=== PATIENT | male | born 1945 | race Caucasian/White ===

== ENCOUNTER 2019-11-05 12:47 | Outpatient (CLI) | payer MEDICARE, BC, SELFPAY ==
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
== END 2019-11-05 12:48 | disposition home or self-care (01) ==
LOC: ONCMED 12:55
PROVIDERS: PCP Family Medicine; Visit Provider Internal Medicine Medical Oncology
DX: C34.11 Malignant neoplasm of upper lobe, right bronchus or lung (principal); C77.0 Secondary and unspecified malignant neoplasm of lymph nodes of head, face and neck; C79.31 Secondary malignant neoplasm of brain; I12.9 Hypertensive chronic kidney disease with stage 1 through stage 4 chronic kidney disease, or unspecified chronic kidney disease; N18.9 Chronic kidney disease, unspecified; I25.10 Atherosclerotic heart disease of native coronary artery without angina pectoris; J44.9 Chronic obstructive pulmonary disease, unspecified; Z87.891 Personal history of nicotine dependence
CPT/HCPCS: 99203

== ENCOUNTER 2019-11-18 08:59 | Day surgery (SDC) | payer MEDICARE, BC, SELFPAY ==
[2019-11-15 17:37] VITALS: BMI 4510.9
--- NOTE | 2019-11-18 | SCC_ITS ---
Procedure Done: Right subclavian vein PowerPort placement under fluoroscopic guidance that was done by me through the whole entire procedure 16.8 seconds of fluoroscopic guidance, for a cumulative dose of 2.34 mGy, was provided to Dr. Gardner by the radiology department. C-arm images of the chest were saved for the patient's permanent record. [facility]
--- NOTE | 2019-11-18 08:56 | SC_ITS ---
WS: [id number] INTRAOPERATIVE TECHNIQUE: 2 Spot fluoroscopic images for intraoperative purposes. FLUOROSCOPY TIME: 16.8 seconds CLINICAL INFORMATION: Placement of Port-A-Cath COMPARISON: None. FINDINGS: Right Port-A-Cath with tip in the right atrium. No visualized pneumothorax. SC/C-arm [place] CVA 60204 IMPRESSION: Images obtained for intraoperative purposes.
[2019-11-18 09:11] VITALS: TEMP 36.1
[2019-11-18] MEDS: sodium chloride 0.9% 1,000 ML 30 ML IV (09:26)
--- NOTE | 2019-11-18 09:53 | W.PM.OPSUD ---
Surgery/Procedure H&P Update DATE OF PROCEDURE: November 18, 2019 DATE H&P PERFORMED: 11/16/19 H&P UPDATE INFORMATION: I have reviewed H&P completed within last 30 days, I have examined patient prior to procedure and No changes to prior documentation PREOP DIAGNOSIS: Lung cancer PRIMARY INDICATION FOR PROCEDURE: The same PLANNED PROCEDURE: Operation Date: 11/18/19 10:45 Proposed Procedures p Portacath Placement 66518 C34.90(Not Applicable) - Sunil Gardner MD
--- NOTE | 2019-11-18 10:11 | ANES.PREANE2 ---
Pre-Anesthetic Assessment Pre-Anesthetic Assessment: Height/Weight: Height 15.24 cm Weight 104.78 kg Temp 97 F L 11/18/19 09:11 Preop Diagnosis: Lung cancer Proposed Procedure: Operation Date: 11/18/19 10:45 Proposed Procedures p Portacath Placement 49819 C34.90(Not Applicable) - Sunil Gardner MD Was Beta Edgardo taken within 24 hours: Yes Last intake: Intake Last Liquid Date 11/17/19 Last Liquid Time 21:00 Last Solid Date 11/17/19 Last Solid Time 21:00 Social: Social History: No alcohol and No tobacco Exam: Pre-Anes Outpt Exam: alert, oriented x 3, clear to auscultation bilaterally and regular rate & rhythm Airway: Submandibular: WNL Cervical ROM: WNL MP: 2 Additional comments: WNL History/ROS: No significant history except as noted and No significant complaints Pulmonary: Pulmonary: COPD CV/HEM: CV/HEM: HTN Comments: Dyslipidemia : : None reported Hepatic: Hepatic: None reported GI: GI: GERD Metabolic: Metabolic: Morbid obesity Musc/skel: Musc/skel: None reported Neuropsych: Neuropsych: None reported Anesthetic Plan: ASA status: 3 Anesthesia: MAC Risk of > 500 ml blood loss (7ml/kg in children): No Meds/Allergies Current Medications: Current Medications Generic Name Dose Route Start Last Admin Trade Name Freq PRN Reason Stop Dose Admin Sodium Chloride 1,000 mls @ 30 ml s/hr 11/18/19 09:00 11/18/19 09:26 Sodium Chloride 0.9% IV 11/19/19 08:59 30 mls/hr .Q24H KAL Administration PFSH Anesthesia PFSH: Medical History Hypertension Kidney stone Lung cancer Seasonal allergies Family History Son Diabetes Mother Cancer Social History Smoking and tobacco status: former smoker Alcohol intake: never Household members: spouse Marital status: Current occupational status: retired History of recent travel: No Data Anesthesia Cardiac Studies: No Data to Display
[2019-11-18] MEDS: lidocaine 2% INJ 20 mL INJECTION (10:40)
[2019-11-18] MEDS: heparin, porcine 1,000 unit/mL INJ 10 mL 9000 UNIT IRRIGATION (10:49)
--- NOTE | 2019-11-18 10:59 | P.OP_ITS ---
Operative Report Date of procedure: November 18, 2019 Pre-op Diagnosis: Lung cancer Post-op diagnosis: same Post-op Findings: Normal-looking anatomy Procedure Done: Right subclavian vein PowerPort placement under fluoroscopic guidance that was done by me through the whole entire procedure Surgeon: Sunil Gardner Sharepoint Manager: commercial service technician [place] Circulating nurse Amelia Anesthesia: MAC (Reyes Clifton) Estimated blood loss (mL): 5 Condition: stable Disposition: same day Brief History: This is a pleasant 74 years old gentleman referred to my office with history of lung cancer requiring Port-A-Cath placement. plan of care; After thorough history physical examination and reviewing the chart, I counseled the patient for Port-A-Cath placement, indications, risks including pneumothorax and injury of major vascular structures, benefits,indications and alternatives were all discussed with the patient, patient understands and is interested to proceed. Rationale was carefully and clearly discussed with the patient.Appropriate informed consent have been reviewed and signed. Procedure: Patient was identified in the holding area and taken to the operative room and placed in supine position IV propofol was given by the anesthesia provider ,both arms were tucked,Time-out was done verifying the patient's name/date of /planned procedure and destination after the procedure, all were in agreement. SCDs confirmed to be functioning, preoperative antibiotics administered per protocol, and beta iain protocol was confirmed, appropriate positioning of the patient was done by me. Medications were reviewed to assess for anticoagulant usage. Risks and benefits and prevention of central line associated blood stream infection (CLABSI) were discussed with the patient/CPOA, and a consent was obtained. Monitors were in place and monitored throughout the procedure. All necessary supplies were available prior to start. Hand hygiene was completed prior to starting. Maximum barrier technique was utilized including a sterile gown, sterile gloves with a hat and mask. Site was was prepped with [chlorhexidine] and a full body drape was placed. 5 mL of 2% lidocaine was injected into the skin with a 25 gauge needle. Prep& drape was done under the usual sterile technique, lidocaine 2% was injected at the site of the stick, started by right subclavian stick that retrieved venous blood was obtained from the first stick, a guidewire was then threaded it was held did not go so I had to stop and re-stick again and at that point the guidewire slighted easily and smoothly and under the guidance of fluoroscopy position was confirmed to be in the IVC and my interpretation, there was no PVC changes, at that point the guidewire was secured to the drapes with a hemostat and the needle was taken out, attention was then deviated towards creation of a pocket for the port were lidocaine 2% was injected using an 15 blade knife skin incision was created dissection using the Bovie to create a pocket for the Port-A-Cath to be accommodated, hemostasis was secured, after the port being appropriately flushed it was inserted into the pocket and a tunneler was used to accommodate the catheter of the port cath to be delivered through the incision first created at the site of the stick, at that point under fluoroscopy an estimated length was measured for the catheter and was cut at the designed level, followed by that a dilator with the sheath introduced onto the guidewire the dilator and the wire were retrieved and the catheter of the port was introduced via the sheath where it was peeled off and the catheter maintained to be in the SVC that was confirmed with fluoroscopy, and the fluoroscopy interpretation was done by me throughout the entire procedure. The port was kept in its place,3-0 Vicryl deep subdermal interrupted sutures, skin was then closed by 4-0 Monocryl as subcuticular closure. The stick site was closed by 4-0 Monocryl and Dermabond was used followed by dressing. Patient tolerated the procedure well was taken to the recovery area Count was correct at the end of the procedure I was present for the whole entire procedure Position of the catheter was checked with a postoperative chest x-ray and it was in good position without evidence of pneumothorax.
[2019-11-18 11:08] VITALS: BP 124/61; PULSE 56; RESP 18; TEMP 36.1; O2SAT 95
--- NOTE | 2019-11-18 11:08 | XR_ITS ---
WS: [id number] CHEST XRAY TECHNIQUE: Portable chest. CLINICAL INFORMATION: s/p Right SC vein poer port placement COMPARISON: FINDINGS: Right Port-A-Cath with tip in distal SVC. Heart: Cardiomegaly. Aortic calcification. Lungs: Right midlung mass appears similar to the prior CT October 03, 2019. Small surrounding satellite nodules. No pneumothorax. Right hilar lymphadenopathy Bones: Normal visualized bony structures. XR/XR chest 1V portable [id number] IMPRESSION: 1. Right Port-A-Cath tip in distal SVC 2. Right lung mass similar to the prior CT
--- NOTE | 2019-11-18 11:28 | SUR.PHASEII ---
1125 Oncology clinic notified of patient portacath placement.
[2019-11-18 11:38] VITALS: BP 116/62; PULSE 55; RESP 18; O2SAT 95
== END 2019-11-18 11:44 | disposition home or self-care (01) ==
PROVIDERS: PCP Family Medicine; Visit Provider Surgery
PROC: (CPT 36561; principal; 2019-11-18 10:45)
DX: C34.90 Malignant neoplasm of unspecified part of unspecified bronchus or lung (principal); J44.9 Chronic obstructive pulmonary disease, unspecified; I10 Essential (primary) hypertension; E78.5 Hyperlipidemia, unspecified; K21.9 Gastro-esophageal reflux disease without esophagitis; E66.01 Morbid (severe) obesity due to excess calories; Z68.42 Body mass index [BMI] 45.0-49.9, adult; Z87.891 Personal history of nicotine dependence; Z79.82 Long term (current) use of aspirin
CPT/HCPCS: 36561; 12345; 71045; 76000; 77001; 96365; C1788; J0690; J1644; J2250; J2704; J3010; J7030

== ENCOUNTER 2019-11-25 13:00 | Outpatient (RCR) | payer MEDICARE, BC, SELFPAY ==
[2019-11-11 15:03] LABS: Basophils % 0.2 %; Eosinophils # 0.2 10^3/uL (0.0-0.8); Eosinophils % 5.2 %; Hematocrit 40.5 % (42.0-52.0); Hemoglobin 12.9 g/dL (11.7-16.6); Lymphocytes # 0.8 10^3/uL (0.8-4.8); Mean Corpuscular HGB Conc 31.9 g/dL (30.0-36.0); Mean Corpuscular Hemoglobin 28.9 pg (28.0-34.0); Mean Corpuscular Volume 90.6 fL (80-94); Mean Platelet Volume 11.7 fL (7.4-10.4); Monocytes # 0.7 10^3/uL (0.2-0.9); Monocytes % 15.2 %; Neutrophils # 2.56 10^3/uL (1.8-7.7); Neutrophils % 59.9 %; Nucleated Red Blood Cells % 0 %; Platelet Count 191 10^3/cmm (130-400); Red Blood Count 4.47 10^6/uL (4.1-5.3); Red Cell Distribution Width 13.2 % (12.1-15.1); White Blood Count 4.3 10^3/uL (4.0-10.0)
[2019-11-11 15:10] LABS: Alanine Aminotransferase 18 U/L (0-41); Albumin Level 4.3 g/dL (3.5-5.2); Alkaline Phosphatase 69 IU/L (40-130); Anion Gap 11.7 (5-19); Aspartate Amino Transferase 18 U/L (0-40); Blood Urea Nitrogen 30 mg/dL (8-23); Carbon Dioxide 31 mmol/L (22-29); Chloride 100 mmol/L (98-107); Globulin 3.2 g/dL (1.3-4.6); Glucose 116 mg/dL (65-115); Osmolality Calculated 284 mOsm/kg (285-295); Potassium 4.7 mmol/L (3.5-5.1); Sodium 138 mmol/L (136-145); Total Bilirubin 0.4 mg/dL (0.15-1.2); Total Protein 7.5 g/dL (6.6-8.7)
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
--- NOTE | 2019-11-12 | CT_ITS ---
Radiation Therapy Planning CT images; total exam DLP: 1868.05 mGy-cm MTDD
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
[2019-11-20 09:42] LABS: Basophils % 0.2 %; Hematocrit 40.2 % (42.0-52.0); Hemoglobin 12.8 g/dL (11.7-16.6); Lymphocytes # 0.4 10^3/uL (0.8-4.8); Mean Corpuscular HGB Conc 31.8 g/dL (30.0-36.0); Mean Platelet Volume 10.8 fL (7.4-10.4); Monocytes % 0.7 %; Neutrophils # 3.94 10^3/uL (1.8-7.7); Neutrophils % 89.2 %; Nucleated Red Blood Cells % 0 %; Platelet Count 238 10^3/cmm (130-400); Red Blood Count 4.57 10^6/uL (4.1-5.3); Red Cell Distribution Width 12.9 % (12.1-15.1); White Blood Count 4.4 10^3/uL (4.0-10.0)
[2019-11-20 10:01] LABS: Alanine Aminotransferase 20 U/L (0-41); Albumin Level 4.2 g/dL (3.5-5.2); Alkaline Phosphatase 75 IU/L (40-130); Anion Gap 13.8 (5-19); Aspartate Amino Transferase 21 U/L (0-40); Blood Urea Nitrogen 20 mg/dL (8-23); Carbon Dioxide 27 mmol/L (22-29); Chloride 98 mmol/L (98-107); Glucose 325 mg/dL (65-115); Osmolality Calculated 287 mOsm/kg (285-295); Potassium 4.8 mmol/L (3.5-5.1); Sodium 134 mmol/L (136-145); Total Bilirubin 0.4 mg/dL (0.15-1.2); Total Protein 7.2 g/dL (6.6-8.7)
[2019-11-20] MEDS: sodium chloride 0.9% 250 ML 75 ML IV (10:40)
--- NOTE | 2019-11-25 | MR_ITS ---
WS: [id number] MRI CERVICAL SPINE with and without contrast. HISTORY: LUNG CA COMPARISON: None. MRI cervical spine is performed with and without contrast. Mild increase in cervical lordosis. Mild degenerative disc space narrowing and desiccation at C5-6 an d C6-7. Age-related osteopenia and hypertrophic endplate osteophytes. There is no marrow edema or abn ormal enhancement. No discitis or osteomyelitis or metastatic disease. Signal within the cervical cord is normal. Visualized posterior fossa is unremarkable. Craniocervical junction, C1 and C2 relationship, odontoid process and soft tissues are normal. C2-C3: Central disc protrusion. No stenosis. C3-C4: Shallow central disc protrusion with facet arthritis. Mild LEFT foraminal narrowing. C4-C5: Mild diffuse osteophytic ridging with a central small disc protrusion with effacement of CSF. Mild central stenosis. C5-C6: Diffuse annular disc bulging with facet and ligamentum flavum arthritis. Mild central and RIGH T foraminal stenosis. C6-C7: Mild annular disc bulging and osteophytic ridging. Mild bilateral foraminal stenosis. C7-T1: Central disc protrusion without stenosis. RIGHT supraclavicular lymph node measures 2.1 cm transversely. There is a smaller lymph node lateral to the jugular vein measuring 10 mm. Patient has known metastatic disease. MR/MR cervical spine wo/w [id number] IMPRESSION: 1. No metastatic disease to the cervical spine. 2. Mild central stenosis at C4-5 and C5-6. Mild LEFT foraminal stenosis at C3- 4, RIGHT foraminal stenosis at C5-6 and bilaterally at C6-7. 3. RIGHT supraclavicular lymphadenopathy. The largest lymph node measures 2.1 cm. Previously described on PET/CT from 10/09/2019.
--- NOTE | 2019-11-25 12:41 | MR_ITS ---
WS: [id number] MRI THORACIC SPINE with and without contrast. HISTORY: LUNG CA W/ BRAIN METS COMPARISON: None available. TECHNIQUE: Multiplanar sequences are performed in sagittal and axial planes. Sagittal and axial T1 fa t sat sequences post-ProHance 17 cc IV. Very mild increase in thoracic kyphosis. There are no hypointense T1 lesions throughout the thoracic spine of concern. No areas of abnormal enhancement. There is no marrow edema on the T2 sequences to s uggest metastatic disease. Signal within the cord is normal. No cord compression. No cord compression or disc protrusions. Mild facet joint arthritis throughout the thoracic spine. No focal disc protrusions. On the postcontrast imaging there is no evidence for metastatic disease, discitis or osteomyelitis. Patient has a known RIGHT upper lobe mass which is noted measuring 3.2 x 3.4 cm. MR/MR thoracic spine wo/w [id number] IMPRESSION: 1. No evidence for metastatic disease to the thoracic spine. 2. No cord compression. 3. RIGHT upper lobe mass 3.2 x 3.4 cm has been previous the described.
[2019-11-25 14:35] LABS: Basophils % 0.7 %; Eosinophils # 0.1 10^3/uL (0.0-0.8); Eosinophils % 3.7 %; Hematocrit 38.5 % (42.0-52.0); Hemoglobin 12.4 g/dL (11.7-16.6); Lymphocytes # 0.6 10^3/uL (0.8-4.8); Lymphocytes % 19.3 %; Mean Corpuscular HGB Conc 32.2 g/dL (30.0-36.0); Mean Corpuscular Hemoglobin 28.7 pg (28.0-34.0); Mean Corpuscular Volume 89.1 fL (80-94); Mean Platelet Volume 11.2 fL (7.4-10.4); Monocytes # 0.1 10^3/uL (0.2-0.9); Monocytes % 4.4 %; Neutrophils % 71.2 %; Nucleated Red Blood Cells % 0 %; Platelet Count 239 10^3/cmm (130-400); Red Blood Count 4.32 10^6/uL (4.1-5.3)
[2019-11-25 14:53] LABS: Alanine Aminotransferase 26 U/L (0-41); Albumin Level 4.1 g/dL (3.5-5.2); Alkaline Phosphatase 57 IU/L (40-130); Anion Gap 15.9 (5-19); Aspartate Amino Transferase 16 U/L (0-40); Blood Urea Nitrogen 37 mg/dL (8-23); Calcium 8.4 mg/dL (8.5-10.5); Carbon Dioxide 26 mmol/L (22-29); Chloride 101 mmol/L (98-107); Globulin 2.8 g/dL (1.3-4.6); Glucose 174 mg/dL (65-115); Osmolality Calculated 288 mOsm/kg (285-295); Potassium 4.9 mmol/L (3.5-5.1); Sodium 138 mmol/L (136-145); Total Bilirubin 0.4 mg/dL (0.15-1.2); Total Protein 6.9 g/dL (6.6-8.7)
== END 2019-11-25 23:59 | disposition home or self-care (01) ==
LOC: ONCMED 13:00
PROVIDERS: Internal Medicine Hematology & Oncology; PCP Family Medicine; Visit Provider Radiology Radiation Oncology
DX: Z51.0 Encounter for antineoplastic radiation therapy (principal); Z51.11 Encounter for antineoplastic chemotherapy; C34.11 Malignant neoplasm of upper lobe, right bronchus or lung; C79.31 Secondary malignant neoplasm of brain; J44.9 Chronic obstructive pulmonary disease, unspecified; I12.9 Hypertensive chronic kidney disease with stage 1 through stage 4 chronic kidney disease, or unspecified chronic kidney disease; N18.9 Chronic kidney disease, unspecified; Z79.899 Other long term (current) drug therapy
CPT/HCPCS: 36591; 72156; 72157; 77300; 77301; 77334; 77338; 77386; 77470; 80053; 85025; 96367; 96413; 96417; 99214; 99215; A9579; J1100; J1200; J2250; J2469; J2704; J3010; J3490; J7030; J7050; J9045; J9267

== ENCOUNTER 2019-12-25 05:36 | Outpatient (RCR) | payer MEDICARE, BC, SELFPAY ==
--- NOTE | 2019-11-26 14:52 | ONCRAD TMN_ITS ---
Radiation Oncology Weekly Treatment Management Patient: Shyam Hurt MR#: [id number] : 1945 Age: 74 Sex: Male Dictated by: Dr. 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 Tumor burden involves right upper lobe of lung, mediastinum, right supraclavicular region up to level 4 in the right neck, and a subcentimeter lesion in the wall of the right lateral ventricle (SRS treatment planning scheduled at [place] ~11/22/2019). Radiotherapy to date: Course: Neck R Lung 2019, Treatment Site: RT Lung 60Gy, Ref. ID: [id number], Energy: 6X, Dose/Fx (cGy): 200, #Fx: , Dose Correction (cGy): 0, Total Dose (cGy): 800, Start Date: 11/20/2019, Elapsed Days: 6 Reason for visit: The patient is being seen today as part of their regularly scheduled weekly on treatment visits to assess for acute toxicities from radiotherapy. Interim History: The patient is seen after receiving 4 fractions, and he has no acute side effects from treatment thus far. Reports an occasional cough which is productive for clear sputum. He has persistent shortness of breath due to COPD, and he reports mildly altered taste. Work-up at [facility] in [place] reveals that the concerning intracranial lesion may not be due to metastasis. Therefore, planning for gamma knife radiation has been placed on hold and it was recommended that the patient have surveillance with an MRI in 3 months. [facility] neurosurgery and radiation oncology are managing this. Recent MRI of the cervical spine and thoracic spine reveal no evidence of metastatic disease. Current Medications: Ambien, amLODIPine Besylate, aspirin, cARBOplatin, carvedilol, chlorthalidone, dexamethasone, dexamethasone Sodium Phosphate, diphenhydrAMINE HCl, escitalopram Oxalate, famotidine in NaCl, lisinopril, loratadine, lORazepam, nyQuil HBP Cold & Flu, omeprazole, pACLitaxel, palonosetron HCl, prochlorperazine Maleate, simvastatin, tylenol PM Extra Strength. Allergies: No Known Allergies Current Complaints/Review of Systems: Constitutional - Complains of mild fatigue. Denies lack of appetite, fever and night sweats. ENMT - Complains of altered taste which is slight. Denies dysphagia and stomatitis. Cardiovascular - Denies arrhythmias, chest pain and edema. Respiratory - Complains of cough occasionally and is productive. Color of sputum is clear.. Complains of chronic dyspnea. Complains of wheezing occasionally. Denies hemoptysis. Vital Signs: Performed on 11/26/2019 9:57 AM BMI - 31.031 kg/m2 (high), Height - 72.00 in, Weight - 228.8 lbs, Temperature - 97.6 f, Pulse - 64, Respiration - 20, O2 Sat - 95 % (low), Pain - 0 and BP - 122/ 69 mm(hg). Physical Exam: Appears stable, no skin erythema or desquamation. Performance Status: 0 - Fully active, able to carry on all predisease activities without restrictions. (ECOG) Lab: None pending in Radiation Oncology. Test performed on 11/11/2019 2:36 PM Manual Monocytes - 15.2 % (high), BUN - 30 mg/dl (high), Test performed on 11/20/2019 9:28 AM HCT - 40.2 % (low), MPV - 10.8 fl (high), Lymphocytes - 0.4 10 3/ul (low), Monocytes - 0.0 10 3/ul (low) and Test performed on 11/20/2019 10:34 AM Cr Clearance (Est) - 54.31 ml/min (low). Imaging: Radiation therapy imaging related to accurate target localization (i.e. KV, MV and CBCT) was reviewed. Appropriate changes, if any, were made to ensure treatment accuracy. Plan: The patient is tolerating therapy reasonably well. Radiotherapy will continue as planned. CPT: 06259 Signed by: Dr. Chaitanya Mcdaniel 11/26/2019 2:49:48 PM
[2019-11-28] MEDS: sodium chloride 0.9% 250 ML 75 ML IV (09:30)
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
--- NOTE | 2019-12-03 16:55 | ONCRAD TMN_ITS ---
Radiation Oncology Weekly Treatment Management Patient: Shyam Hurt MR#: [id number] : 1945 Age: 74 Sex: Male Dictated by: Dr. 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 Tumor burden involves right upper lobe of lung, mediastinum, right supraclavicular region up to level 4 in the right neck, and a subcentimeter lesion in the wall of the right lateral ventricle (SRS treatment planning scheduled at [place] ~11/22/2019). Radiotherapy to date: Course: Neck R Lung 2019, Treatment Site: RT Lung 60Gy, Ref. ID: [id number], Energy: 6X, Dose/Fx (cGy): 200, #Fx: , Dose Correction (cGy): 0, Total Dose (cGy): 1,600, Start Date: 11/20/2019, Elapsed Days: 13 Reason for visit: The patient is being seen today as part of their regularly scheduled weekly on treatment visits to assess for acute toxicities from radiotherapy. Interim History: The patient reports fatigue, but no dizziness when standing. He also reports no painful swallowing, and no worsening shortness of breath. He is scheduled to have chemotherapy tomorrow. Current Medications: Ambien, amLODIPine Besylate, aspirin, cARBOplatin, carvedilol, chlorthalidone, dexamethasone, dexamethasone Sodium Phosphate, diphenhydrAMINE HCl, escitalopram Oxalate, famotidine in NaCl, lisinopril, loratadine, lORazepam, nyQuil HBP Cold & Flu, omeprazole, pACLitaxel, palonosetron HCl, prochlorperazine Maleate, simvastatin, tylenol PM Extra Strength. Allergies: No Known Allergies Current Complaints/Review of Systems: Constitutional - Complains of lack of appetite off and on. Complains of mild fatigue. Complains of change in weight in which his weight is down 4.0 lbs. since last OTV. Denies fever. ENMT - Complains of mild altered taste. Denies dysphagia but occasionally has odynophagia. Cardiovascular - Denies chest pain and edema. Respiratory - Complains of dyspnea associated with normal activity. Denies cough, hemoptysis and wheezing. Vital Signs: Performed on 12/03/2019 9:45 AM BMI - 30.57 kg/m2 (high), Height - 72.00 in, Weight - 225.4 lbs, Temperature - 97.0 f, Pulse - 62, Respiration - 20, O2 Sat - 96 %, Pain - 0 and BP - 97/ 63 mm(hg)(/low). Physical Exam: Appears stable, no skin erythema or desquamation. Lungs are clear to auscultation bilaterally. Performance Status: 0 - Fully active, able to carry on all predisease activities without restrictions. (ECOG) Lab: None pending in Radiation Oncology. Test performed on 11/27/2019 8:29 AM WBC - 3.0 10^9/l (low), HGB - 12.4 g/dl (low), BUN - 37 mg/dl (high), Cr Clearance (Est) - 65.17 ml/min (low) and Calcium - 8.4 mg/dl (low). Imaging: Radiation therapy imaging related to accurate target localization (i.e. KV, MV and CBCT) was reviewed. Appropriate changes, if any, were made to ensure treatment accuracy. Plan: The patient is tolerating therapy reasonably well. Radiotherapy will continue as planned. CPT: 12340 Signed by: Dr. Chaitanya Mcdaniel 12/03/2019 4:53:30 PM
[2019-12-04 08:09] LABS: Hematocrit 41.4 % (42.0-52.0); Hemoglobin 13.5 g/dL (11.7-16.6); Lymphocytes # 0.1 10^3/uL (0.8-4.8); Lymphocytes % 9.8 %; Mean Corpuscular HGB Conc 32.6 g/dL (30.0-36.0); Mean Corpuscular Hemoglobin 28.8 pg (28.0-34.0); Mean Corpuscular Volume 88.3 fL (80-94); Mean Platelet Volume 11.2 fL (7.4-10.4); Monocytes % 1.5 %; Neutrophils # 1.14 10^3/uL (1.8-7.7); Neutrophils % 86.4 %; Nucleated Red Blood Cells % 0 %; Platelet Count 171 10^3/cmm (130-400); Red Blood Count 4.69 10^6/uL (4.1-5.3); Red Cell Distribution Width 12.8 % (12.1-15.1); White Blood Count 1.3 10^3/uL (4.0-10.0)
[2019-12-04 08:27] LABS: Alanine Aminotransferase 49 U/L (0-41); Albumin Level 4.5 g/dL (3.5-5.2); Alkaline Phosphatase 59 IU/L (40-130); Anion Gap 13.1 (5-19); Aspartate Amino Transferase 35 U/L (0-40); Blood Urea Nitrogen 31 mg/dL (8-23); Calcium 8.9 mg/dL (8.5-10.5); Carbon Dioxide 28 mmol/L (22-29); Chloride 97 mmol/L (98-107); Globulin 2.8 g/dL (1.3-4.6); Glucose 275 mg/dL (65-115); Osmolality Calculated 283 mOsm/kg (285-295); Potassium 5.1 mmol/L (3.5-5.1); Sodium 133 mmol/L (136-145); Total Bilirubin 0.5 mg/dL (0.15-1.2); Total Protein 7.3 g/dL (6.6-8.7)
[2019-12-06 09:09] LABS: Hematocrit 39.6 % (42.0-52.0); Hemoglobin 12.7 g/dL (11.7-16.6); Mean Corpuscular HGB Conc 32.1 g/dL (30.0-36.0); Mean Corpuscular Hemoglobin 28.9 pg (28.0-34.0); Mean Platelet Volume 11.3 fL (7.4-10.4); Platelet Count 144 10^3/cmm (130-400); Red Cell Distribution Width 13.3 % (12.1-15.1); White Blood Count 6.3 10^3/uL (4.0-10.0)
[2019-12-06 09:19] LABS: Alanine Aminotransferase 37 U/L (0-41); Albumin Level 4.3 g/dL (3.5-5.2); Alkaline Phosphatase 57 IU/L (40-130); Anion Gap 12.3 (5-19); Aspartate Amino Transferase 14 U/L (0-40); Blood Urea Nitrogen 37 mg/dL (8-23); Calcium 8.7 mg/dL (8.5-10.5); Carbon Dioxide 31 mmol/L (22-29); Chloride 98 mmol/L (98-107); Globulin 2.6 g/dL (1.3-4.6); Glucose 158 mg/dL (65-115); Osmolality Calculated 285 mOsm/kg (285-295); Potassium 4.3 mmol/L (3.5-5.1); Sodium 137 mmol/L (136-145); Total Bilirubin 0.6 mg/dL (0.15-1.2); Total Protein 6.9 g/dL (6.6-8.7)
[2019-12-06 10:10] LABS: Slide Review Slide Review Perform
[2019-12-06 10:15] LABS: Band Neutrophils Absolute 1.1 10^3/cmm (0.0-1.2); Lymphocytes 9 %; Lymphocytes Absolute 0.6 10^3/cmm (1.2-3.4); Monocytes Absolute 0.3 10^3/cmm (0.1-0.6); Segmented Neutrophils 64 %; Total Cells Counted 100 (0-100)
[2019-12-06 10:16] LABS: Absolute Neutrophil 5.1 10^3/cmm (1.4-6.5); Platelet Estimate Normal (Normal); Smudge Cells 1+
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
[2019-12-09] MEDS: sodium chloride 0.9% 250 ML 75 ML IV (09:50)
[2019-12-09 10:11] LABS: Hematocrit 40.5 % (42.0-52.0); Hemoglobin 12.9 g/dL (11.7-16.6); Lymphocytes # 0.3 10^3/uL (0.8-4.8); Mean Corpuscular HGB Conc 31.9 g/dL (30.0-36.0); Mean Corpuscular Hemoglobin 28.2 pg (28.0-34.0); Mean Corpuscular Volume 88.4 fL (80-94); Mean Platelet Volume 11.4 fL (7.4-10.4); Monocytes # 0.6 10^3/uL (0.2-0.9); Monocytes % 10.3 %; Neutrophils # 3.56 10^3/uL (1.8-7.7); Nucleated Red Blood Cells % 0.4 %; Platelet Count 130 10^3/cmm (130-400); Red Blood Count 4.58 10^6/uL (4.1-5.3); Red Cell Distribution Width 13.5 % (12.1-15.1); White Blood Count 5.6 10^3/uL (4.0-10.0)
[2019-12-09 10:30] LABS: Alanine Aminotransferase 34 U/L (0-41); Albumin Level 4.1 g/dL (3.5-5.2); Alkaline Phosphatase 66 IU/L (40-130); Anion Gap 16.6 (5-19); Aspartate Amino Transferase 20 U/L (0-40); Blood Urea Nitrogen 32 mg/dL (8-23); Calcium 8.6 mg/dL (8.5-10.5); Carbon Dioxide 26 mmol/L (22-29); Chloride 94 mmol/L (98-107); Globulin 2.8 g/dL (1.3-4.6); Glucose 243 mg/dL (65-115); Osmolality Calculated 279 mOsm/kg (285-295); Potassium 4.6 mmol/L (3.5-5.1); Sodium 132 mmol/L (136-145); Total Bilirubin 0.3 mg/dL (0.15-1.2); Total Protein 6.9 g/dL (6.6-8.7)
[2019-12-09 11:08] LABS: Neutrophils % 84.7 %; Slide Review Slide Review Perform
--- NOTE | 2019-12-11 16:00 | ONCRAD TMN_ITS ---
Radiation Oncology Weekly Treatment Management Patient: Shyam Hurt MR#: [id number] : 1945 Age: 74 Sex: Male Dictated by: Dr. Chaitanya Mcdaniel Date of Service: 12/10/2019 Referring Physician(s) : Diagnosis: C34.11 - Malignant neoplasm of upper lobe, right bronchus or lung, Diagnosed 11/05/2019 (Active) Diagnosis: [id number] adenocarcinoma of the right upper lobe of lung, PDL-1 negative. Tumor burden involves right upper lobe of lung, mediastinum, right supraclavicular region up to level 4 in the right neck, and a ???possible??? subcentimeter lesion in the wall of the right lateral ventricle. SRS for this lesion was considered at [place], yet they elected careful observation rather than proceeding with SRS treatment. Radiotherapy to date: Course: Neck R Lung 2019, Treatment Site: RT Lung 60Gy, Ref. ID: [id number], Energy: 6X, Dose/Fx (cGy): 200, #Fx: , Dose Correction (cGy): 0, Total Dose (cGy): 2,600, Start Date: 11/20/2019, Elapsed Days: 20 Reason for visit: The patient is being seen today as part of their regularly scheduled weekly on treatment visits to assess for acute toxicities from radiotherapy. Interim History: The patient reports odynophagia which is responsive to miracle mouthwash. He continues to have a cough productive for clear sputum. Current Medications: Ambien, amLODIPine Besylate, aspirin, cARBOplatin, carvedilol, chlorthalidone, dexamethasone, dexamethasone Sodium Phosphate, diphenhydrAMINE HCl, escitalopram Oxalate, famotidine in NaCl, lisinopril, loratadine, lORazepam, nyQuil HBP Cold & Flu, omeprazole, pACLitaxel, palonosetron HCl, prochlorperazine Maleate, simvastatin, tylenol PM Extra Strength. Allergies: No Known Allergies Current Complaints/Review of Systems: Constitutional - Complains of mild fatigue. Denies lack of appetite, fever, night sweats and change in weight. ENMT - Has esophageal pain with swallowing . Cardiovascular - Denies chest pain. Respiratory - Complains of a mild cough which is productive and the sputum is clear in color. Complains of dyspnea associated with normal activity. Complains of mild wheezing. Denies hemoptysis. Vital Signs: Performed on 12/10/2019 9:36 AM BMI - 30.678 kg/m2 (high), Height - 72.00 in, Weight - 226.2 lbs, Temperature - 98.0 f, Pulse - 66, Respiration - 20, O2 Sat - 98 %, Pain - 0 and BP - 141/ 72 mm(hg)(high/). Physical Exam: Appears stable, no skin erythema or desquamation. Performance Status: 1 - No physically strenuous activity, but ambulatory and able to carry out light or sedentary work (e.g. office work, light house work). (ECOG) Lab: None pending in Radiation Oncology. Test performed on 11/27/2019 8:29 AM BUN - 37 mg/dl (high), Calcium - 8.4 mg/dl (low), Test performed on 12/04/2019 7:35 AM WBC - 1.3 10 3/ul (low), HCT - 41.4 % (low), MPV - 11.2 fl (high), Neutrophils - 1.14 10 3/ul (low), Lymphocytes - 0.1 10 3/ul (low), Monocytes - 0.0 10 3/ul (low), Test performed on 12/06/2019 8:52 AM Creatinine - 1.5 mg/dl (high) and Cr Clearance (Est) - 65.17 ml/min (low). Imaging: Radiation therapy imaging related to accurate target localization (i.e. KV, MV and CBCT) was reviewed. Appropriate changes, if any, were made to ensure treatment accuracy. Plan: The patient is tolerating therapy reasonably well. Radiotherapy will continue as planned. CPT: 05796 Signed by: Dr. Chaitanya Mcdaniel 12/11/2019 3:59:01 PM
[2019-12-13 08:59] LABS: Basophils % 0.9 %; Eosinophils % 0.9 %; Hematocrit 43.1 % (42.0-52.0); Hemoglobin 13.5 g/dL (11.7-16.6); Lymphocytes # 0.2 10^3/uL (0.8-4.8); Lymphocytes % 10.9 %; Mean Corpuscular HGB Conc 31.3 g/dL (30.0-36.0); Mean Corpuscular Hemoglobin 28.1 pg (28.0-34.0); Mean Corpuscular Volume 89.8 fL (80-94); Mean Platelet Volume 11.9 fL (7.4-10.4); Monocytes # 0.1 10^3/uL (0.2-0.9); Monocytes % 4.1 %; Neutrophils # 1.79 10^3/uL (1.8-7.7); Neutrophils % 81.4 %; Nucleated Red Blood Cells % 0 %; Platelet Count 100 10^3/cmm (130-400); Red Cell Distribution Width 13.5 % (12.1-15.1); White Blood Count 2.2 10^3/uL (4.0-10.0)
[2019-12-13 09:18] LABS: Alanine Aminotransferase 31 U/L (0-41); Alkaline Phosphatase 66 IU/L (40-130); Anion Gap 13.7 (5-19); Aspartate Amino Transferase 13 U/L (0-40); Blood Urea Nitrogen 25 mg/dL (8-23); Calcium 9.1 mg/dL (8.5-10.5); Carbon Dioxide 30 mmol/L (22-29); Chloride 99 mmol/L (98-107); Globulin 2.7 g/dL (1.3-4.6); Glucose 186 mg/dL (65-115); Osmolality Calculated 295 mOsm/kg (285-295); Potassium 4.7 mmol/L (3.5-5.1); Sodium 138 mmol/L (136-145); Total Bilirubin 0.5 mg/dL (0.15-1.2); Total Protein 6.7 g/dL (6.6-8.7)
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
[2019-12-16 08:54] LABS: Eosinophils % 0.5 %; Hematocrit 40.4 % (42.0-52.0); Hemoglobin 12.9 g/dL (11.7-16.6); Lymphocytes # 0.1 10^3/uL (0.8-4.8); Lymphocytes % 3.3 %; Mean Corpuscular HGB Conc 31.9 g/dL (30.0-36.0); Mean Corpuscular Hemoglobin 28.2 pg (28.0-34.0); Mean Corpuscular Volume 88.4 fL (80-94); Mean Platelet Volume 10.8 fL (7.4-10.4); Monocytes % 0.9 %; Neutrophils # 2.01 10^3/uL (1.8-7.7); Neutrophils % 94.4 %; Nucleated Red Blood Cells % 0 %; Platelet Count 122 10^3/cmm (130-400); Red Blood Count 4.57 10^6/uL (4.1-5.3); Red Cell Distribution Width 12.9 % (12.1-15.1); White Blood Count 2.1 10^3/uL (4.0-10.0)
[2019-12-16] MEDS: sodium chloride 0.9% 250 ML 75 ML IV (09:45)
--- NOTE | 2019-12-18 16:30 | ONCRAD TMN_ITS ---
Radiation Oncology Weekly Treatment Management Patient: Shyam Hurt MR#: [id number] : 1945 Age: 74 Sex: Male Dictated by: Dr. Chaitanya Mcdaniel Date of Service: 12/17/2019 Referring Physician(s) : Diagnosis: C34.11 - Malignant neoplasm of upper lobe, right bronchus or lung, Diagnosed 11/05/2019 (Active) C77.0 - Secondary and unspecified malignant neoplasm of lymph nodes of head, face and neck, Diagnosed 11/05/2019 (Active) C79.31 - Secondary malignant neoplasm of brain, Diagnosed 11/05/2019 (Active) Diagnosis: [id number] adenocarcinoma of the right upper lobe of lung, PDL-1 negative. Tumor burden involves right upper lobe of lung, mediastinum, right supraclavicular region up to level 4 in the right neck, and a ???possible??? subcentimeter lesion in the wall of the right lateral ventricle. SRS for this lesion was considered at [facility], yet they elected careful observation rather than proceeding with SRS treatment. Radiotherapy to date: Course: Neck R Lung 2019, Treatment Site: RT Lung 60Gy, Ref. ID: [id number], Energy: 6X, Dose/Fx (cGy): 200, #Fx: 18 / 30, Dose Correction (cGy): 0, Total Dose (cGy): 3,600, Start Date: 11/20/2019, Elapsed Days: 27 Reason for visit: The patient is being seen today as part of their regularly scheduled weekly on treatment visits to assess for acute toxicities from radiotherapy. Interim History: The patient reports odynophagia which is managed with miracle mouthwash. The patient is maintaining his weight. Current Medications: Ambien, amLODIPine Besylate, aspirin, cARBOplatin, carvedilol, chlorthalidone, dexamethasone, dexamethasone Sodium Phosphate, diphenhydrAMINE HCl, escitalopram Oxalate, famotidine in NaCl, lisinopril, loratadine, lORazepam, neupogen, nyQuil HBP Cold & Flu, omeprazole, pACLitaxel, palonosetron HCl, prochlorperazine Maleate, simvastatin, tylenol PM Extra Strength. Allergies: No Known Allergies Current Complaints/Review of Systems: Constitutional - Complains of moderate fatigue. Denies lack of appetite, fever, night sweats and change in weight. ENMT - Complains of altered taste. Denies dysphagia but has odynophagia with swallowing. Cardiovascular - Denies chest pain and edema. Respiratory - Complains of a mild cough which is non-productive occasionally. Complains of dyspnea associated with normal activity. Complains of hiccoughs. Denies hemoptysis and wheezing. Vital Signs: Performed on 12/17/2019 9:40 AM BMI - 30.489 kg/m2 (high), Height - 72.00 in, Weight - 224.8 lbs, Temperature - 98.2 f, Pulse - 74, Respiration - 20, O2 Sat - 97 %, Pain - 0 and BP - 126/ 69 mm(hg). Physical Exam: Appears stable, no skin erythema or desquamation. Lungs are clear to auscultation bilaterally. Performance Status: 1 - No physically strenuous activity, but ambulatory and able to carry out light or sedentary work (e.g. office work, light house work). (ECOG) Lab: None pending in Radiation Oncology. Test performed on 12/09/2019 9:30 AM Osmolality - Calculated - 279 mosm/kg (low), Test performed on 12/13/2019 10:37 AM WBC - 2.2 10^9/l (low), MCHC - 31.3 g/dl (low), Platelet Count - 100 10^9/l (low), Neutrophils (Gran) - 1.79 10^9/l (low), Lymphocytes - 0.2 10^9/l (low) and Test performed on 12/16/2019 7:45 AM Cr Clearance (Est) - 57.50 ml/min (low). Imaging: Radiation therapy imaging related to accurate target localization (i.e. KV, MV and CBCT) was reviewed. Appropriate changes, if any, were made to ensure treatment accuracy. Plan: The patient is tolerating therapy reasonably well. Radiotherapy will continue as planned. CPT: 58078 Signed by: Dr. Chaitanya Mcdaniel 12/18/2019 4:28:43 PM
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
[2019-12-20 10:15] LABS: Hematocrit 36.9 % (42.0-52.0); Hemoglobin 11.7 g/dL (11.7-16.6); Mean Corpuscular HGB Conc 31.7 g/dL (30.0-36.0); Mean Corpuscular Hemoglobin 28.5 pg (28.0-34.0); Mean Corpuscular Volume 89.8 fL (80-94); Mean Platelet Volume 10.9 fL (7.4-10.4); Platelet Count 102 10^3/cmm (130-400); Red Blood Count 4.11 10^6/uL (4.1-5.3); Red Cell Distribution Width 13.2 % (12.1-15.1)
[2019-12-20 10:40] LABS: Alanine Aminotransferase 31 U/L (0-41); Alkaline Phosphatase 58 IU/L (40-130); Anion Gap 11.2 (5-19); Aspartate Amino Transferase 11 U/L (0-40); Blood Urea Nitrogen 38 mg/dL (8-23); Calcium 9.1 mg/dL (8.5-10.5); Carbon Dioxide 33 mmol/L (22-29); Chloride 97 mmol/L (98-107); Globulin 2.6 g/dL (1.3-4.6); Glucose 126 mg/dL (65-115); Osmolality Calculated 295 mOsm/kg (285-295); Potassium 4.2 mmol/L (3.5-5.1); Sodium 137 mmol/L (136-145); Total Bilirubin 0.6 mg/dL (0.15-1.2); Total Protein 6.6 g/dL (6.6-8.7)
[2019-12-20 10:51] LABS: Slide Review Slide Review Perform
[2019-12-20 11:03] LABS: Absolute Segmented Neutrophil 1.5 10/cmm (1.6-7.1); Band Neutrophils Absolute 0.1 10^3/cmm (0.0-1.2); Eosinophils 4 %; Lymphocytes 11 %; Lymphocytes Absolute 0.2 10^3/cmm (1.2-3.4); Monocytes Absolute 0.1 10^3/cmm (0.1-0.6); Segmented Neutrophils 73 %; Total Cells Counted 100 (0-100)
[2019-12-20 11:04] LABS: Absolute Neutrophil 1.5 10^3/cmm (1.4-6.5); Platelet Estimate Decreased (Normal)
[2019-12-23 10:13] LABS: Basophils % 0.4 %; Hematocrit 37.3 % (42.0-52.0); Hemoglobin 12.1 g/dL (11.7-16.6); Lymphocytes # 0.1 10^3/uL (0.8-4.8); Lymphocytes % 4.4 %; Mean Corpuscular HGB Conc 32.4 g/dL (30.0-36.0); Mean Corpuscular Hemoglobin 28.7 pg (28.0-34.0); Mean Corpuscular Volume 88.4 fL (80-94); Mean Platelet Volume 10.4 fL (7.4-10.4); Monocytes # 0.1 10^3/uL (0.2-0.9); Monocytes % 4.4 %; Neutrophils # 2.19 10^3/uL (1.8-7.7); Neutrophils % 80.8 %; Nucleated Red Blood Cells % 0 %; Platelet Count 121 10^3/cmm (130-400); Red Blood Count 4.22 10^6/uL (4.1-5.3); Red Cell Distribution Width 13.2 % (12.1-15.1); White Blood Count 2.7 10^3/uL (4.0-10.0)
[2019-12-23] MEDS: sodium chloride 0.9% 250 ML 75 ML IV (11:10)
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
--- NOTE | 2019-12-26 09:07 | ONCRAD TMN_ITS ---
Radiation Oncology Weekly Treatment Management Patient: Shyam Hurt MR#: [id number] : 1945 Age: 74 Sex: Male Dictated by: Dr. 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 Tumor burden involves right upper lobe of lung, mediastinum, right supraclavicular region up to level 4 in the right neck, and a ???possible??? subcentimeter lesion in the wall of the right lateral ventricle. SRS for this lesion was considered at [facility], yet they elected careful observation rather than proceeding with SRS treatment. Planned treatment: Concurrent chemoradiation therapy to an aggregate dose of 60 Gy/30 fractions concurrent with weekly carbotaxol. Radiotherapy to date: Course: Neck R Lung 2019, Treatment Site: RT Lung 60Gy, Ref. ID: [id number], Energy: 6X, Dose/Fx (cGy): 200, #Fx: / 30, Dose Correction (cGy): 0, Total Dose (cGy): 4,600, Start Date: 11/20/2019, Elapsed Days: 34 Reason for visit: The patient is being seen today as part of their regularly scheduled weekly on treatment visits to assess for acute toxicities from radiotherapy. Interim History: The patient reports significant odynophagia, and pain medication was requested. Current Medications: Ambien, amLODIPine Besylate, aspirin, cARBOplatin, carvedilol, chlorthalidone, dexamethasone, dexamethasone Sodium Phosphate, diphenhydrAMINE HCl, escitalopram Oxalate, famotidine in NaCl, lisinopril, loratadine, mouthwash Compounding Base, neupogen, nyQuil HBP Cold & Flu, omeprazole, pACLitaxel, palonosetron HCl, prochlorperazine Maleate, simvastatin, tylenol PM Extra Strength. Allergies: No Known Allergies Vital Signs: Performed on 12/24/2019 2:27 PM BMI - 30.434 kg/m2 (high), Height - 72.00 in, Weight - 224.4 lbs, Temperature - 97.2 f, Pulse - 71, Respiration - 18, O2 Sat - 97 %, Pain - 0 and BP - 127/ 69 mm(hg). Physical Exam: Lungs are clear to auscultation bilaterally Performance Status: 1 - No physically strenuous activity, but ambulatory and able to carry out light or sedentary work (e.g. office work, light house work). (ECOG) Lab: None pending in Radiation Oncology. Imaging: Radiation therapy imaging related to accurate target localization (i.e. KV, MV and CBCT) was reviewed. Appropriate changes, if any, were made to ensure treatment accuracy. Plan: The patient is tolerating therapy reasonably well. Radiotherapy will continue as planned. Extended release morphine, 15 mg twice daily was prescribed along with instructions to coadministered with MiraLAX. CPT: 20672 Signed by: Dr. Chaitanya Mcdaniel 12/26/2019 9:06:54 AM
== END 2019-12-25 23:59 | disposition home or self-care (01) ==
LOC: ONCMED 05:36
PROVIDERS: Nurse Practitioner; Absent Provider Radiology Radiation Oncology; PCP Family Medicine; Visit Provider Internal Medicine Hematology & Oncology
DX: Z51.0 Encounter for antineoplastic radiation therapy (principal); Z51.11 Encounter for antineoplastic chemotherapy; C34.11 Malignant neoplasm of upper lobe, right bronchus or lung; C77.0 Secondary and unspecified malignant neoplasm of lymph nodes of head, face and neck; C79.31 Secondary malignant neoplasm of brain; J44.9 Chronic obstructive pulmonary disease, unspecified; I10 Essential (primary) hypertension; N18.9 Chronic kidney disease, unspecified
CPT/HCPCS: 36415; 77336; 77386; 80053; 85007; 85025; 96367; 96372; 96413; 96417; 99214; J1100; J1200; J1442; J2469; J3490; J7030; J7050; J9045; J9267

== ENCOUNTER 2020-01-20 05:32 | Outpatient (RCR) | payer MEDICARE, BC, SELFPAY ==
[2019-12-30 09:39] LABS: Hematocrit 36.3 % (42.0-52.0); Hemoglobin 11.5 g/dL (11.7-16.6); Mean Corpuscular HGB Conc 31.7 g/dL (30.0-36.0); Mean Corpuscular Volume 91.7 fL (80-94); Mean Platelet Volume 11.1 fL (7.4-10.4); Platelet Count 160 10^3/cmm (130-400); Red Blood Count 3.96 10^6/uL (4.1-5.3); Red Cell Distribution Width 13.9 % (12.1-15.1); White Blood Count 3.7 10^3/uL (4.0-10.0)
[2019-12-30 10:02] LABS: Alanine Aminotransferase 19 U/L (0-41); Alkaline Phosphatase 73 IU/L (40-130); Anion Gap 13.3 (5-19); Aspartate Amino Transferase 12 U/L (0-40); Blood Urea Nitrogen 27 mg/dL (8-23); Calcium 8.9 mg/dL (8.5-10.5); Carbon Dioxide 29 mmol/L (22-29); Chloride 99 mmol/L (98-107); Globulin 2.3 g/dL (1.3-4.6); Glucose 186 mg/dL (65-115); Osmolality Calculated 294 mOsm/kg (285-295); Potassium 4.3 mmol/L (3.5-5.1); Sodium 137 mmol/L (136-145); Total Bilirubin 0.3 mg/dL (0.15-1.2); Total Protein 6.3 g/dL (6.6-8.7)
[2019-12-30 10:15] LABS: Slide Review Slide Review Perform
[2019-12-30 10:21] LABS: Absolute Neutrophil 2.1 10^3/cmm (1.4-6.5); Absolute Segmented Neutrophil 1.4 10/cmm (1.6-7.1); Band Neutrophils Absolute 0.7 10^3/cmm (0.0-1.2); Corrected White Blood Count 3.5 10^3/cmm (4.8-10.8); Eosinophils 1 %; Lymphocytes 8 %; Lymphocytes Absolute 0.3 10^3/cmm (1.2-3.4); Monocytes Absolute 0.4 10^3/cmm (0.1-0.6); Platelet Estimate Normal (Normal); Segmented Neutrophils 39 %; Total Cells Counted 100 (0-100)
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
[2019-12-31] MEDS: sodium chloride 0.9% 250 ML 75 ML IV (11:40)
--- NOTE | 2020-01-02 07:46 | ONCRAD TMN_ITS ---
Radiation Oncology Weekly Treatment Management Patient: Blu Howe MR#: [id number] : 1945 Age: 74 Sex: Male Dictated by: Dr. 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 Tumor burden involves right upper lobe of lung, mediastinum, right supraclavicular region up to level 4 in the right neck, and a ???possible??? subcentimeter lesion in the wall of the right lateral ventricle. SRS for this lesion was considered at [place], yet they elected careful observation rather than proceeding with SRS treatment. Planned treatment: Concurrent chemoradiation therapy to an aggregate dose of 60 Gy/30 fractions concurrent with weekly carbotaxol. Radiotherapy to date: Course: Neck R Lung 2019, Treatment Site: RT Lung 60Gy, Ref. ID: [id number], Energy: 6X, Dose/Fx (cGy): 200, #Fx: 28 / 30, Dose Correction (cGy): 0, Total Dose (cGy): 5,600, Start Date: 11/20/2019, Elapsed Days: 41 Reason for visit: The patient is being seen today as part of their regularly scheduled weekly on treatment visits to assess for acute toxicities from radiotherapy. Interim History: The patient reports skin irritation in his right anterior chest wall. Instructions to begin [place] soaks therapy were given. Current Medications: Ambien, amLODIPine Besylate, aspirin, cARBOplatin, carvedilol, chlorthalidone, dexamethasone, dexamethasone Sodium Phosphate, diphenhydrAMINE HCl, escitalopram Oxalate, famotidine in NaCl, lisinopril, loratadine, morphine Sulfate ER, mouthwash Compounding Base, nyQuil HBP Cold & Flu, omeprazole, pACLitaxel, palonosetron HCl, prochlorperazine Maleate, simvastatin, tylenol PM Extra Strength. Allergies: No Known Allergies Current Complaints/Review of Systems: Constitutional - Complains of moderate fatigue. Denies lack of appetite, fever and night sweats. ENMT - Complains of dysphagia. Integumentary - Has desquamtion to the upper right chest wall. Cardiovascular - Denies chest pain. Respiratory - Complains of a mild cough which is non-productive. Complains of dyspnea associated with normal activity. Complains of mild wheezing occasionally. Vital Signs: Performed on 12/31/2019 9:46 AM BMI - 30.163 kg/m2 (high), Height - 72.00 in, Weight - 222.4 lbs, Temperature - 97.4 f, Pulse - 76, Respiration - 20, O2 Sat - 97 %, Pain - 0 and BP - 116/ 71 mm(hg). Physical Exam: Dry desquamation is present within the treatment field. Lungs are clear to auscultation. Performance Status: 1 - No physically strenuous activity, but ambulatory and able to carry out light or sedentary work (e.g. office work, light house work). (ECOG) Lab: None pending in Radiation Oncology. Test performed on 12/09/2019 9:30 AM Osmolality - Calculated - 279 mosm/kg (low), Test performed on 12/13/2019 10:37 AM WBC - 2.2 10^9/l (low), MCHC - 31.3 g/dl (low), Platelet Count - 100 10^9/l (low), Neutrophils (Gran) - 1.79 10^9/l (low), Lymphocytes - 0.2 10^9/l (low) and Test performed on 12/31/2019 8:31 AM Cr Clearance (Est) - 48.88 ml/min (low). Imaging: Radiation therapy imaging related to accurate target localization (i.e. KV, MV and CBCT) was reviewed. Appropriate changes, if any, were made to ensure treatment accuracy. Plan: The patient is tolerating therapy reasonably well. Radiotherapy will continue as planned. CPT: 06116 Signed by: Dr. Chaitanya Mcdaniel 01/02/2020 7:44:46 AM
[2020-01-16 09:29] LABS: Basophils # 0.1 10^3/uL (0.0-0.1); Basophils % 1.1 %; Eosinophils # 0.1 10^3/uL (0.0-0.8); Eosinophils % 2.5 %; Hematocrit 32.5 % (42.0-52.0); Hemoglobin 10.3 g/dL (11.7-16.6); Lymphocytes # 0.3 10^3/uL (0.8-4.8); Lymphocytes % 5.1 %; Mean Corpuscular HGB Conc 31.7 g/dL (30.0-36.0); Mean Corpuscular Hemoglobin 29.2 pg (28.0-34.0); Mean Corpuscular Volume 92.1 fL (80-94); Mean Platelet Volume 9.9 fL (7.4-10.4); Monocytes # 0.8 10^3/uL (0.2-0.9); Monocytes % 14.4 %; Neutrophils # 4.02 10^3/uL (1.8-7.7); Nucleated Red Blood Cells % 0 %; Platelet Count 185 10^3/cmm (130-400); Red Blood Count 3.53 10^6/uL (4.1-5.3); Red Cell Distribution Width 16.3 % (12.1-15.1); White Blood Count 5.3 10^3/uL (4.0-10.0)
[2020-01-16 09:50] LABS: Alanine Aminotransferase 17 U/L (0-41); Albumin Level 3.8 g/dL (3.5-5.2); Alkaline Phosphatase 74 IU/L (40-130); Anion Gap 17.2 (5-19); Aspartate Amino Transferase 13 U/L (0-40); Blood Urea Nitrogen 25 mg/dL (8-23); Calcium 9.7 mg/dL (8.5-10.5); Carbon Dioxide 28 mmol/L (22-29); Chloride 96 mmol/L (98-107); Globulin 2.9 g/dL (1.3-4.6); Glucose 169 mg/dL (65-115); Osmolality Calculated 292 mOsm/kg (285-295); Potassium 4.2 mmol/L (3.5-5.1); Sodium 137 mmol/L (136-145); Total Bilirubin 0.5 mg/dL (0.15-1.2); Total Protein 6.7 g/dL (6.6-8.7)
[2020-01-20] MEDS: sodium chloride 0.9% 500 ML IV (13:45)
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
== END 2020-01-25 23:59 | disposition home or self-care (01) ==
LOC: ONCMED 05:32
PROVIDERS: Absent Provider Radiology Radiation Oncology; PCP Family Medicine; Visit Provider Internal Medicine Hematology & Oncology
DX: Z51.0 Encounter for antineoplastic radiation therapy (principal); Z51.11 Encounter for antineoplastic chemotherapy; C34.11 Malignant neoplasm of upper lobe, right bronchus or lung; C79.31 Secondary malignant neoplasm of brain; C77.0 Secondary and unspecified malignant neoplasm of lymph nodes of head, face and neck; D70.1 Agranulocytosis secondary to cancer chemotherapy; T45.1X5A Adverse effect of antineoplastic and immunosuppressive drugs, initial encounter; G89.29 Other chronic pain; M54.5 Low back pain; I10 Essential (primary) hypertension; I73.9 Peripheral vascular disease, unspecified; J44.9 Chronic obstructive pulmonary disease, unspecified; I25.10 Atherosclerotic heart disease of native coronary artery without angina pectoris; N18.9 Chronic kidney disease, unspecified; I12.9 Hypertensive chronic kidney disease with stage 1 through stage 4 chronic kidney disease, or unspecified chronic kidney disease; Z79.82 Long term (current) use of aspirin
CPT/HCPCS: 36415; 36591; 77336; 77386; 80053; 85007; 85025; 96360; 96367; 96372; 96413; 96417; 99214; J1100; J1200; J1442; J2469; J3490; J7030; J7040; J7050; J9045; J9267

== ENCOUNTER 2020-02-06 08:07 | Outpatient (CLI) | payer MEDICARE, BC, SELFPAY ==
--- NOTE | 2020-02-06 08:31 | CT_ITS ---
WS: [id number] CT scan of the chest with IV contrast, additional two-dimensional coronal and sagittal reconstruction was performed. 02/06/2020 Clinical Data: LUNG CANCER Comparison: CT chest, 10/03/2019. DLP: 970.[address] scans at [facility] use at least one of these dose optimization techniques: automat ed exposure control; mA and/or kV adjustment per patient size (includes targeted exams where dose is matched to clinical indication); or iterative reconstruction. Findings: There is a peripheral right upper lobe spiculated mass in the posterior lateral aspect measuring 1.77 x 1.82 cm. There is pleural thickening adjacent to this mass. This mass is much smaller when compare d to the prior scan and probably represents a residual scar following treatment. No nodules or effusions are seen. No pneumonia or pneumothorax is present. The heart size is normal w ith a small pericardial effusion. The pulmonary arterial system and thoracic aorta demonstrate no dil atation. There is minimal calcification in the wall of the thoracic aorta. There is no axillary or si gnificant mediastinal adenopathy. There are calcified subcarinal lymph nodes. There is a small hiatal hernia. 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 The upper abdomen demonstrates no abnormalities. CT/CT chest w con* [id number] Impression: 1. Spiculated mass in the posterior-lateral aspect of right upper lobe which pr obably represents a residual scar from treatment of the patient's lung cancer. 2. Small pericardial effusion.
[2020-02-06 09:06] LABS: Blood Urea Nitrogen 12 mg/dL (8-23)
[2020-02-06] MEDS: iohexol 300 mg/mL 100 mL Btl IV (09:15)
== END 2020-02-06 08:08 | disposition home or self-care (01) ==
LOC: RADWPI 08:12
PROVIDERS: PCP Family Medicine; Visit Provider Radiology Radiation Oncology
DX: C34.11 Malignant neoplasm of upper lobe, right bronchus or lung (principal); I31.3 Pericardial effusion (noninflammatory)
CPT/HCPCS: 71260; 82565; 84520; Q9967

== ENCOUNTER 2020-02-19 05:47 | Outpatient (RCR) | payer MEDICARE, BC, SELFPAY ==
--- NOTE | 2020-02-07 11:41 | ONCRAD EPV_ITS ---
Radiation Oncology Established Patient Note Patient: Blu Howe MR#: [id number] : 1945> Attending Physician: Dr. Fredis Wheeler Date of Service: 02/07/2020 Blu Howe returned to my office this morning for a routinely scheduled follow-up appointment. He completed thoracic radiotherapy in December for the management of his non-small cell lung cancer. Daily radiotherapy was administered between the dates of November 20, 2019 through January 02, 2020. ???A prescribed dose of 60 Gy was delivered in 30 fractions encompassing 4 elapsed days. On review of systems, the patient denied any constitutional complaints including unintentional weight loss or fevers of unknown origin. He did not report any pulmonary complaints except for an intermittent cough. He disavowed any neurological symptoms. On physical examination, the patient weighed 218 pounds. The temperature is 98.7 ???F. The blood pressure was 114/70 mmHg. The pulse was 89 bpm and respiratory rate was 16 breaths per minute. Oxygen saturation was 96% on room air. Skin of the anterior chest wall demonstrated mild erythema with hyperpigmentation present. Auscultation of the posterior lung singer revealed bronchial breath sounds. In summary, the patient returned for a routine post radiotherapy follow-up. He will continue follow-up with Dr. Luis M Davies. Signed by: Dr. Fredis Wheeler 02/07/2020 11:40:05 AM
[2020-02-11 08:57] LABS: Basophils % 0.9 %; Eosinophils # 0.2 10^3/uL (0.0-0.8); Eosinophils % 8.5 %; Hematocrit 34.6 % (42.0-52.0); Hemoglobin 10.8 g/dL (11.7-16.6); Lymphocytes # 0.4 10^3/uL (0.8-4.8); Lymphocytes % 14.9 %; Mean Corpuscular HGB Conc 31.2 g/dL (30.0-36.0); Mean Corpuscular Hemoglobin 30.2 pg (28.0-34.0); Mean Corpuscular Volume 96.6 fL (80-94); Mean Platelet Volume 9.9 fL (7.4-10.4); Monocytes # 0.3 10^3/uL (0.2-0.9); Monocytes % 14.5 %; Neutrophils # 1.43 10^3/uL (1.8-7.7); Neutrophils % 60.8 %; Nucleated Red Blood Cells % 0 %; Platelet Count 142 10^3/cmm (130-400); Red Blood Count 3.58 10^6/uL (4.1-5.3); White Blood Count 2.4 10^3/uL (4.0-10.0)
[2020-02-11 09:18] LABS: Alanine Aminotransferase 23 U/L (0-41); Albumin Level 3.8 g/dL (3.5-5.2); Alkaline Phosphatase 80 IU/L (40-130); Anion Gap 14.7 (5-19); Aspartate Amino Transferase 15 U/L (0-40); Blood Urea Nitrogen 13 mg/dL (8-23); Carbon Dioxide 30 mmol/L (22-29); Chloride 101 mmol/L (98-107); Globulin 2.4 g/dL (1.3-4.6); Glucose 155 mg/dL (65-115); Osmolality Calculated 295 mOsm/kg (285-295); Potassium 4.7 mmol/L (3.5-5.1); Sodium 141 mmol/L (136-145); Total Bilirubin 0.3 mg/dL (0.15-1.2); Total Protein 6.2 g/dL (6.6-8.7)
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
[2020-02-19] MEDS: sodium chloride 0.9% 250 ML 75 ML IV (14:44)
== END 2020-02-24 23:59 | disposition home or self-care (01) ==
LOC: ONCMED 05:47
PROVIDERS: Internal Medicine Hematology & Oncology; Absent Provider Radiology Radiation Oncology; PCP Family Medicine; Visit Provider Internal Medicine Medical Oncology
DX: Z51.12 Encounter for antineoplastic immunotherapy (principal); C34.11 Malignant neoplasm of upper lobe, right bronchus or lung; C77.0 Secondary and unspecified malignant neoplasm of lymph nodes of head, face and neck; C79.31 Secondary malignant neoplasm of brain; J44.9 Chronic obstructive pulmonary disease, unspecified; I10 Essential (primary) hypertension; N18.9 Chronic kidney disease, unspecified; Z79.899 Other long term (current) drug therapy; Z92.21 Personal history of antineoplastic chemotherapy; Z92.3 Personal history of irradiation
CPT/HCPCS: 36415; 80053; 85025; 96413; 99214; J7050; J9173

== ENCOUNTER 2020-03-03 15:42 | Outpatient (CLI) | payer MEDICARE, BC, SELFPAY ==
--- NOTE | 2020-03-03 15:45 | USCV_ITS ---
Blu Howe Age: 74 Gender: M : 1945 Exam Date: 03/03/2020 16:13 Ordering Phys: Luis M Mcallister MD Technologist: WELLINGTON NYE Exam Location: [facility] [place] Indication: LUNG CA BP: / HR: 69 Rhythm: Sinus Technical Quality: Technically difficult study MEASUREMENTS (Male / Female) Normal Values 2D ECHO LV Diastolic Diameter PLAX 5.1 cm 4.2 - 5.9 / 3.9 - 5.3 cm LV Systolic Diameter PLAX 3.3 cm IVS Diastolic Thickness 0.9 cm 0.6 - 1.0 / 0.6 - 0.9 cm IVS Systolic Thickness 2.0 cm LVPW Diastolic Thickness 0.9 cm 0.6 - 1.0 / 0.6 - 0.9 cm LVPW Systolic Thickness 1.7 cm LVOT Diameter 2.0 cm LV Ejection Fraction 2D Teich 65.4 % LV Ejection Fraction MOD 2C 79.5 % LV Ejection Fraction 2C AL 82.0 % LA Diameter 3.4 cm LA Width 2.8 cm LA Height 4.8 cm RA Width 3.3 cm RA Height 4.6 cm M-MODE LV Diastolic Diameter MM 6.7 cm 4.2 - 5.9 / 3.9 - 5.3 cm LV Systolic Diameter MM 5.6 cm LV Ejection Fraction MM Teich 34.8 % IVS Diastolic Thickness MM 0.8 cm 0.6 - 1.0 / 0.6 - 0.9 cm IVS Systolic Thickness MM 0.5 cm LVPW Diastolic Thickness MM 1.1 cm 0.6 - 1.0 / 0.6 - 0.9 cm LVPW Systolic Thickness MM 2.2 cm Aortic Annulus Diameter 3.3 cm LA Ao Ratio MM 1.0 DOPPLER AV Peak Velocity 140.0 cm/s LVOT Peak Velocity 104.0 cm/s AV Area Cont Eq vti 2.6 cm squared AV Area Cont Eq pk 2.4 cm squared MV Peak Velocity 93.0 cm/s MV Area PHT 2.8 cm squared Mitral E to A Ratio 0.9 MV E' Velocity 40.0 cm/s Mitral E to MV E' Ratio 7.5 Mitral E to LV E' Lateral Ratio 7.0 Mitral E to LV E' Septal Ratio 8.1 TR Peak Velocity 86.8 cm/s TR Peak Gradient 3.0 mmHg Right Atrial Pressure 3.0 mmHg Pulmonary Artery Systolic Pressu 6.0 mmHg FINDINGS Left Ventricle Normal left ventricular size and systolic function, EF 74 %. No regional wall motion abnormalities. Grade I/IV diastolic dysfunction (abnormal relaxation filling pattern), normal to mildly elevated filling pressures. Right Ventricle The right ventricle is normal in size and function. Right Atrium The right atrium is normal in size. Left Atrium The left atrium is normal in size. Mitral Valve No gross abnormality noted Aortic Valve Thickened aortic valve. Tricuspid Valve No gross abnormalities noted Pulmonic Valve No gross abnormalities noted Pericardium Normal pericardium without effusion. Aorta Normal aortic annulus size. CONCLUSIONS Normal left ventricular size and systolic function, EF 74 %. No regional wall motion abnormalities. Grade I/IV diastolic dysfunction (abnormal relaxation filling pattern), normal to mildly elevated filling pressures. Thickened aortic valve. No significant stenotic or regurgitant lesions There is no pericardial effusion. There are no intracardiac masses. No previous study is available for comparison. Dr Uriel López MD FAC (Electronically Signed) Final Date: 03 March 2020 21:15 S
== END 2020-03-03 15:43 | disposition home or self-care (01) ==
LOC: RAD 15:56
PROVIDERS: PCP Family Medicine; Visit Provider Internal Medicine Hematology & Oncology
DX: C34.11 Malignant neoplasm of upper lobe, right bronchus or lung (principal); I35.8 Other nonrheumatic aortic valve disorders
CPT/HCPCS: 93306

== ENCOUNTER 2020-03-23 05:18 | Outpatient (RCR) | payer MEDICARE, BC, SELFPAY ==
[2020-02-27 12:48] LABS: Basophils % 0.7 %; Eosinophils # 0.1 10^3/uL (0.0-0.8); Eosinophils % 2.8 %; Hematocrit 36.8 % (42.0-52.0); Hemoglobin 11.6 g/dL (11.7-16.6); Lymphocytes # 0.4 10^3/uL (0.8-4.8); Lymphocytes % 14.1 %; Mean Corpuscular HGB Conc 31.5 g/dL (30.0-36.0); Mean Corpuscular Volume 95.1 fL (80-94); Mean Platelet Volume 10.4 fL (7.4-10.4); Monocytes # 0.6 10^3/uL (0.2-0.9); Monocytes % 21.2 %; Neutrophils # 1.69 10^3/uL (1.8-7.7); Neutrophils % 59.8 %; Nucleated Red Blood Cells % 0 %; Platelet Count 217 10^3/cmm (130-400); Red Blood Count 3.87 10^6/uL (4.1-5.3); Red Cell Distribution Width 16.6 % (12.1-15.1); White Blood Count 2.8 10^3/uL (4.0-10.0)
[2020-02-27 12:55] LABS: Alanine Aminotransferase 18 U/L (0-41); Albumin Level 4.1 g/dL (3.5-5.2); Alkaline Phosphatase 82 IU/L (40-130); Anion Gap 11.9 (5-19); Aspartate Amino Transferase 17 U/L (0-40); Blood Urea Nitrogen 15 mg/dL (8-23); Calcium 9.4 mg/dL (8.5-10.5); Carbon Dioxide 31 mmol/L (22-29); Chloride 101 mmol/L (98-107); Globulin 2.6 g/dL (1.3-4.6); Glucose 105 mg/dL (65-115); Osmolality Calculated 289 mOsm/kg (285-295); Potassium 4.9 mmol/L (3.5-5.1); Sodium 139 mmol/L (136-145); Total Bilirubin 0.5 mg/dL (0.15-1.2); Total Protein 6.7 g/dL (6.6-8.7)
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
[2020-03-03 15:58] LABS: Basophils % 0.6 %; Eosinophils # 0.1 10^3/uL (0.0-0.8); Eosinophils % 1.6 %; Lymphocytes # 0.4 10^3/uL (0.8-4.8); Lymphocytes % 12.1 %; Mean Corpuscular HGB Conc 31.6 g/dL (30.0-36.0); Mean Corpuscular Hemoglobin 29.8 pg (28.0-34.0); Mean Corpuscular Volume 94.3 fL (80-94); Mean Platelet Volume 10.1 fL (7.4-10.4); Monocytes # 0.7 10^3/uL (0.2-0.9); Neutrophils # 1.99 10^3/uL (1.8-7.7); Neutrophils % 61.8 %; Nucleated Red Blood Cells % 0 %; Platelet Count 172 10^3/cmm (130-400); Red Blood Count 4.03 10^6/uL (4.1-5.3); Red Cell Distribution Width 15.9 % (12.1-15.1); White Blood Count 3.2 10^3/uL (4.0-10.0)
[2020-03-03 16:20] LABS: Alanine Aminotransferase 17 U/L (0-41); Albumin Level 4.2 g/dL (3.5-5.2); Alkaline Phosphatase 76 IU/L (40-130); Anion Gap 13.5 (5-19); Aspartate Amino Transferase 19 U/L (0-40); Blood Urea Nitrogen 17 mg/dL (8-23); Calcium 9.5 mg/dL (8.5-10.5); Carbon Dioxide 32 mmol/L (22-29); Chloride 100 mmol/L (98-107); Globulin 2.8 g/dL (1.3-4.6); Glucose 102 mg/dL (65-115); Osmolality Calculated 294 mOsm/kg (285-295); Potassium 4.5 mmol/L (3.5-5.1); Sodium 141 mmol/L (136-145); Total Bilirubin 0.5 mg/dL (0.15-1.2)
[2020-03-04 16:09] LABS: Thyroid Stimulating Hormone 3.18 uIU/mL (0.27-4.20)
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
[2020-03-17 15:17] LABS: Eosinophils # 0.1 10^3/uL (0.0-0.8); Eosinophils % 3.1 %; Hematocrit 39.7 % (42.0-52.0); Hemoglobin 12.4 g/dL (11.7-16.6); Lymphocytes # 0.7 10^3/uL (0.8-4.8); Lymphocytes % 15.6 %; Mean Corpuscular HGB Conc 31.2 g/dL (30.0-36.0); Mean Corpuscular Hemoglobin 30.2 pg (28.0-34.0); Mean Corpuscular Volume 96.6 fL (80-94); Mean Platelet Volume 10.2 fL (7.4-10.4); Monocytes # 0.7 10^3/uL (0.2-0.9); Monocytes % 16.1 %; Neutrophils # 2.66 10^3/uL (1.8-7.7); Neutrophils % 63.7 %; Nucleated Red Blood Cells % 0 %; Platelet Count 212 10^3/cmm (130-400); Red Blood Count 4.11 10^6/uL (4.1-5.3); Red Cell Distribution Width 14.7 % (12.1-15.1); White Blood Count 4.2 10^3/uL (4.0-10.0)
[2020-03-17 15:57] LABS: Alanine Aminotransferase 54 U/L (0-41); Albumin Level 4.3 g/dL (3.5-5.2); Alkaline Phosphatase 85 IU/L (40-130); Anion Gap 13.3 (5-19); Aspartate Amino Transferase 47 U/L (0-40); Blood Urea Nitrogen 13 mg/dL (8-23); Calcium 9.5 mg/dL (8.5-10.5); Carbon Dioxide 30 mmol/L (22-29); Chloride 98 mmol/L (98-107); Globulin 2.6 g/dL (1.3-4.6); Glucose 94 mg/dL (65-115); Osmolality Calculated 284 mOsm/kg (285-295); Potassium 4.3 mmol/L (3.5-5.1); Sodium 137 mmol/L (136-145); Thyroid Stimulating Hormone 2.75 uIU/mL (0.27-4.20); Total Bilirubin 0.8 mg/dL (0.15-1.2); Total Protein 6.9 g/dL (6.6-8.7)
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
[2020-03-23 09:08] LABS: Basophils % 0.4 %; Eosinophils # 0.1 10^3/uL (0.0-0.8); Eosinophils % 1.2 %; Hematocrit 40.5 % (42.0-52.0); Hemoglobin 12.6 g/dL (11.7-16.6); Lymphocytes # 0.6 10^3/uL (0.8-4.8); Lymphocytes % 11.4 %; Mean Corpuscular HGB Conc 31.1 g/dL (30.0-36.0); Mean Corpuscular Hemoglobin 29.9 pg (28.0-34.0); Monocytes # 0.8 10^3/uL (0.2-0.9); Monocytes % 17.1 %; Neutrophils # 3.37 10^3/uL (1.8-7.7); Neutrophils % 68.9 %; Nucleated Red Blood Cells % 0 %; Platelet Count 252 10^3/cmm (130-400); Red Blood Count 4.22 10^6/uL (4.1-5.3); White Blood Count 4.9 10^3/uL (4.0-10.0)
[2020-03-23 09:43] LABS: Alanine Aminotransferase 39 U/L (0-41); Albumin Level 4.2 g/dL (3.5-5.2); Alkaline Phosphatase 73 IU/L (40-130); Anion Gap 14.2 (5-19); Aspartate Amino Transferase 20 U/L (0-40); Blood Urea Nitrogen 24 mg/dL (8-23); Carbon Dioxide 31 mmol/L (22-29); Chloride 100 mmol/L (98-107); Globulin 2.4 g/dL (1.3-4.6); Glucose 160 mg/dL (65-115); Osmolality Calculated 299 mOsm/kg (285-295); Potassium 4.2 mmol/L (3.5-5.1); Sodium 141 mmol/L (136-145); Total Bilirubin 0.3 mg/dL (0.15-1.2); Total Protein 6.6 g/dL (6.6-8.7)
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
== END 2020-03-26 23:59 | disposition home or self-care (01) ==
LOC: ONCMED 05:18
PROVIDERS: Nurse Practitioner; Absent Provider Radiology Radiation Oncology; PCP Family Medicine; Visit Provider Internal Medicine Hematology & Oncology
DX: Z51.12 Encounter for antineoplastic immunotherapy (principal); C34.11 Malignant neoplasm of upper lobe, right bronchus or lung; C79.31 Secondary malignant neoplasm of brain; J90 Pleural effusion, not elsewhere classified; D70.1 Agranulocytosis secondary to cancer chemotherapy; D64.81 Anemia due to antineoplastic chemotherapy; T45.1X5A Adverse effect of antineoplastic and immunosuppressive drugs, initial encounter; J44.9 Chronic obstructive pulmonary disease, unspecified; I10 Essential (primary) hypertension; I12.9 Hypertensive chronic kidney disease with stage 1 through stage 4 chronic kidney disease, or unspecified chronic kidney disease; N18.9 Chronic kidney disease, unspecified; Z79.52 Long term (current) use of systemic steroids; Z79.899 Other long term (current) drug therapy; Z87.891 Personal history of nicotine dependence; I35.8 Other nonrheumatic aortic valve disorders
CPT/HCPCS: 36415; 36591; 80053; 84443; 85025; 93306; 96413; 99214; J7050; J9173

== ENCOUNTER 2020-04-06 08:56 | Outpatient (RCR) | payer MEDICARE, BC, SELFPAY ==
[2020-04-06 09:19] LABS: Basophils % 0.5 %; Eosinophils # 0.2 10^3/uL (0.0-0.8); Eosinophils % 4.8 %; Hematocrit 41.1 % (42.0-52.0); Lymphocytes # 0.6 10^3/uL (0.8-4.8); Lymphocytes % 12.5 %; Mean Corpuscular HGB Conc 31.6 g/dL (30.0-36.0); Mean Corpuscular Hemoglobin 29.1 pg (28.0-34.0); Mean Corpuscular Volume 91.9 fL (80-94); Mean Platelet Volume 9.9 fL (7.4-10.4); Monocytes # 0.7 10^3/uL (0.2-0.9); Monocytes % 15.5 %; Neutrophils # 2.92 10^3/uL (1.8-7.7); Neutrophils % 66.2 %; Nucleated Red Blood Cells % 0 %; Platelet Count 200 10^3/cmm (130-400); Red Blood Count 4.47 10^6/uL (4.1-5.3); Red Cell Distribution Width 12.9 % (12.1-15.1); White Blood Count 4.4 10^3/uL (4.0-10.0)
[2020-04-06 09:53] LABS: Alanine Aminotransferase 17 U/L (0-41); Albumin Level 3.9 g/dL (3.5-5.2); Alkaline Phosphatase 90 IU/L (40-130); Anion Gap 14.2 (5-19); Aspartate Amino Transferase 17 U/L (0-40); Blood Urea Nitrogen 11 mg/dL (8-23); Carbon Dioxide 30 mmol/L (22-29); Chloride 98 mmol/L (98-107); Globulin 2.6 g/dL (1.3-4.6); Glucose 128 mg/dL (65-115); Osmolality Calculated 287 mOsm/kg (285-295); Potassium 4.2 mmol/L (3.5-5.1); Sodium 138 mmol/L (136-145); Thyroid Stimulating Hormone 4.09 uIU/mL (0.27-4.20); Total Bilirubin 0.3 mg/dL (0.15-1.2); Total Protein 6.5 g/dL (6.6-8.7)
[2020-04-06 14:02] LABS: Testosterone Total 399.5 ng/dL (193-740)
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
== END 2020-04-07 13:00 | disposition home or self-care (01) ==
LOC: ONCMED 08:56
PROVIDERS: Nurse Practitioner; Absent Provider Radiology Radiation Oncology; PCP Family Medicine; Visit Provider Internal Medicine Hematology & Oncology
DX: Z51.12 Encounter for antineoplastic immunotherapy (principal); C34.11 Malignant neoplasm of upper lobe, right bronchus or lung; C77.0 Secondary and unspecified malignant neoplasm of lymph nodes of head, face and neck; C79.31 Secondary malignant neoplasm of brain; E03.9 Hypothyroidism, unspecified; J44.9 Chronic obstructive pulmonary disease, unspecified; I12.9 Hypertensive chronic kidney disease with stage 1 through stage 4 chronic kidney disease, or unspecified chronic kidney disease; N18.9 Chronic kidney disease, unspecified; Z79.899 Other long term (current) drug therapy
CPT/HCPCS: 80053; 84403; 84443; 85025; 96413; 99205; J7050; J9173

== ENCOUNTER 2020-04-07 13:41 | Outpatient (CLI) | payer OTHER, SELFPAY ==
[2020-04-07 13:22] LABS: SARS Covid-2 Antigen Negative (Negative)
--- NOTE | 2020-04-07 14:44 | XRR_ITS ---
PROCEDURE INFORMATION: Exam: XR Chest, 2 Views Exam date and time: 04/07/2020 2:49 PM Age: 74 years old Clinical indication: Shortness of breath; Chest pain; Type not specified TECHNIQUE: Imaging protocol: XR of the chest Views: 2 views. COMPARISON: CT chest w con* [id number] 02/06/2020 9:09 AM FINDINGS: Tubes, catheters and devices: Right central venous catheter tip in the superior vena cava. Lungs: Right mid and lower lung opacity. Pleural space: No pleural effusion. Heart/Mediastinum: Unremarkable. No cardiomegaly. Diaphragm: Minimal the elevation of the right hemidiaphragm. Bones/joints: No acute findings. XR/XR chest 2V* [id number] IMPRESSION: Right lung atelectasis versus pneumonia.
--- NOTE | 2020-04-07 14:51 | PFTS_ITS ---
Date of Study:04/07/20 Date of Dictation: MECHANICS: Forced vital capacity (FVC) is reduced. Forced expiratory volume in one second (FEV1) is reduced. FEV1/FVC is reduced. FLOW VOLUME LOOP: Reduced flow at all lung volumes with significant scooping. LUNG VOLUMES: Not measured DIFFUSING CAPACITY FOR CARBON MONOXIDE: Not measured. INTERPRETATION: The postbronchodilator spirometry is consistent with severe airflow obstruction. A component of restrictive lung disease cannot be ruled out in the absence of lung volume measurement. MTDD
== END 2020-04-07 13:42 | disposition home or self-care (01) ==
PROVIDERS: PCP Family Medicine; Visit Provider Orthopaedic Surgery
DX: R06.02 Shortness of breath (principal)
CPT/HCPCS: 71046; 87426; 94060; J7611

== ENCOUNTER 2020-04-07 14:33 | Outpatient (CLI) | payer MEDICARE, BC, SELFPAY ==
--- NOTE | 2020-04-07 16:00 | CT_ITS ---
WS: [id number] CT CHEST TECHNIQUE: Noncontrast CT of the chest with coronal and sagittal reformatted images. CLINICAL INFORMATION: lung mass COMPARISON: CT 02/06/2020 and 10/03/2019 DLP: 944.[address] scans at [facility] use at least one of these dose optimization techniques: automat ed exposure control; mA and/or kV adjustment per patient size (includes targeted exams where dose is matched to clinical indication); or iterative reconstruction. FINDINGS: Moderate right pleural effusion has increased from February 06, 2020. Spiculated nodule in the right upper lobe appears slightly more prominent today compared to previous. Today this measures 2.1 x 2.1 x 1.7 cm. Previously this measured 1.8 x 1.8 x 1.7 cm. Interstitial thickening in the right upper lob e is new from the previous examination and likely due to radiation pneumonitis. Lymphangitic metastas is is an additional less likely consideration Pleural thickening along the adjacent fissure. Left lung is well aerated. Calcified granuloma left lower lobe. Small pericardial effusion. Aortic ca lcification. Coronary calcification. Normal thyroid gland. No mediastinal or hilar lymphadenopathy. Adrenal glands are normal. CT/CT chest wo con [id number] IMPRESSION: 1. Spiculated nodule right upper lobe along the fissure has progressed slightl y since the prior examination today measuring 2.1 x 2.1 x 1.7 cm. Findings susp icious for interval progression of disease.. Recommend short interval follow-up or further evaluation with PET/CT. 2. Moderate right pleural effusion is new from February 06, 2020. 3. Interstitial infiltrates within the right upper lobe and right lower lobe l ikely due to radiation pneumonitis. Lymphangitic metastasis is an additional bu t less likely consideration. 4. Small pericardial effusion. 5. No mediastinal or hilar lymphadenopathy. 6. No other significant changes from previous.
== END 2020-04-07 14:34 | disposition home or self-care (01) ==
LOC: RAD 14:35
PROVIDERS: PCP Family Medicine; Visit Provider Internal Medicine Pulmonary Disease
DX: R91.8 Other nonspecific abnormal finding of lung field (principal); I31.3 Pericardial effusion (noninflammatory); J90 Pleural effusion, not elsewhere classified
CPT/HCPCS: 71250

== ENCOUNTER 2020-04-14 05:50 | Day surgery (SDC) | payer MEDICARE, BC, SELFPAY ==
[2020-04-13 15:22] VITALS: BMI 4393.8
[2020-04-14] VITALS (11 sets, daily range): BP systolic 99–145; BP diastolic 36–76; PULSE 70–79; RESP 16–18; TEMP 36.2–36.5; O2SAT 84–98
[2020-04-14] MEDS: sodium chloride 0.9% 1,000 ML 30 ML IV (06:25)
--- NOTE | 2020-04-14 06:31 | SC_ITS ---
WS: [id number] C-ARM RADIOGRAPHS CHEST; 12 IMAGES HISTORY: surgery COMPARISON: None available. Intraoperative imaging during bronchoscopy. SC/C-arm FL for Bronchoscopy IMPRESSION: Intraoperative image guidance for bronchoscopy.
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
[2020-04-14] MEDS: EPINEPHrine 1 mg/mL INJ XX (08:15)
--- NOTE | 2020-04-14 08:33 | SUR.OPER ---
0807 see OM for lab orders done in OR
--- NOTE | 2020-04-14 08:52 | XR_ITS ---
WS: [id number] PORTABLE CHEST HISTORY: POST thoracentesis AND TRANSBRONCHIAL BIOPSY ON RIGHT LUNG COMPARISON: 04/07/2020 Small bore chest tube at the RIGHT lung base. There may be a very small pneumothorax in the subpulmon ic location on the RIGHT. Since the transbronchial biopsy there is been increase in the amount of interstitial thickening and o pacification in the central RIGHT lung. Probably due to some hemorrhage and post biopsy changes. No l obar collapse. Cardiac size: Normal. Mediastinum/Aorta: Mild atherosclerosis aorta. No osseous abnormality seen. Port-A-Cath present with tip in the distal SVC. XR/XR chest 1V portable [id number] IMPRESSION: 1. Small bore chest tube at the RIGHT lower thorax and suspicious for small molina bpulmonic pneumothorax. Discussed with Dr. Bettencourt. 2. Increasing opacification and interstitial thickening in the central RIGHT yuly ng is likely post biopsy changes of bleeding and some edema. No lobar collapse.
--- NOTE | 2020-04-14 08:54 | PM.OP ---
Operative Report Date of procedure: April 14, 2020 Procedure: BRONCHOSCOPY with BAL and transbronchial biopsy Pre-Operative Diagnosis: Metastatic lung cancer with possible malignant pleural effusion; suspected lymphangitic spread versus immunotherapy related interstitial lung disease Post-Operative Diagnosis: Same Indication: CT chest showing increasing size of previous right lung mass and new interstitial changes Anesthesia: Managed by anesthesia; please refer to anesthesia note Pre-procedure Evaluation: Patient was evaluated clinically and ancillary testing reviewed. The risk of having active MTB infection is very low in my clinical judgement. ASA: 3 Malampati score: Class I Consent: Consents were obtained from patient/MPOA and placed in the chart. Procedure Details: Time out was performed by the procedure team and nursing staff. Vent support maintained on Fio2 100. The bronchoscope was introduced through the LMA. A bronchoscopic airway exam was performed to evaluate the visible tracheobronchial tree to the segmental level. Summary of Significant Findings: -Bronchoscope passed through LMA. The scope was passed further to visualize distal trachea which was noted to be normal. Main sonal visualized which was sharp and normal. Then the scope was left bronchial tree was assessed to include the left mainstem bronchus, LILLIAN, Lingula, and LLL bronchi to the segmental and subsegmental level. No active bleeding noted. Mucosa appeared normal. Noted clear secretions which were suctioned right away. Then the scope was passed through the right bronchial tree was assessed to include the right mainstem bronchus, RBI, and RUL/RML/RLL bronchi to the segmental and subsegmental levels. Opening of superior segment of right lower lobe appeared edematous and openings were narrow and collapsible with suctioning. No active bleeding noted. Mucosa appeared normal. Clear secretions noted which were suctioned right away. BAL taken from right middle lobe and right lower lobe Transbronchial biopsies were taken from anterior segment of right upper lobe, right middle lobe and superior segment of right lower lobe. Cold saline and a diluted epinephrine with saline were injected into the subsegments to prevent active bleeding. After making sure no active bleeding the bronchoscope was then removed and the procedure terminated. Estimated Blood Loss: None Specimens: Bronchoalveolar lavage was taken from right middle lobe and sent for microbiology cultures, fungal cultures and PCP. Transbronchial biopsies from anterior segment of right upper lobe, right middle lobe and superior segment of right lower lobe were sent to pathology. Complications:None; patient tolerated the procedure well. Postprocedure chest x-ray pending Disposition: Patient is sent to postop and once awake and starts to swallow then will discharge home Patient tolerated the procedure well. Constantine Bettencourt MD Pulmonary critical Care Medicine [facility] Pre-op Diagnosis: Lung cancer Associated Problem List Diagnoses (1) Interstitial pneumonitis: (2) Pleural effusion, right: (3) Immunotherapy: (4) Dyspnea on exertion: (5) Lung cancer: Qualifiers: Laterality: right Lung location: upper lobe of lung Qualified Code(s): C34.11 - Malignant neoplasm of upper lobe, right bronchus or lung
[2020-04-14] MEDS: ipratropium-albuterol 3 mL Neb INHALATION (08:55)
--- NOTE | 2020-04-14 09:06 | P.PCN_ITS ---
Procedure Note: Date of procedure: 04/14/20 Pre-procedure diagnosis: Right pleural effusion-malignancy Post-procedure diagnosis: same Procedure: Pulmonary & Critical Care Medicine Procedure - Thoracentesis Procedure: Thoracentesis Indication: Right pleural effusion Siding Stapler(s): Constantine Del Castillor Consent: Signed and placed in chart Anesthesia: 10 cc 1% lidocaine without epinephrine Description: Patient was sedated and the LMA was placed for bronchoscopy and transbronchial biopsy. After placing the patient in appropriate position, pleural effusion was localized using ultrasound guidance and the site was marked accordingly. After chlorhexidine skin prep, area was draped in a sterile manner. 1% lidocaine was used for local anesthesia. Thoracentesis catheter was then inserted into the pleural space with aspiration of 800 cc of pleural fluid. Appearance was straw-colored. Catheter was left in place until bronchoscopy with transbronchial biopsies was performed. Postprocedure x-ray showed suspicious for small subpulmonic pneumothorax likely secondary to trapped lung.Catheter removed while patient was in postop recovery area and patient was discharged saturating 95% on room air. Ultrasound guidance used: Yes. Image saved to ultrasound machine yes EBL: 5 cc Complications: None CXR: Small bore chest tube at the RIGHT lower thorax and suspicious for small subpulmonic pneumothorax likely due to trapped lung. Op report anesthesia: General Condition: stable Disposition: PACU Coding Level of Care Code Established Pt Acute Director Of Solutions Architecture for Chg Fwd Patient Type Established History Comprehensive Exam Comprehensive Medical Decision Making Moderate Complexity Time Spent (min) 30
[2020-04-14] MEDS: lidocaine 2% INJ 20 mL INJECTION (09:38)
--- NOTE | 2020-04-14 09:46 | SUR.PHASEII ---
0930: Dataanalilia in room to pull patients thoracentesis catheter. Patient on 4L O2, awake and alert. Catheter pulled, xeroform and 4x4 gauze placed over wound, tegaderm applied. patient tolerated well.
[2020-04-14 09:51] LABS: Mononuclear %, Pleural Fluid 98 %; Polynuclear Cells, Pleural % 2 %
[2020-04-14 11:02] LABS: Albumin Body Fluid 2.8 g/dL; Amylase Body Fluid 27 U/L; Appearance, Pleural Fluid CLEAR (CLEAR); Cholesterol Body Fluid 51 mg/dL (0-200); Color, Pleural Fluid Pale Yellow (Pale Yellow); Fluid Alkaline Phos. 29 IU/L; LDH Body Fluid 116 U/L; PATH Referal YES; Total Protein Pleural Fluid 3.8 g/dL; Triglycerides Body Fluid 21 mg/dL (0-150); Uric Acid Body Fluid 8 mg/dL
[2020-04-19 16:33] LABS: Pneumocystis Jirovecii DNA PCR NO DNA DETECTED copies/mL; Pneumocystis Jirovecii Source BAL
== END 2020-04-14 11:10 | disposition home or self-care (01) ==
PROVIDERS: PCP Family Medicine; Visit Provider Internal Medicine Pulmonary Disease
PROC: 0BJ08ZZ Inspection of Tracheobronchial Tree, Via Natural or Artificial Opening Endoscopic (ICD-10-PCS; CPT 31622; principal; 2020-04-14 07:00)
PROC: (CPT 32554; 2020-04-14 07:00)
DX: C34.11 Malignant neoplasm of upper lobe, right bronchus or lung (principal); J90 Pleural effusion, not elsewhere classified; Z29.8 Encounter for other specified prophylactic measures; J84.89 Other specified interstitial pulmonary diseases; R06.00 Dyspnea, unspecified; J44.9 Chronic obstructive pulmonary disease, unspecified; I10 Essential (primary) hypertension; Z87.891 Personal history of nicotine dependence
CPT/HCPCS: 32554; 12345; 71045; 76000; 80500; 82042; 82150; 82465; 82945; 83615; 83986; 84075; 84157; 84315; 84478; 84560; 87070; 87075; 87102; 87205; 87206; 87799; 88305; 89050; J0171; J1100; J2250; J2405; J2704; J3010; J7030

== ENCOUNTER 2020-04-20 06:05 | Outpatient (RCR) | payer MEDICARE, BC, SELFPAY ==
[2020-04-20 09:39] LABS: Basophils % 0.2 %; Eosinophils # 0.2 10^3/uL (0.0-0.8); Eosinophils % 2.3 %; Hematocrit 44.4 % (42.0-52.0); Hemoglobin 13.8 g/dL (11.7-16.6); Lymphocytes # 0.7 10^3/uL (0.8-4.8); Lymphocytes % 8.2 %; Mean Corpuscular HGB Conc 31.1 g/dL (30.0-36.0); Mean Corpuscular Volume 90.2 fL (80-94); Mean Platelet Volume 9.9 fL (7.4-10.4); Monocytes # 1.2 10^3/uL (0.2-0.9); Monocytes % 14.1 %; Neutrophils # 6.33 10^3/uL (1.8-7.7); Neutrophils % 73.1 %; Nucleated Red Blood Cells % 0 %; Platelet Count 282 10^3/cmm (130-400); Red Blood Count 4.92 10^6/uL (4.1-5.3); Red Cell Distribution Width 12.7 % (12.1-15.1); White Blood Count 8.7 10^3/uL (4.0-10.0)
[2020-04-20 10:12] LABS: Alanine Aminotransferase 25 U/L (0-41); Albumin Level 3.8 g/dL (3.5-5.2); Alkaline Phosphatase 85 IU/L (40-130); Anion Gap 12.4 (5-19); Aspartate Amino Transferase 14 U/L (0-40); Blood Urea Nitrogen 21 mg/dL (8-23); Calcium 8.8 mg/dL (8.5-10.5); Carbon Dioxide 32 mmol/L (22-29); Chloride 100 mmol/L (98-107); Glucose 94 mg/dL (65-115); Osmolality Calculated 293 mOsm/kg (285-295); Potassium 4.4 mmol/L (3.5-5.1); Sodium 140 mmol/L (136-145); Thyroid Stimulating Hormone 2.11 uIU/mL (0.27-4.20); Total Bilirubin 0.2 mg/dL (0.15-1.2)
[2020-04-20 12:54] LABS: Testosterone Total 344.3 ng/dL (193-740)
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
[2020-04-20 14:31] LABS: Globulin 2.4 g/dL (1.3-4.6); Total Protein 6.2 g/dL (6.6-8.7)
== END 2020-04-26 23:59 | disposition home or self-care (01) ==
LOC: ONCMED 06:05
PROVIDERS: Absent Provider Radiology Radiation Oncology; PCP Family Medicine; Visit Provider Nurse Practitioner
DX: C34.11 Malignant neoplasm of upper lobe, right bronchus or lung (principal); C77.0 Secondary and unspecified malignant neoplasm of lymph nodes of head, face and neck; C79.31 Secondary malignant neoplasm of brain; J90 Pleural effusion, not elsewhere classified; J70.0 Acute pulmonary manifestations due to radiation; J44.9 Chronic obstructive pulmonary disease, unspecified; I12.9 Hypertensive chronic kidney disease with stage 1 through stage 4 chronic kidney disease, or unspecified chronic kidney disease; N18.9 Chronic kidney disease, unspecified; Z79.899 Other long term (current) drug therapy
CPT/HCPCS: 36591; 80053; 84403; 84443; 85025; 99215

== ENCOUNTER 2020-04-20 12:01 | Outpatient (CLI) | payer MEDICARE, BC, SELFPAY ==
--- NOTE | 2020-04-20 12:10 | XR_ITS ---
WS: [id number] Exam: XR chest 2V* [id number] Date/Time of Exam: 04/20/2020 12:19 PM Reason For Exam: COUGH/SHORTNESS OF BREATH/PLEURITIC CHEST PAIN/LUNG CA Comparison 04/14/2020. There is a 90% pneumothorax of the right lung. The left lung is fully expanded and hyperinflated. Car diomediastinal structures remain midline. No sign of tension pneumothorax. A right subclavian port en ds at the cavoatrial junction in good position. There is right basal pleural effusion. Regional bony elements are intact. XR/XR chest 2V* [id number] IMPRESSION: 1. 90% pneumothorax of the right lung but no sign of tension. 2. Probable pulmonary emphysema. 3. Right basal pleural effusion noted. These results were discussed by phone with Jo Villeda nurse practitioner, th e attending caregiver at 12:34 PM
== END 2020-04-20 12:02 | disposition home or self-care (01) ==
LOC: RAD 12:08
PROVIDERS: PCP Family Medicine; Visit Provider Internal Medicine Hematology & Oncology
DX: R05 Cough (principal); R06.02 Shortness of breath; C34.11 Malignant neoplasm of upper lobe, right bronchus or lung; R07.89 Other chest pain; J90 Pleural effusion, not elsewhere classified
CPT/HCPCS: 71046

== ENCOUNTER 2020-04-20 15:22 | Emergency (ER) | payer MEDICARE, BC, SELFPAY ==
[2020-04-20] VITALS (7 sets, daily range): BP systolic 147–165; BP diastolic 85–95; PULSE 85–90; RESP 16–27; TEMP 36.4; O2SAT 90–94; BMI 30.5
[2020-04-20] MEDS: lidocaine 1% INJ 20 mL SUBCUT (18:37)
--- NOTE | 2020-04-20 18:38 | PC.NURSE ---
Fariha Rios and Rut placed Thoracic Vent at bedside, placed to wall suction continuously at 30mmHg. Pt tolerating well. See physician procedure notes.
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
--- NOTE | 2020-04-20 18:58 | XR_ITS ---
WS: [id number] Exam: XR chest 1V portable [id number] Date/Time of Exam: 04/20/2020 7:00 PM Reason For Exam: pneumothorax, s/p thoravent placement Comparison 04/20/2020. A small right thoracostomy tube is been placed in the upper lateral right pleural cavity. The right l cecille is almost completely expanded. A very tiny right apical pneumothorax is seen. A right subclavian port is noted ending at the cavoatrial junction. There is residual atelectasis and possibly some infi ltrate in the mid right lung. Mild subcutaneous emphysema along the right rib cage. Left lung remains clear. Cardiomediastinal structures are unremarkable. XR/XR chest 1V portable [id number] IMPRESSION: 1. The right lung is almost completely expanded with a very tiny right apical p neumothorax noted. 2. Small right thoracostomy tube in place in the upper lateral right pleural ca vity. Minimal subcutaneous emphysema along the right rib cage. 3. Residual atelectasis and infiltrate in the mid right lung.
--- NOTE | 2020-04-20 19:01 | PC.NURSE ---
report received from JOVAN HARDEN and care transferred to JOVAN MONTERO
--- NOTE | 2020-04-20 19:24 | ED_ITS ---
HPI - SOB/Dyspnea General: Chief Complaint: Shortness of Breath/Dyspnea Stated Complaint: phy ref/collapsed lung Time Seen by Provider: 04/20/20 15:30 Source: patient Mode of arrival: ambulatory Limitations: no limitations History of Present Illness: HPI Narrative: This is a pleasant 74-year-old male with a history of lung cancer who is a patient of Dr. Mcallister. The patient has had chemotherapy and radiation with a good outcome. He has been having increased shortness of breath so he had a CT scan done 13 days ago which showed right pleural effusion. He was then referred to the human resources office manager who drained deep like pleural effusion 6 days ago at the same time he also did a bronchoscopy and biopsy. The procedure was unremarkable. However after the procedure he had a very small pneumothorax which was not concerning to the human resources office manager. The patient returns to the oncologist today and said he had not sustained any improvement in his respiratory status after the drainage of the pleural effusion. On examination the oncologist did not hear any breath sounds on the right so he ordered a chest x-ray which showed 90% pneumothorax with lung collapse. The patient was therefore sent to the emergency department and the human resources office manager will also come and see him here. The patient endorses shortness of breath but he states it is only on exertion and when he is at rest he has no significant shortness of breath. He denies any fever, oxygen saturation has been fine. MD elicited complaint: shortness of breath Associated symptoms: Deny abdominal pain, fever(s), nausea, palpitations, polydipsia, polyuria or vomiting Review of Systems General: Reports: 10 or more systems reviewed and unremarkable except in HPI and below Const: Denies: fever(s), chills or body aches Eyes: Denies: change in vision or blurry vision ENMT: Denies: throat pain, enlarged tonsils, odynophagia, hoarseness, mouth pain or swelling of lips/tongue Card: Denies: palpitations, irregular heart rhythm, edema or swelling of feet/ankles Resp: Reports: dyspnea; Denies: productive cough or non-productive cough GI: Denies: abdominal pain, nausea or vomiting : Denies: flank pain, dysuria, urinary frequency, urinary urgency or urinary hesitancy Musc: Denies: neck pain, back pain or extremity swelling Skin/Breast: Denies: rash, pruritus or erythema Neuro: Denies: headache(s), numbness in extremities or weakness in extremities Endo: Denies: polyuria, polydipsia or tired all the time PFSH ED PFSH: Medical History Hypertension Kidney stone Lung cancer Seasonal allergies Family History Son Diabetes Mother Cancer Social History Smoking and tobacco status: former smoker Quit status (tobacco): has quit using tobacco Year quit tobacco: 2007 [id number] Second hand smoke exposure: Yes Smoking risk assessment/counseling performed?: Yes Alcohol intake: never Lives independently: Yes Household members: spouse Housing: House Marital status: service: Yes Current occupational status: retired History of recent travel: No Current gender identity: Male Physical Exam Const: COMMON NORMALS: no acute distress, average body habitus, patient oriented x3, no limitations, healthy appearing, alert and well nourished Neck/C-Spine: COMMON NORMALS: no meningeal signs and no JVD Chest: COMMONS NORMALS: normal palpation of entire chest wall OTHER: Port noted on the right side of his chest. Resp: COMMON NORMALS: normal respiratory effort, No retractions, No use of accessory muscles and percussion normal AUSCULTATION: breath sounds absent on the right PERCUSSION: percussion normal Cardio: COMMON NORMALS: no JVD, regular rate, regular rhythm, S1 normal heart sound present, S2 normal heart sound present, No gallops present (Cardio), No clicks present (Cardio), No murmurs present (Cardio), No rub (Cardio) and Peripheral pulses 2+ throughout RATE: regular rate RHYTHM: regular rhythm HEART SOUNDS: S1 normal heart sound present and S2 normal heart sound present PERIPHERAL PULSES: Peripheral pulses 2+ throughout GI: COMMON NORMALS: Normal to inspection, nondistended, normoactive bowel s ounds present, Soft to palpation, non-tender, No hepatosplenomegaly present, no masses and no bruits PALPATION: Yes Soft to palpation and Yes No hepatosplenomegaly present Extremity: COMMON NORMALS: normal to inspection, full ROM, capillary refill normal, no calf tenderness and no pedal edema Neuro: COMMON NORMALS: patient oriented x3 SENSORIUM/ORIENTATION: Yes alert MENINGEAL SIGNS: Yes no meningeal signs Skin: COMMON NORMALS: no rashes or lesions noted, no wounds, turgor normal, no jaundice, no petechiae and no mottling GENERAL SKIN EXAM: no rashes or lesions noted and turgor normal Course Reevaluation(s): Reevaluation #1: Looked at his repeat chest x-ray and he has good lung expansion. A Thora vent is disconnected from suction by me and instructed on how to close it when the human resources office manager calls out and instructed to close it. We will discharge him home, human resources office manager will call him tomorrow for further i nstructions. They already know this. He voiced understanding and are in agreement with the plan. Time: 19:24 Consultations: Consultation #1: Dr. Bettencourt and Gabriel, pulmonologists and they inserted the Thoravent and gave the patient and his instructions for care of the thoravent. Vital Signs: Vital signs: Vital Signs Temperature 97.5 F L 04/20/20 15:28 Pulse Rate 89 04/20/20 19:42 Respiratory Rate 16 04/20/20 19:42 Blood Pressure 159/86 04/20/20 19:42 Pulse Oximetry 93 04/20/20 19:42 MDM - SOB/Dyspnea MDM Narrative: Medical decision making narrative: 74-year-old patient with lung cancer who developed pleural effusion and had the pleural effusion drained. He also underwent a bronchoscopy and developed subsequently over 6 days a large pneumothorax. The patient was short of breath but was not in distress. Oxygen saturation was normal on room air. In the emergency department the human resources office manager inserted a Thora vent with good effect. On x-ray after an hour of suction on the vent he had good expansion of his lungs. The human resources office manager give the patient and his care instructions. He is discharged home with no new orders. The patient tolerated the procedure well and was in no distress on discharge. Imaging Data^: CXR: Attestation: I personally reviewed and interpreted this imaging study as follows: My impression: Reexpansion of the lung noted. The right vent catheter in situ. Right-sided Port-A-Cath in situ Discharge Plan Discharge Patient Disposition: Home Clinical Impression: Pneumothorax after biopsy Condition: Stable Prescriptions: Continued zolpidem 5 mg tablet 5 mg PO BEDTIME@ RF: 0 simvastatin 10 mg tablet 10 mg PO DAILY@ RF: 0 carvedilol 12.5 mg tablet 12.5 mg PO BID@ RF: 0 amlodipine 10 mg tablet 10 mg PO DAILY@ RF: 0 omeprazole 20 mg capsule,delayed release(DR/EC) 20 mg PO DAILY@ RF: 0 escitalopram oxalate 20 mg tablet 20 mg PO DAILY@ RF: 0 aspirin [Adult Aspirin Regimen] 81 mg tablet,delayed release (DR/EC) 81 mg PO DAILY@ RF: 0 Hold Instructions: Resume on 11/22/19. diphenhydramine-acetaminophen [Tylenol PM Extra Strength] 25-500 mg tablet 1 tab PO Q6H PRN (Reason: Sleep) RF: 0 loratadine 10 mg capsule 10 mg PO DAILY@ RF: 0 levothyroxine 25 mcg Tablet 25 mcg PO DAILY@ RF: 0 Spiriva Respimat 2.5 mcg/actuation mist 2 puff inhalation DAILY@ RF: 0 hydrocodone-acetaminophen [[place]] 5-325 mg tablet 1 tab PO Q6H PRN (Reason: pain) Qty: 14 RF: 0 Discharge Orders: Discharge ED (Routine); Ordered 04/20/20 Ordered By: Emily Pal Referrals: Constantine Bettencourt MD [Physician] - 1-3 days Blayne Hooper MD [Primary Care Provider] - 1-3 days Discharge Diet: Usual diet Discharge Activity: Increase activity as tolerated Patient Instructions: Pneumothorax Activity Restrictions/Additional Instructions: Return for any new or worsening symptoms. Follow-up with Dr. Bettencourt as instructed. Continue home medications as prescribed. Continue management as outlined by Dr. Bettencourt. Coding Level of Care Code ED Improvement Nurse for Tila Rubalcava
[2020-04-20] MEDS: HYDROcodone-acetaminophen 7.5-325 mg Tablet 1 TAB PO (19:48)
== END 2020-04-20 19:42 | disposition home or self-care (01) ==
PROVIDERS: Emergency Provider Family Medicine; PCP Family Medicine
DX: J95.811 Postprocedural pneumothorax (principal); Z79.82 Long term (current) use of aspirin; I10 Essential (primary) hypertension; Z85.118 Personal history of other malignant neoplasm of bronchus and lung; Z87.891 Personal history of nicotine dependence
CPT/HCPCS: 12345; 71045; 96374; 99283

== ENCOUNTER 2020-04-23 13:53 | Outpatient (CLI) | payer MEDICARE, BC, SELFPAY ==
--- NOTE | 2020-04-23 14:03 | XR_ITS ---
WS: [id number] Exam: XR chest 2V* [id number] Date/Time of Exam: 04/23/2020 2:04 PM Reason For Exam: J95.811 - Postprocedural pneumothorax Comparison 04/20/2020. There is approximately 40% pneumothorax of the right lung. Left lung remains fully expanded and clear . No tension or midline shift. The heart and mediastinal structures are unremarkable. Right subclavia n port ends near the cavoatrial junction. Atelectatic changes noted in the partially collapsed right lung. Right chest tube in place extending into the upper anterior pleural cavity. Mild subcutaneous e mphysema seen along the anterior right chest wall. XR/XR chest 2V* [id number] IMPRESSION: 1. 40% pneumothorax of the right lung predominantly involving the right upper l obe. 2. Right chest tube in place in the upper anterior right pleural cavity. 3. The left lung is clear and fully expanded. Findings most likely representing COPD.
== END 2020-04-23 13:54 | disposition home or self-care (01) ==
PROVIDERS: PCP Family Medicine; Visit Provider Internal Medicine Pulmonary Disease
DX: J95.811 Postprocedural pneumothorax (principal); Z97.8 Presence of other specified devices
CPT/HCPCS: 71046

== ENCOUNTER 2020-04-27 05:44 | Outpatient (RCR) | payer MEDICARE, BC, SELFPAY ==
[2020-04-27 15:32] LABS: Basophils % 0.2 %; Eosinophils % 0.2 %; Hematocrit 44.2 % (42.0-52.0); Hemoglobin 13.8 g/dL (11.7-16.6); Lymphocytes # 0.4 10^3/uL (0.8-4.8); Lymphocytes % 3.2 %; Mean Corpuscular HGB Conc 31.2 g/dL (30.0-36.0); Mean Corpuscular Hemoglobin 27.6 pg (28.0-34.0); Mean Corpuscular Volume 88.4 fL (80-94); Mean Platelet Volume 10.5 fL (7.4-10.4); Monocytes # 0.4 10^3/uL (0.2-0.9); Monocytes % 2.8 %; Neutrophils # 11.41 10^3/uL (1.8-7.7); Neutrophils % 92.5 %; Nucleated Red Blood Cells % 0 %; Platelet Count 299 10^3/cmm (130-400); Red Cell Distribution Width 12.6 % (12.1-15.1); White Blood Count 12.4 10^3/uL (4.0-10.0)
[2020-04-27 16:01] LABS: Alanine Aminotransferase 37 U/L (0-41); Albumin Level 3.7 g/dL (3.5-5.2); Alkaline Phosphatase 72 IU/L (40-130); Anion Gap 11.5 (5-19); Aspartate Amino Transferase 18 U/L (0-40); Blood Urea Nitrogen 19 mg/dL (8-23); Calcium 9.2 mg/dL (8.5-10.5); Carbon Dioxide 32 mmol/L (22-29); Chloride 99 mmol/L (98-107); Globulin 2.7 g/dL (1.3-4.6); Glucose 132 mg/dL (65-115); Osmolality Calculated 290 mOsm/kg (285-295); Potassium 4.5 mmol/L (3.5-5.1); Sodium 138 mmol/L (136-145); Total Bilirubin 0.2 mg/dL (0.15-1.2); Total Protein 6.4 g/dL (6.6-8.7)
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
== END 2020-05-24 23:59 | disposition home or self-care (01) ==
LOC: ONCMED 05:44
PROVIDERS: Absent Provider Radiology Radiation Oncology; PCP Family Medicine; Visit Provider Internal Medicine Hematology & Oncology
DX: C34.11 Malignant neoplasm of upper lobe, right bronchus or lung (principal); C79.31 Secondary malignant neoplasm of brain; C77.1 Secondary and unspecified malignant neoplasm of intrathoracic lymph nodes; J44.9 Chronic obstructive pulmonary disease, unspecified; I10 Essential (primary) hypertension; N18.9 Chronic kidney disease, unspecified; Z92.21 Personal history of antineoplastic chemotherapy; Z92.3 Personal history of irradiation; Z79.52 Long term (current) use of systemic steroids; Z79.899 Other long term (current) drug therapy
CPT/HCPCS: 36415; 80053; 85025; 99214

== ENCOUNTER 2020-04-27 14:26 | Outpatient (CLI) | payer MEDICARE, BC, SELFPAY ==
--- NOTE | 2020-04-27 14:33 | XRR_ITS ---
PROCEDURE INFORMATION: Exam: XR Chest, 2 Views Exam date and time: 04/27/2020 2:33 PM Age: 74 years old Clinical indication: Condition or disease; Lung condition and disease; Pneumothorax; Additional info: Pnemothorax TECHNIQUE: Imaging protocol: XR of the chest Views: 2 views. COMPARISON: CR XR chest 2V* [id number] 04/23/2020 2:06 PM FINDINGS: Tubes, catheters and devices: A right side central line is in place extending into the right atrium. A chest tube is in place in the right upper lobe stable since prior Lungs: There is a parenchymal densities in the right perihilar region decreased since prior examination. These findings suggest resolving pneumonia . Prior right lung pneumothorax has now re-expanded. Pleural spaces: Unremarkable. No pleural effusion. No pneumothorax. Heart/Mediastinum: Unremarkable. No cardiomegaly. Bones/joints: Unremarkable. XR/XR chest 2V* [id number] IMPRESSION: 1. Parenchymal density right perihilar region suspicious for resolving pneumonia 2. A central line is present on the right side extending into the right atrium 3. A chest tube is in place on the right upper lobe stable since prior. 4. Previously seen right lung pneumothorax has re-expanded arm.
== END 2020-04-27 14:27 | disposition home or self-care (01) ==
LOC: RAD 14:32
PROVIDERS: PCP Family Medicine; Visit Provider Internal Medicine Pulmonary Disease
DX: J93.9 Pneumothorax, unspecified (principal)
CPT/HCPCS: 71046

== ENCOUNTER 2020-05-03 13:39 | Outpatient (CLI) | payer MEDICARE, BC, SELFPAY ==
--- NOTE | 2020-05-03 14:04 | XRR_ITS ---
PROCEDURE INFORMATION: Exam: XR Chest, 2 Views Exam date and time: 05/03/2020 2:04 PM Age: 74 years old Clinical indication: Device placement; Chest tube; Additional info: Resolution of pneumothorax TECHNIQUE: Imaging protocol: XR of the chest Views: 2 views. COMPARISON: CR XR chest 2V* [id number] 04/27/2020 2:42 PM FINDINGS: Tubes, catheters and devices: A right central line is in place extending into the right atrium. A chest tube is present in the right upper lobe stable since prior Lungs: Parenchymal consolidations are seen in the right perihilar region stable since prior. These findings likely represent pneumonia Pleural spaces: Unremarkable. No pleural effusion. No pneumothorax. Heart/Mediastinum: Unremarkable. No cardiomegaly. Bones/joints: Unremarkable. XR/XR chest 2V* [id number] IMPRESSION: 1. Stable right perihilar parenchymal densities likely representing pneumonia. 2. A right side PICC line extends into the right atrium. 3. A chest tube is in place in the right upper chest lung stable since prior
== END 2020-05-03 13:40 | disposition home or self-care (01) ==
LOC: RAD 13:43
PROVIDERS: PCP Family Medicine; Visit Provider Internal Medicine Pulmonary Disease
DX: J93.9 Pneumothorax, unspecified (principal); Z97.8 Presence of other specified devices
CPT/HCPCS: 71046

== ENCOUNTER 2020-05-04 10:27 | Outpatient (CLI) | payer MEDICARE, BC, SELFPAY ==
--- NOTE | 2020-05-04 10:39 | XRR_ITS ---
PROCEDURE INFORMATION: Exam: XR Chest, 2 Views Exam date and time: 05/04/2020 10:41 AM Age: 74 years old Clinical indication: Condition or disease; Lung condition and disease; Other: Pneumothorax after clamping vent yester; Prior surgery; Surgery type: Chest tube; Additional info: To see recurrence of pneumothorax after clamping vent yester TECHNIQUE: Imaging protocol: XR of the chest Views: Frontal and lateral upright views. COMPARISON: CR (CHEST, ) 05/03/2020 2:06 PM FINDINGS: Tubes, catheters and devices: The right subclavian venous portacatheter tip is in the cavoatrial junction. Lungs: The pulmonary vasculature is normal. Posterior right lower lobe partial atelectasis, stable. Pleural spaces: No pneumothorax. No pleural effusion. Heart/Mediastinum: The heart is normal in size and contour. Vasculature: Moderate aortic arch atherosclerotic calcification without ectasia. Bones/joints: Stable position right thoracic vent. No destructive bony process identified. Other findings: Right parahilar mass, stable. Prominent right epiphrenic adipose. XR/XR chest 2V* [id number] IMPRESSION: 1. No pneumothorax. 2. Right parahilar mass, stable. 3. Posterior right lower lobe partial atelectasis, stable.
== END 2020-05-04 10:28 | disposition home or self-care (01) ==
PROVIDERS: PCP Family Medicine; Visit Provider Internal Medicine Pulmonary Disease
DX: J93.9 Pneumothorax, unspecified (principal); J98.11 Atelectasis
CPT/HCPCS: 71046

== ENCOUNTER 2020-05-26 05:46 | Outpatient (RCR) | payer MEDICARE, BC, SELFPAY ==
[2020-05-26 10:08] LABS: Alanine Aminotransferase 13 U/L (0-41); Albumin Level 3.9 g/dL (3.5-5.2); Alkaline Phosphatase 70 IU/L (40-130); Anion Gap 12.6 (5-19); Aspartate Amino Transferase 12 U/L (0-40); Blood Urea Nitrogen 13 mg/dL (8-23); Calcium 8.9 mg/dL (8.5-10.5); Carbon Dioxide 30 mmol/L (22-29); Chloride 100 mmol/L (98-107); Globulin 2.7 g/dL (1.3-4.6); Glucose 101 mg/dL (65-115); Osmolality Calculated 286 mOsm/kg (285-295); Potassium 4.6 mmol/L (3.5-5.1); Sodium 138 mmol/L (136-145); Total Bilirubin 0.4 mg/dL (0.15-1.2); Total Protein 6.6 g/dL (6.6-8.7)
[2020-05-26 10:51] LABS: Basophils % 0.3 %; Eosinophils # 0.1 10^3/uL (0.0-0.8); Eosinophils % 3.1 %; Hematocrit 40.8 % (42.0-52.0); Hemoglobin 12.6 g/dL (11.7-16.6); Lymphocytes # 0.4 10^3/uL (0.8-4.8); Mean Corpuscular HGB Conc 30.9 g/dL (30.0-36.0); Mean Corpuscular Hemoglobin 27.5 pg (28.0-34.0); Mean Corpuscular Volume 89.1 fL (80-94); Mean Platelet Volume 10.1 fL (7.4-10.4); Monocytes # 0.7 10^3/uL (0.2-0.9); Monocytes % 21.7 %; Neutrophils # 1.94 10^3/uL (1.8-7.7); Neutrophils % 60.3 %; Nucleated Red Blood Cells % 0 %; Platelet Count 207 10^3/cmm (130-400); Red Blood Count 4.58 10^6/uL (4.1-5.3); Red Cell Distribution Width 14.4 % (12.1-15.1); White Blood Count 3.2 10^3/uL (4.0-10.0)
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
== END 2020-06-05 06:00 | disposition home or self-care (01) ==
LOC: ONCMED 05:46
PROVIDERS: Nurse Practitioner; PCP Family Medicine; Visit Provider Internal Medicine Hematology & Oncology
DX: C34.11 Malignant neoplasm of upper lobe, right bronchus or lung (principal); C79.31 Secondary malignant neoplasm of brain; C77.0 Secondary and unspecified malignant neoplasm of lymph nodes of head, face and neck; J18.9 Pneumonia, unspecified organism; J01.90 Acute sinusitis, unspecified; J44.9 Chronic obstructive pulmonary disease, unspecified; I12.9 Hypertensive chronic kidney disease with stage 1 through stage 4 chronic kidney disease, or unspecified chronic kidney disease; N18.9 Chronic kidney disease, unspecified; Z87.891 Personal history of nicotine dependence; Z97.8 Presence of other specified devices; Z79.899 Other long term (current) drug therapy; Z79.52 Long term (current) use of systemic steroids
CPT/HCPCS: 36591; 80053; 85025; 99215

== ENCOUNTER 2020-06-05 13:17 | Outpatient (CLI) | payer MEDICARE, BC, SELFPAY ==
--- NOTE | 2020-06-05 14:00 | CT_ITS ---
WS: [id number] CT CHEST high-resolution CT. HISTORY: resolution of pneumonitis TECHNIQUE: High-resolution imaging performed. Coronal and sagittal reformats are submitted. All CT s cans at [facility] use at least one of these dose optimization techniques: automated expos ure control; mA and/or kV adjustment per patient size (includes targeted exams where dose is matched to clinical indication); or iterative reconstruction. CONTRAST: None DLP: 1943.3 mGycm COMPARISON: 04/07/2020 Moderate size layering RIGHT pleural effusion with minimal increase since the prior study. Progressiv e increase in thickened reticular nodular opacifications beginning at the hilum extending greatest in to the RIGHT upper lobe. There is marked increase in soft tissue thickening at the hilum extending in to the bronchopulmonary structures centrally. Previously described RIGHT upper lobe nodule adjacent t o the fissure is being obscured by progression of airspace disease and adjacent fluid and reticulatio ns. LEFT lung is clear. Benign granuloma at the LEFT base. With supine and prone positioning and inspiration and expiration there has been no significant change in the dense airspace disease in the RIGHT upper lobe with adjacent bronchial wall thickening. The p leural fluid is mobile and doesn't change location and become dependent on prone positioning. RIGHT subclavian Mediport with tip in the distal SVC. Calcified subcarinal and hilar lymph nodes. Small anterior pericardial effusion. The heart is not enlarged. Upper abdomen: No adrenal mass. Visualized liver is negative. Osseous structures: No destructive process. CT/CT chest wo con [id number] IMPRESSION: 1. Mobile RIGHT pleural effusion changes position from supine to prone imaging . 2. Significant progression of airspace disease and bronchial wall thickening a nd soft tissue consolidation involving the RIGHT hilum and extending into the R IGHT upper lobe. As there is a history of lung cancer progression of neoplastic process and lymphangitic spread of tumor should be considered. Some of these c hanges may be postradiation treatment if that is within the history. The previo usly described nodule in the RIGHT upper lobe is being obscured by increasing a irspace disease and fluid.
== END 2020-06-05 13:18 | disposition home or self-care (01) ==
LOC: RADWPI 13:21
PROVIDERS: PCP Family Medicine; Visit Provider Internal Medicine Pulmonary Disease
DX: J18.9 Pneumonia, unspecified organism (principal); J90 Pleural effusion, not elsewhere classified; Z85.118 Personal history of other malignant neoplasm of bronchus and lung
CPT/HCPCS: 71250

== ENCOUNTER 2020-06-09 05:33 | Outpatient (RCR) | payer MEDICARE, BC, SELFPAY ==
[2020-06-09 09:13] LABS: Basophils % 0.2 %; Hematocrit 40.4 % (42.0-52.0); Hemoglobin 12.7 g/dL (11.7-16.6); Lymphocytes # 0.3 10^3/uL (0.8-4.8); Lymphocytes % 5.5 %; Mean Corpuscular HGB Conc 31.4 g/dL (30.0-36.0); Mean Corpuscular Hemoglobin 27.3 pg (28.0-34.0); Mean Corpuscular Volume 86.9 fL (80-94); Mean Platelet Volume 9.7 fL (7.4-10.4); Monocytes # 0.5 10^3/uL (0.2-0.9); Monocytes % 8.6 %; Neutrophils # 4.47 10^3/uL (1.8-7.7); Neutrophils % 85.3 %; Nucleated Red Blood Cells % 0 %; Platelet Count 284 10^3/cmm (130-400); Red Blood Count 4.65 10^6/uL (4.1-5.3); Red Cell Distribution Width 14.9 % (12.1-15.1); White Blood Count 5.2 10^3/uL (4.0-10.0)
[2020-06-09 09:33] LABS: Alanine Aminotransferase 9 U/L (0-41); Albumin Level 3.9 g/dL (3.5-5.2); Alkaline Phosphatase 77 IU/L (40-130); Anion Gap 15.7 (5-19); Aspartate Amino Transferase 11 U/L (0-40); Blood Urea Nitrogen 18 mg/dL (8-23); Calcium 9.1 mg/dL (8.5-10.5); Carbon Dioxide 26 mmol/L (22-29); Chloride 98 mmol/L (98-107); Globulin 2.8 g/dL (1.3-4.6); Glucose 138 mg/dL (65-115); Osmolality Calculated 284 mOsm/kg (285-295); Potassium 4.7 mmol/L (3.5-5.1); Sodium 135 mmol/L (136-145); Total Bilirubin 0.5 mg/dL (0.15-1.2); Total Protein 6.7 g/dL (6.6-8.7)
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
== END 2020-06-19 06:00 | disposition home or self-care (01) ==
LOC: ONCMED 05:33
PROVIDERS: PCP Family Medicine; Visit Provider Internal Medicine Hematology & Oncology
DX: C34.11 Malignant neoplasm of upper lobe, right bronchus or lung (principal); C77.0 Secondary and unspecified malignant neoplasm of lymph nodes of head, face and neck; C79.31 Secondary malignant neoplasm of brain; J44.9 Chronic obstructive pulmonary disease, unspecified; I10 Essential (primary) hypertension; N17.9 Acute kidney failure, unspecified; J90 Pleural effusion, not elsewhere classified; Z92.21 Personal history of antineoplastic chemotherapy; Z92.3 Personal history of irradiation; Z79.899 Other long term (current) drug therapy
CPT/HCPCS: 36591; 80053; 85025; 87635; 99215

== ENCOUNTER → 2020-06-19 10:36 | Day surgery (SDC) | payer MEDICARE, BC, SELFPAY ==
[2020-06-19 11:13] VITALS: BMI 31.1
[2020-06-19 12:37] LABS: INR 0.94 (0.8-1.2)
--- NOTE | 2020-06-19 13:14 | PM.PROC ---
Procedure Note: Date of procedure: 06/19/20 Pre-procedure diagnosis: Right pleural effusion Post-procedure diagnosis: same Procedure: Ultrasound-guided right side thoracentesis: Bedside ultrasound examination Showed resolving right pleural effusion compared to ultrasound examination on 06/11/2020. Aborted procedure and recommended patient to continue steroids for radiation pneumonitis. Op report anesthesia: None Pathology: none sent Condition: stable Disposition: same day Coding Level of Care Code Acute Electrical Instrumentation Technician for Tila Rubalcava
--- NOTE | 2020-06-19 14:07 | PC.NURSE ---
No fluid noted on ultrasound by Dr Bettencourt. No thoracentesis needed at this time. Discussed results with patient and patient was dismissed with all personal belongings. Denies needs at this time.
== END ==
PROVIDERS: PCP Family Medicine; Visit Provider Internal Medicine Pulmonary Disease
DX: J90 Pleural effusion, not elsewhere classified (principal)
CPT/HCPCS: 32555; 36415; 85610

== ENCOUNTER 2020-07-20 09:57 | Outpatient (CLI) | payer MEDICARE, BC, SELFPAY ==
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
== END 2020-07-20 09:58 | disposition home or self-care (01) ==
LOC: ONCMED 09:58
PROVIDERS: PCP Family Medicine; Visit Provider Internal Medicine Hematology & Oncology
DX: C34.11 Malignant neoplasm of upper lobe, right bronchus or lung (principal); C77.0 Secondary and unspecified malignant neoplasm of lymph nodes of head, face and neck; C79.31 Secondary malignant neoplasm of brain; J44.9 Chronic obstructive pulmonary disease, unspecified; I10 Essential (primary) hypertension; N18.9 Chronic kidney disease, unspecified; D70.1 Agranulocytosis secondary to cancer chemotherapy; T45.1X5A Adverse effect of antineoplastic and immunosuppressive drugs, initial encounter; Z79.899 Other long term (current) drug therapy
CPT/HCPCS: 99214

== ENCOUNTER 2020-08-05 10:49 | Outpatient (CLI) | payer MEDICARE, BC, SELFPAY ==
--- NOTE | 2020-08-05 11:00 | CT_ITS ---
WS: [id number] CT CHEST TECHNIQUE: Noncontrast CT of the chest with coronal and sagittal reformatted images. CLINICAL INFORMATION: rule on pneumonitis COMPARISON: CT chest June 05, 2020 DLP: [id number] scans at [facility] use at least one of these dose optimization techniques: automat ed exposure control; mA and/or kV adjustment per patient size (includes targeted exams where dose is matched to clinical indication); or iterative reconstruction. FINDINGS: Moderate chronic emphysematous changes. Small right pleural effusion has improved compared to previou s. Small pericardial effusion. Aortic calcification. Coronary calcification. Calcified mediastinal an d subcarinal lymph nodes. Again seen are interstitial and airspace infiltrates within the right upper lobe and right lower lobe slightly improved since the prior examination. Increased soft tissue in the right hilum measuring 2. 6 x 2.1 CM. This is new compared to the prior studies and is nonspecific. This may be infectious or i nflammatory but recurrent/progressed disease is an additional consideration. This can be further eval uated PET/CT and/or short interval follow-up. Associated pleural thickening along the right fissures. Previously described ovoid nodular opacity right upper lobe along the fissure stable since the recent examinations and partially obscured by airspace infiltrates measuring 2.1 x 1.3 CM. Left lung is well aerated. Calcified granuloma left lower lobe. Adrenal glands are normal. Normal GE junction. CT/CT chest wo con [id number] IMPRESSION: 1. Small right pleural effusion with pleural thickening has improved compared to previous. 2. Small pericardial effusion. 3. Interstitial and airspace infiltrates within the right upper lobe and right lower lobe have improved compared to previous likely due to radiation pneumoni tis. Lymphangitic metastasis is not entirely excluded but less likely. 4. Previously described ovoid nodular opacity right upper lobe along the fissu re stable since the recent examinations and partially obscured by airspace infi ltrates measuring 2.1 x 1.3 CM. 5. Increasing soft tissue opacity along the right hilum and infrahilum measuri ng 2.6 x 2.1 cm may be infectious or inflammatory but new or progressed neoplas m is an additional consideration. This can be further evaluated PET/CT and/or s hort interval follow-up. 6. Left lung is well aerated. 7. No mediastinal lymphadenopathy.
== END 2020-08-05 10:50 | disposition home or self-care (01) ==
LOC: RADWPI 10:52
PROVIDERS: PCP Family Medicine; Visit Provider Internal Medicine Pulmonary Disease
DX: J70.0 Acute pulmonary manifestations due to radiation (principal); J90 Pleural effusion, not elsewhere classified; I31.3 Pericardial effusion (noninflammatory); R91.8 Other nonspecific abnormal finding of lung field
CPT/HCPCS: 71250

== ENCOUNTER 2020-08-17 14:52 | Outpatient (CLI) | payer MEDICARE, BC, SELFPAY ==
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
== END 2020-08-17 14:53 | disposition home or self-care (01) ==
PROVIDERS: PCP Family Medicine; Visit Provider Internal Medicine Hematology & Oncology
DX: C80.1 Malignant (primary) neoplasm, unspecified (principal); C77.8 Secondary and unspecified malignant neoplasm of lymph nodes of multiple regions; C79.31 Secondary malignant neoplasm of brain; C79.51 Secondary malignant neoplasm of bone; J44.9 Chronic obstructive pulmonary disease, unspecified; I10 Essential (primary) hypertension; N18.9 Chronic kidney disease, unspecified; J90 Pleural effusion, not elsewhere classified; Z79.899 Other long term (current) drug therapy; Z92.3 Personal history of irradiation; Z92.21 Personal history of antineoplastic chemotherapy
CPT/HCPCS: 99214

== ENCOUNTER 2020-10-26 13:10 | Outpatient (CLI) | payer MEDICARE, BC, SELFPAY ==
--- NOTE | 2020-10-26 13:30 | CT_ITS ---
WS: [id number] CT scan of the chest without IV contrast, additional two-dimensional coronal and sagittal reconstruct ion was performed. 10/26/2020 Clinical Data: J98.4 - Other disorders of lung Comparison: CT chest, 08/05/2020. DLP: 820.[address] scans at [facility] use at least one of these dose optimization techniques: automat ed exposure control; mA and/or kV adjustment per patient size (includes targeted exams where dose is matched to clinical indication); or iterative reconstruction. Findings: The small right pleural effusion remains the same. There are chronic fibrotic changes in the right up per lobe. The right hilar density has not changed and probably represents inflammatory or fibrotic ch lizabeth rather than recurrent tumor. The heart size is normal with a small pericardial effusion. The lef t lung shows no abnormalities. The pulmonary arterial system and thoracic aorta demonstrate no abnorm alities or dilatations. There is no axillary adenopathy. There are calcifications in the lymph nodes in the hilar and subcarinal regions. The trachea bifurcates into the bronchi. There is a small Port-A -Cath in the right chest with the tube ending in the superior vena cava. The upper abdomen shows no c hange from before. CT/CT chest wo con [id number] Impression: 1. Right pleural effusion and right pleural thickening unchanged. 2. Right hilar density unchanged. 3. No change in the chronic fibrosis in the right upper lobe. 4. Small pericardial effusion.
== END 2020-10-26 13:11 | disposition home or self-care (01) ==
PROVIDERS: PCP Family Medicine; Visit Provider Internal Medicine Pulmonary Disease
DX: J98.4 Other disorders of lung (principal); J90 Pleural effusion, not elsewhere classified; I31.3 Pericardial effusion (noninflammatory)
CPT/HCPCS: 71250

== ENCOUNTER 2020-11-18 13:27 | Outpatient (CLI) | payer MEDICARE, BC, SELFPAY ==
[2020-11-18 13:55] LABS: Basophils % 0.2 %; Eosinophils % 0.7 %; Hematocrit 42.5 % (42.0-52.0); Hemoglobin 13.2 g/dL (11.7-16.6); Lymphocytes # 0.4 10^3/uL (0.8-4.8); Lymphocytes % 6.8 %; Mean Corpuscular HGB Conc 31.1 g/dL (30.0-36.0); Mean Corpuscular Hemoglobin 29.5 pg (28.0-34.0); Mean Corpuscular Volume 95.1 fl (80-94); Mean Platelet Volume 10.5 fL (7.4-10.4); Monocytes # 0.5 10^3/uL (0.2-0.9); Monocytes % 7.3 %; Neutrophils # 5.18 10^3/uL (1.8-7.7); Neutrophils % 84.3 %; Nucleated Red Blood Cells % 0 %; Platelet Count 207 10^3/cmm (130-400); Red Blood Count 4.47 10^6/uL (4.1-5.3); Red Cell Distribution Width 12.6 % (12.1-15.1); White Blood Count 6.1 10^3/uL (4.0-10.0)
[2020-11-18 14:24] LABS: Alanine Aminotransferase 13 U/L (0-41); Albumin Level 4.2 g/dL (3.5-5.2); Alkaline Phosphatase 60 IU/L (40-130); Anion Gap 14.6 (5-19); Aspartate Amino Transferase 14 U/L (0-40); Blood Urea Nitrogen 14 mg/dL (8-23); Calcium 9.1 mg/dL (8.5-10.5); Carbon Dioxide 30 mmol/L (22-29); Chloride 98 mmol/L (98-107); Globulin 2.4 g/dL (1.3-4.6); Glucose 142 mg/dL (65-115); Osmolality Calculated 289 mOsm/kg (285-295); Potassium 4.6 mmol/L (3.5-5.1); Sodium 138 mmol/L (136-145); Total Bilirubin 0.4 mg/dL (0.15-1.2); Total Protein 6.6 g/dL (6.6-8.7)
[2020-11-18 14:48] LABS: Thyroid Stimulating Hormone 1.97 uIU/mL (0.27-4.20)
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
== END 2020-11-18 13:28 | disposition home or self-care (01) ==
LOC: ONCMED 13:30
PROVIDERS: PCP Family Medicine; Visit Provider Internal Medicine Hematology & Oncology
DX: C34.11 Malignant neoplasm of upper lobe, right bronchus or lung (principal); C79.31 Secondary malignant neoplasm of brain; Z92.3 Personal history of irradiation; Z79.899 Other long term (current) drug therapy
CPT/HCPCS: 36591; 80053; 84443; 85025; 99214

== ENCOUNTER 2020-12-22 14:16 | Outpatient (CLI) | payer MEDICARE, BC, SELFPAY | END 2020-12-22 14:17 | disposition home or self-care (01) | LOC: ONCMED 14:21 | PROVIDERS: PCP Family Medicine; Visit Provider Internal Medicine Hematology & Oncology | DX: Z45.2 Encounter for adjustment and management of vascular access device (principal) | CPT/HCPCS: 96523 ==

== ENCOUNTER 2021-01-19 11:50 | Outpatient (CLI) | payer MEDICARE, BC, SELFPAY | END 2021-01-19 11:51 | disposition home or self-care (01) | PROVIDERS: PCP Family Medicine; Visit Provider Internal Medicine Hematology & Oncology | DX: Z45.2 Encounter for adjustment and management of vascular access device (principal) | CPT/HCPCS: 96523 ==

== ENCOUNTER 2021-02-08 15:44 | Outpatient (CLI) | payer MEDICARE, BC, SELFPAY ==
--- NOTE | 2021-02-08 16:15 | CT_ITS ---
WS: [id number] CT CHEST WITHOUT INTRAVENOUS CONTRAST HISTORY: pleural effusion TECHNIQUE: Contiguous 5 mm axial imaging performed on the thorax. Coronal and sagittal reformats are submitted. All CT scans at [facility] [place] use at least one of these dose optimization techniques: automated exposure control; mA and/or kV adjustment per patient size (includes targeted exams where dose is matched to clinical indication); or iterative reconstruction. CONTRAST: None DLP: 1041.72 mGycm COMPARISON: 10/26/2020, 08/05/2020 Lungs and central airway: Continued bronchial wall thickening in the RIGHT upper lobe and centrally i nto the RIGHT lower lobe and bronchus intermedius. Circumferential bronchial thickening with addition al scattered opacifications extending into the lung parenchyma. Very similar to the prior examination from 08/05/2020 without improvement. Again noted is the increased soft tissue at the hilum extending along the superior fissure. Visually the soft tissue has increased since 10/26/2020. Seen best on the s agittal reformats is increased soft tissue extending along the major fissure. This is only a very sli ght increase. The additional nodules in the RIGHT upper lobe are stable. Pleura: RIGHT pleural effusion although small has increased in size since the prior study. Heart and pericardium: Normal size heart. Mild thickening around the pericardium versus a small amoun t of fluid which is unchanged. Mediastinum and nawaf: No enlarging or new lymph nodes identified. Vessels: Mild atherosclerosis aorta. Normal size pulmonary artery. Chest wall and lower neck: RIGHT subclavian Mediport is present. Upper abdomen: No adrenal mass. Osseous structures: Mild increase in thoracic kyphosis. CT/CT chest wo con [id number] IMPRESSION: 1. Mild increase in size of the RIGHT pleural effusion since 10/26/2020. 2. Although subtle there does appear to be a very slight increase in the soft tissue opacification at the RIGHT hilum extending along the superior fissure. C annot exclude early neoplastic recurrence. Some of these changes are post radia tion induced lung disease with areas of atelectasis. 3. No new or increasing lymph nodes. 4. Close chest CT and/or PET CT follow-up recommended.
== END 2021-02-08 15:45 | disposition home or self-care (01) ==
PROVIDERS: PCP Family Medicine; Visit Provider Internal Medicine Pulmonary Disease
DX: J98.4 Other disorders of lung (principal); J90 Pleural effusion, not elsewhere classified
CPT/HCPCS: 71250

== ENCOUNTER → 2021-03-05 14:58 | Day surgery (SDC) | payer MEDICARE, BC, SELFPAY ==
[2021-03-05 15:14] VITALS: BP 176/91; PULSE 72; RESP 18; TEMP 36.6; O2SAT 96; BMI 33.9
[2021-03-05 15:17] VITALS: BP 176/91; PULSE 72; RESP 18; TEMP 36.6; O2SAT 96; BMI 34.8
--- NOTE | 2021-03-05 15:37 | PC.NURSE ---
David not performed, pocket of fluid not located in a safe place to insert the needle per Dr. Bettencourt.
--- NOTE | 2021-03-05 18:04 | PM.MISC ---
Miscellaneous Note Purpose of Documentation: Right thoracentesis Cancellation note: - Today bedside ultrasound showed Free-flowing moderate right pleural effusion but no good pocket when patient takes a deep breath. Will defer thoracentesis today.I think this is inflammatory fluid and patient also does not have any signs and symptoms of sepsis. PET/CT did not show any activity in pleural cavity. I will check with ultrasound during next visit and meanwhile recommended patient to continue prednisone 5 mg daily and Lasix 20 mg daily.
== END ==
PROVIDERS: PCP Family Medicine; Visit Provider Internal Medicine Pulmonary Disease
DX: J90 Pleural effusion, not elsewhere classified (principal); Z53.8 Procedure and treatment not carried out for other reasons

== ENCOUNTER 2021-03-17 09:54 | Outpatient (CLI) | payer MEDICARE, BC, SELFPAY ==
--- NOTE | 2021-03-17 13:37 | PFTS_ITS ---
Date of Study:03/17/21 Date of Dictation: MECHANICS: Forced vital capacity (FVC) is reduced. Forced expiratory volume in one second (FEV1) is reduced. FEV1/FVC is reduced. FLOW VOLUME LOOP: Reduced flow at all lung volumes with significant scooping. Visible hesitation natacha during forced expiratory flow. LUNG VOLUMES: Total lung capacity (TLC) is normal. Residual volume (RV) is increased. DIFFUSING CAPACITY FOR CARBON MONOXIDE: Moderately reduced. INTERPRETATION: The prebronchodilator spirometry is consistent with severe airflow obstruction. No postbronchodilator spirometry was performed. Lung volumes are consistent with air trapping. Gas exchange (DLCO) is moderately reduced. MTDD
== END 2021-03-17 09:55 | disposition home or self-care (01) ==
LOC: RT 09:55
PROVIDERS: PCP Family Medicine; Visit Provider Internal Medicine Pulmonary Disease
DX: J44.9 Chronic obstructive pulmonary disease, unspecified (principal); R06.00 Dyspnea, unspecified
CPT/HCPCS: 87635; 94010; 94618; 94726; 94729

== ENCOUNTER 2021-03-22 13:45 | Outpatient (CLI) | payer MEDICARE, BC, SELFPAY ==
--- NOTE | 2021-03-22 14:15 | USCV_ITS ---
Blu Howe Age: 75 Gender: M : 1945 Exam Date: 03/22/2021 14:08 Ordering Phys: Constantine Bettencourt MD Technologist: REGGIE Exam Location: [facility] [place] Indication: hx RIGHT lung CA dx 2019; s/p resection of CA, chemo, rad therapy. c/o SOB since dx with lung CA. Patient is a [place] and never had any murmur or heart problem. No hx cardiac intervention per patient. BP: / HR: 57 Rhythm: Sinus Technical Quality: Adequate MEASUREMENTS (Male / Female) Normal Values 2D ECHO LVOT Diameter 2.0 cm LV Ejection Fraction MOD 2C 66.9 % LV Ejection Fraction 2C AL 69.2 % LA Diameter 4.5 cm LA Width 4.3 cm LA Height 5.4 cm RA Width 3.8 cm RA Height 4.0 cm Aorta at Sinotubular Diameter 3.0 cm M-MODE Aortic Annulus Diameter 3.4 cm LA Ao Ratio MM 1.4 MV E Point Septal Separation 0.5 cm DOPPLER AV Peak Velocity 147.0 cm/s LVOT Peak Velocity 104.0 cm/s AV Area Cont Eq vti 2.3 cm squared AV Area Cont Eq pk 2.2 cm squared MV Area PHT 3.1 cm squared Mitral E to A Ratio 1.0 MV E' Velocity 46.0 cm/s Mitral E to MV E' Ratio 11.7 Mitral E to LV E' Lateral Ratio 9.8 Mitral E to LV E' Septal Ratio 14.8 TR Peak Velocity 249.0 cm/s TR Peak Gradient 24.8 mmHg TV Peak E Velocity 39.0 cm/s Right Atrial Pressure 5.0 mmHg Pulmonary Artery Systolic Pressu 29.8 mmHg PV Peak Velocity 97.0 cm/s RV Acceleration Time 0.1 s RV Ejection Time 0.4 s RV AcT/ET 0.2 FINDINGS Left Ventricle Normal left ventricular size and systolic function, EF 62 %. No regional wall motion abnormalities. Right Ventricle The right ventricle is normal in size and function. Right Atrium The right atrium is normal in size. Left Atrium The left atrium is normal in size. Mitral Valve Mild mitral valve regurgitation. Aortic Valve Thickened aortic valve. Tricuspid Valve Trace tricuspid valve regurgitation. Pulmonic Valve Pulmonic valve not well visualized. Pericardium Small echo-free space anteriorly and posteriorly Aorta Normal ascending aorta dimension. CONCLUSIONS Normal left ventricular size and systolic function, EF 62 %. No regional wall motion abnormalities. Mild mitral and trace of tricuspid regurgitation Thickened aortic valve. Trivial pericardial effusion. There are no intracardiac masses. Compared to the study from 03/03/2020, there may not be a significant change Dr Uriel López MD FACC (Electronically Signed) Final Date: 23 March 2021 23:16 S
== END 2021-03-22 13:46 | disposition home or self-care (01) ==
LOC: RAD 13:46
PROVIDERS: PCP Family Medicine; Visit Provider Internal Medicine Pulmonary Disease
DX: R06.02 Shortness of breath (principal); I08.3 Combined rheumatic disorders of mitral, aortic and tricuspid valves
CPT/HCPCS: 93306

== ENCOUNTER 2021-03-23 13:16 | Outpatient (CLI) | payer MEDICARE, BC, SELFPAY ==
[2021-03-23 13:44] LABS: Basophils % 0.4 %; Eosinophils # 0.1 10^3/uL (0.0-0.8); Eosinophils % 2.2 %; Hematocrit 42.9 % (42.0-52.0); Hemoglobin 13.4 g/dL (11.7-16.6); Lymphocytes # 0.4 10^3/uL (0.8-4.8); Mean Corpuscular HGB Conc 31.2 g/dL (30.0-36.0); Mean Corpuscular Hemoglobin 28.1 pg (28.0-34.0); Mean Corpuscular Volume 89.9 fl (80-94); Monocytes # 0.6 10^3/uL (0.2-0.9); Monocytes % 11.7 %; Neutrophils # 4.23 10^3/uL (1.8-7.7); Neutrophils % 77.2 %; Nucleated Red Blood Cells % 0 %; Platelet Count 207 10^3/cmm (130-400); Red Blood Count 4.77 10^6/uL (4.1-5.3); Red Cell Distribution Width 13.4 % (12.1-15.1); White Blood Count 5.5 10^3/uL (4.0-10.0)
[2021-03-23 14:02] LABS: Alanine Aminotransferase 11 U/L (0-41); Albumin Level 4.4 g/dL (3.5-5.2); Alkaline Phosphatase 70 IU/L (40-130); Anion Gap 15.8 (5-19); Aspartate Amino Transferase 12 U/L (0-40); Blood Urea Nitrogen 18 mg/dL (8-23); Calcium 8.7 mg/dL (8.5-10.5); Carbon Dioxide 31 mmol/L (22-29); Chloride 99 mmol/L (98-107); Globulin 2.6 g/dL (1.3-4.6); Glucose 106 mg/dL (65-115); Osmolality Calculated 294 mOsm/kg (285-295); Potassium 4.8 mmol/L (3.5-5.1); Sodium 141 mmol/L (136-145); Total Bilirubin 0.5 mg/dL (0.15-1.2)
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
== END 2021-03-23 13:17 | disposition home or self-care (01) ==
LOC: ONCMED 13:21
PROVIDERS: PCP Family Medicine; Visit Provider Internal Medicine Hematology & Oncology
DX: J90 Pleural effusion, not elsewhere classified (principal); R59.0 Localized enlarged lymph nodes; Z79.52 Long term (current) use of systemic steroids; R06.00 Dyspnea, unspecified
CPT/HCPCS: 80053; 85025; 96523; 99214

== ENCOUNTER 2021-04-23 11:01 | Outpatient (CLI) | payer MEDICARE, BC, SELFPAY | END 2021-04-23 11:02 | disposition home or self-care (01) | LOC: ONCMED 11:06 | PROVIDERS: PCP Family Medicine; Visit Provider Internal Medicine Hematology & Oncology | DX: Z45.2 Encounter for adjustment and management of vascular access device (principal) | CPT/HCPCS: 96523 ==

== ENCOUNTER 2021-05-24 | Outpatient (CLI) | payer MEDICARE, BC, SELFPAY | END 2021-05-24 23:59 | disposition home or self-care (01) | LOC: ONCMED 10-25 11:45 | PROVIDERS: PCP Family Medicine; Visit Provider Internal Medicine Hematology & Oncology | DX: Z45.2 Encounter for adjustment and management of vascular access device (principal) | CPT/HCPCS: 96523 ==

== ENCOUNTER 2021-06-10 09:11 | Outpatient (CLI) | payer MEDICARE, BC, SELFPAY ==
--- NOTE | 2021-06-10 09:24 | XRR_ITS ---
PROCEDURE INFORMATION: Exam: XR Chest Exam date and time: 06/10/2021 9:24 AM Age: 75 years old Clinical indication: Condition or disease; Lung condition and disease; Pleural effusion; Other: Not specified; Patient HX: HX right lung cancer; Additional info: F/u pleural effusion TECHNIQUE: Imaging protocol: XR of the chest. Views: 2 views. COMPARISON: CT chest con [id number] 02/08/2021 4:31 PM FINDINGS: Tubes, catheters and devices: The [id number] is stable since the CT scan. Lungs: The left lung remains clear. Extensive density appears similar to the previous examinations CT scan within the right upper lobe. Pleural spaces: There is blunting of the right costophrenic angle in the previously was a pleural effusion. Heart/Mediastinum: Unremarkable. No cardiomegaly. Bones/joints: Unremarkable. XR/XR chest 2V* [id number] IMPRESSION: Persistent right pleural effusion however, is not entirely possible to compare CT scan which is done in the supine position versus an upright chest x-ray.
== END 2021-06-10 09:12 | disposition home or self-care (01) ==
LOC: RAD 09:15
PROVIDERS: PCP Family Medicine; Visit Provider Internal Medicine Pulmonary Disease
DX: J90 Pleural effusion, not elsewhere classified (principal); J44.9 Chronic obstructive pulmonary disease, unspecified; J70.0 Acute pulmonary manifestations due to radiation; Z29.8 Encounter for other specified prophylactic measures; J84.89 Other specified interstitial pulmonary diseases; C34.11 Malignant neoplasm of upper lobe, right bronchus or lung; Z87.891 Personal history of nicotine dependence; R06.00 Dyspnea, unspecified; I10 Essential (primary) hypertension
CPT/HCPCS: 71046; 99214

== ENCOUNTER 2021-06-21 13:44 | Outpatient (CLI) | payer MEDICARE, BC, SELFPAY ==
[2021-06-21 14:10] LABS: Basophils % 0.5 %; Eosinophils # 0.1 10^3/uL (0.0-0.8); Eosinophils % 2.1 %; Hematocrit 43.3 % (42.0-52.0); Hemoglobin 13.4 g/dL (11.7-16.6); Lymphocytes # 0.6 10^3/uL (0.8-4.8); Lymphocytes % 15.8 %; Mean Corpuscular HGB Conc 30.9 g/dL (30.0-36.0); Mean Corpuscular Hemoglobin 27.8 pg (28.0-34.0); Mean Corpuscular Volume 89.8 fl (80-94); Mean Platelet Volume 10.7 fL (7.4-10.4); Monocytes # 0.7 10^3/uL (0.2-0.9); Monocytes % 17.9 %; Neutrophils # 2.36 10^3/uL (1.8-7.7); Neutrophils % 63.2 %; Nucleated Red Blood Cells % 0 %; Platelet Count 256 10^3/cmm (130-400); Red Blood Count 4.82 10^6/uL (4.1-5.3); Red Cell Distribution Width 13.5 % (12.1-15.1); White Blood Count 3.7 10^3/uL (4.0-10.0)
[2021-06-21 14:31] LABS: Alanine Aminotransferase 8 U/L (0-41); Albumin Level 4.5 g/dL (3.5-5.2); Alkaline Phosphatase 86 IU/L (40-130); Anion Gap 14.7 (5-19); Aspartate Amino Transferase 13 U/L (0-40); Blood Urea Nitrogen 13 mg/dL (8-23); Calcium 9.4 mg/dL (8.5-10.5); Carbon Dioxide 29 mmol/L (22-29); Chloride 99 mmol/L (98-107); Globulin 2.2 g/dL (1.3-4.6); Glucose 106 mg/dL (65-115); Osmolality Calculated 287 mOsm/kg (285-295); Potassium 4.7 mmol/L (3.5-5.1); Sodium 138 mmol/L (136-145); Total Bilirubin 0.4 mg/dL (0.15-1.2); Total Protein 6.7 g/dL (6.6-8.7)
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
== END 2021-06-21 13:45 | disposition home or self-care (01) ==
LOC: ONCMED 13:48
PROVIDERS: PCP Family Medicine; Visit Provider Internal Medicine Hematology & Oncology
DX: C34.11 Malignant neoplasm of upper lobe, right bronchus or lung (principal); C79.31 Secondary malignant neoplasm of brain; I10 Essential (primary) hypertension; I73.9 Peripheral vascular disease, unspecified; J44.9 Chronic obstructive pulmonary disease, unspecified; N18.9 Chronic kidney disease, unspecified; J90 Pleural effusion, not elsewhere classified; Z79.899 Other long term (current) drug therapy
CPT/HCPCS: 36591; 71046; 80053; 85025; 99214

== ENCOUNTER 2021-06-21 14:08 | Outpatient (CLI) | payer MEDICARE, BC, SELFPAY ==
--- NOTE | 2021-06-21 14:20 | XR_ITS ---
WS: [id number] Exam: XR chest 2V* [id number] Date/Time of Exam: 06/21/2021 2:25 PM Reason For Exam: f/u pleural effusion Comparison 06/10/2021. The lungs are fully inflated. Heart size is top limits normal. The mediastinum is not widened. Right subclavian central line ends at the cavoatrial junction. Chronic changes of atelectasis seen in the r ight upper lobe. Blunted right costophrenic angle unchanged that may represent pleural thickening or small effusion. Right lower lobe atelectasis unchanged. Left lung is generally clear. Bony structures are intact. XR/XR chest 2V* [id number] IMPRESSION: 1. Chest radiograph showing no significant change since the prior study.
== END 2021-06-21 14:09 | disposition home or self-care (01) ==
LOC: RAD 14:10
PROVIDERS: PCP Family Medicine; Visit Provider Internal Medicine Pulmonary Disease
DX: J90 Pleural effusion, not elsewhere classified (principal)
CPT/HCPCS: 71046

== ENCOUNTER 2021-08-05 06:00 | Outpatient (CLI) | payer MEDICARE, BC, SELFPAY | END 2021-08-05 06:01 | disposition home or self-care (01) | LOC: RAD 08-10 08:17 | PROVIDERS: PCP Family Medicine; Visit Provider Internal Medicine Pulmonary Disease | DX: J90 Pleural effusion, not elsewhere classified (principal) | CPT/HCPCS: 99214 ==

== ENCOUNTER → 2021-08-05 09:03 | Outpatient (BNVA) | payer MEDICARE, BC, SELFPAY | PROVIDERS: PCP Family Medicine; Visit Provider Internal Medicine Pulmonary Disease | DX: J44.9 Chronic obstructive pulmonary disease, unspecified (principal); C34.11 Malignant neoplasm of upper lobe, right bronchus or lung; J70.0 Acute pulmonary manifestations due to radiation; J84.89 Other specified interstitial pulmonary diseases; R06.02 Shortness of breath; Z29.8 Encounter for other specified prophylactic measures; R06.00 Dyspnea, unspecified; J90 Pleural effusion, not elsewhere classified; Z87.891 Personal history of nicotine dependence; I10 Essential (primary) hypertension | CPT/HCPCS: 71046 ==

== ENCOUNTER 2021-08-10 05:56 | Day surgery (SDC) | payer MEDICARE, BC, SELFPAY ==
[2021-08-09 08:14] VITALS: BMI 4686.6
[2021-08-10 06:21] VITALS: BP 135/69; PULSE 59; RESP 18; TEMP 36.2; O2SAT 96
--- NOTE | 2021-08-10 08:03 | XR_ITS ---
WS: [id number] PORTABLE CHEST HISTORY: Postthoracentesis. COMPARISON: 08/05/2021 No pneumothorax. Volume loss and posttreatment changes are stable throughout the RIGHT lung. No pleural effusion. RIGH T subclavian Mediport with tip in distal SVC is unchanged. Cardiac size: Normal. Mediastinum/Aorta: Mild atherosclerosis aorta. No osseous abnormality seen. XR/XR chest 1V portable [id number] IMPRESSION: 1. No pneumothorax status post thoracentesis. 2. Volume loss and post treatment changes of fibrosis in the RIGHT thorax. 3. No pleural effusion.
[2021-08-10 08:25] VITALS: BP 133/67; PULSE 58; RESP 18; O2SAT 93
[2021-08-10 09:18] LABS: Body Fluid Polynuclear #Cells 0.012; Body Fluid WBC 761 /uL; Monocytes # Body Fluid 0.749
[2021-08-10 09:30] LABS: Albumin Body Fluid 3.2 g/dL; Apprearance, Body Fluid CLEAR; Color, Body Fluid YELLOW; Creatinine Body Fluid 1.24 (0.7-1.2); LDH Pleural Fluid 105 U/L; Total Protein Pleural Fluid 3.9 g/dL; Triglycerides, Pleural Fluid 18 mg/dL
--- NOTE | 2021-08-10 17:18 | PM.OUTPTPROC ---
Office Procedure Procedure performed by: AURORA LECHUGA MD Comments/Details: Pulmonary & Critical Care Medicine Procedure - Ultrasound guided Thoracentesis Procedure: Ultrasound guided Thoracentesis Indication: Right pleural effusion [employer] Grader(s): Aurora Lechuga MD Consent: Signed and placed in chart Anesthesia: 10 cc 1% lidocaine without epinephrine Description: Right chest X ray reviewed and Pleural effusion was localized using ultrasound guidance and the appropriate site was marked accordingly. A time out was performed. My hands were washed immediately prior to the procedure. I wore a surgical cap, mask with protective eyewear, sterile gown and sterile gloves throughout the procedure. The patient was placed in appropriate position, area of interest was sterilized with chlorhexidine skin prep and draped in a sterile manner. 1% lidocaine was used to anesthesize the skin, subcutaneous tissue, superior aspect of the rib periosteum and parietal pleura. A finder needle was then introduced over the superior aspect of the rib to locate the pleural fluid; 5 CC straw colored fluid was aspirated. A 10-blade scalpel was used to alice the skin at the insertion site. The [id number] needle was then introduced through the skin incision into the pleural space using negative aspiration pressure and the red colormetric indicator to confirm appropriate positioning of the needle. The thoracentesis catheter was then threaded without difficulty. 1200 CC straw colored fluid was removed without difficulty. The catheter was then removed. No immediate complications were noted during the procedure. The fluid will be sent for studies. Estimated blood loss is 5 - 10 CC. Ultrasound guidance used: Yes. Image saved to ultrasound machine if. EBL: 5-10 cc Complications: No PCXR: A post-procedure chest x-ray did not show pneumothorax.
== END 2021-08-10 08:48 | disposition home or self-care (01) ==
LOC: GILAB 05:59
PROVIDERS: PCP Family Medicine; Visit Provider Internal Medicine Pulmonary Disease
PROC: (CPT 32554; principal; 2021-08-10 07:00)
DX: J90 Pleural effusion, not elsewhere classified (principal)
CPT/HCPCS: 32554; 71045; 80503; 82042; 82150; 82570; 82945; 83615; 83986; 84157; 84478; 87070; 87075; 87205; 88108; 88305; 89050

== ENCOUNTER 2021-08-12 11:52 | Outpatient (CLI) | payer MEDICARE, BC, SELFPAY ==
--- NOTE | 2021-08-12 12:05 | XR_ITS ---
WS: [id number] Chest 2 views, 08/12/2021 Clinical Data: chest soreness post thoracentesis 2 days ago Comparison: Portable chest, 08/10/2021. Findings: No nodules or masses are seen. There is a small right effusion. The scarring throughout the right lung remains the same. The right Port-A-Cath remains in the same position. The interstitial sc arring throughout the left lung is the same. The heart is not enlarged. The aortic arch and descendin g thoracic aorta show calcification and mild tortuosity. The heart is normal. The pulmonary vasculari ty is not increased. No pneumonia or pneumothorax is seen. XR/XR chest 2V* [id number] Impression: 1. Development of small right pleural effusion. 2. No change in bilateral lung scarring.
== END 2021-08-12 11:53 | disposition home or self-care (01) ==
LOC: RAD 11:56
PROVIDERS: PCP Family Medicine; Visit Provider Internal Medicine Pulmonary Disease
DX: J90 Pleural effusion, not elsewhere classified (principal)
CPT/HCPCS: 71046

== ENCOUNTER 2021-09-01 15:01 | Oncology outpatient (recurring) (ONCR) | payer MEDICARE, BC, SELFPAY ==
[2021-09-01 15:07] VITALS: BP 163/76; PULSE 61; RESP 16; TEMP 36.1; O2SAT 95
== END 2021-09-23 23:59 | disposition home or self-care (01) ==
LOC: ONCMED 15:01
PROVIDERS: PCP Family Medicine; Referring Provider Thoracic Surgery (Cardiothoracic Vascular Surgery); Visit Provider Internal Medicine Hematology & Oncology
DX: Z45.2 Encounter for adjustment and management of vascular access device (principal)
CPT/HCPCS: 96523

== ENCOUNTER 2021-09-24 08:04 | Outpatient (RCR) | payer MEDICARE, BC, SELFPAY | END 2021-10-24 23:59 | disposition home or self-care (01) | LOC: PULRHB 08:04 | PROVIDERS: PCP Family Medicine; Visit Provider Internal Medicine Pulmonary Disease | DX: J44.9 Chronic obstructive pulmonary disease, unspecified (principal) | CPT/HCPCS: 94626 ==

== ENCOUNTER 2021-10-14 09:22 | Oncology outpatient (recurring) (ONCR) | payer MEDICARE, BC, SELFPAY ==
[2021-10-14 10:05] LABS: Basophils % 0.3 %; Eosinophils # 0.1 10^3/uL (0.0-0.8); Eosinophils % 1.7 %; Hematocrit 39.1 % (42.0-52.0); Hemoglobin 12.1 g/dL (11.7-16.6); Lymphocytes # 0.4 10^3/uL (0.8-4.8); Lymphocytes % 12.5 %; Mean Corpuscular HGB Conc 30.9 g/dL (30.0-36.0); Mean Corpuscular Hemoglobin 26.5 pg (28.0-34.0); Mean Corpuscular Volume 85.6 fl (80-94); Mean Platelet Volume 10.9 fL (7.4-10.4); Monocytes # 0.6 10^3/uL (0.2-0.9); Monocytes % 17.6 %; Neutrophils # 2.39 10^3/uL (1.8-7.7); Neutrophils % 67.6 %; Nucleated Red Blood Cells % 0 %; Platelet Count 178 10^3/cmm (130-400); Red Blood Count 4.57 10^6/uL (4.1-5.3); Red Cell Distribution Width 14.5 % (12.1-15.1); White Blood Count 3.5 10^3/uL (4.0-10.0)
[2021-10-14 10:27] LABS: Alanine Aminotransferase 11 U/L (0-41); Alkaline Phosphatase 83 IU/L (40-130); Anion Gap 13.2 (5-19); Aspartate Amino Transferase 15 U/L (0-40); Blood Urea Nitrogen 17 mg/dL (8-23); Calcium 8.7 mg/dL (8.5-10.5); Carbon Dioxide 28 mmol/L (22-29); Chloride 99 mmol/L (98-107); Globulin 2.3 g/dL (1.3-4.6); Glucose 102 mg/dL (65-115); Osmolality Calculated 284 mOsm/kg (285-295); Potassium 4.2 mmol/L (3.5-5.1); Sodium 136 mmol/L (136-145); Total Bilirubin 0.4 mg/dL (0.15-1.2); Total Protein 6.3 g/dL (6.6-8.7)
== END 2021-10-24 23:59 | disposition home or self-care (01) ==
PROVIDERS: Nurse Practitioner Family; PCP Family Medicine; Referring Provider Thoracic Surgery (Cardiothoracic Vascular Surgery); Visit Provider Internal Medicine Hematology & Oncology
DX: Z45.2 Encounter for adjustment and management of vascular access device (principal); C34.11 Malignant neoplasm of upper lobe, right bronchus or lung; Z92.21 Personal history of antineoplastic chemotherapy; Z92.3 Personal history of irradiation; Z87.891 Personal history of nicotine dependence; J44.9 Chronic obstructive pulmonary disease, unspecified; N18.9 Chronic kidney disease, unspecified; I12.9 Hypertensive chronic kidney disease with stage 1 through stage 4 chronic kidney disease, or unspecified chronic kidney disease
CPT/HCPCS: 36591; 80053; 85025; 99214

== ENCOUNTER 2021-10-25 06:00 | Outpatient (RCR) | payer MEDICARE, BC, SELFPAY | END 2021-11-24 23:59 | disposition home or self-care (01) | LOC: PULRHB 06:00 | PROVIDERS: PCP Family Medicine; Visit Provider Internal Medicine Pulmonary Disease | DX: J44.9 Chronic obstructive pulmonary disease, unspecified (principal) | CPT/HCPCS: 94626 ==

== ENCOUNTER 2021-11-25 06:00 | Outpatient (RCR) | payer MEDICARE, BC, SELFPAY | END 2021-12-24 23:59 | disposition home or self-care (01) | LOC: PULRHB 06:00 | PROVIDERS: PCP Family Medicine; Visit Provider Internal Medicine Pulmonary Disease | DX: J44.9 Chronic obstructive pulmonary disease, unspecified (principal) | CPT/HCPCS: 94626 ==

== ENCOUNTER → 2021-12-13 10:10 | Outpatient (BNVA) | payer MEDICARE, BC, SELFPAY | PROVIDERS: PCP Family Medicine; Visit Provider Internal Medicine Pulmonary Disease | DX: R06.00 Dyspnea, unspecified (principal); J44.9 Chronic obstructive pulmonary disease, unspecified; J70.0 Acute pulmonary manifestations due to radiation; J84.89 Other specified interstitial pulmonary diseases; J90 Pleural effusion, not elsewhere classified; Z92.3 Personal history of irradiation; Z92.21 Personal history of antineoplastic chemotherapy; Z85.118 Personal history of other malignant neoplasm of bronchus and lung | CPT/HCPCS: 99214 ==

== ENCOUNTER 2021-12-15 11:57 | Outpatient (CLI) | payer MEDICARE, BC, SELFPAY ==
--- NOTE | 2021-12-15 12:18 | XRR_ITS ---
PROCEDURE INFORMATION: Exam: XR Chest Exam date and time: 12/15/2021 12:35 PM Age: 76 years old Clinical indication: Condition or disease; Lung condition and disease; Pleural effusion; Other: Not specified; Prior surgery; Surgery type: Port; Additional info: Right pleural effusion TECHNIQUE: Imaging protocol: Radiologic exam of the chest. Views: 2 views. COMPARISON: CR XR chest 2V* [id number] 08/12/2021 12:09 PM FINDINGS: Tubes, catheters and devices: A MediPort catheter is present with the tip projecting in the SVC. Lungs: There is volume loss and prominent fibrosis in the right lung which is unchanged. The left lung is grossly clear. Pleural spaces: Unremarkable. No pleural effusion. No pneumothorax. Heart/Mediastinum: Unremarkable. No cardiomegaly. Bones/joints: Unremarkable. XR/XR chest 2V* [id number] IMPRESSION: Stable chest. There is right lung volume loss with prominence fibrosis.
== END 2021-12-15 11:58 | disposition home or self-care (01) ==
LOC: RAD 12:01
PROVIDERS: PCP Family Medicine; Visit Provider Internal Medicine Pulmonary Disease
DX: J90 Pleural effusion, not elsewhere classified (principal)
CPT/HCPCS: 71046

== ENCOUNTER → 2021-12-20 12:48 | Outpatient (BNVA) | payer MEDICARE, BC, SELFPAY | PROVIDERS: PCP Family Medicine; Visit Provider Podiatrist Foot & Ankle Surgery | DX: G62.9 Polyneuropathy, unspecified (principal); B35.1 Tinea unguium; B35.3 Tinea pedis; M79.671 Pain in right foot; M79.672 Pain in left foot | CPT/HCPCS: 11721; 99203 ==

== ENCOUNTER 2021-12-25 06:00 | Outpatient (RCR) | payer MEDICARE, BC, SELFPAY | END 2022-01-24 23:59 | disposition home or self-care (01) | LOC: PULRHB 06:00 | PROVIDERS: PCP Family Medicine; Visit Provider Internal Medicine Pulmonary Disease | DX: J44.9 Chronic obstructive pulmonary disease, unspecified (principal) | CPT/HCPCS: 94626 ==

== ENCOUNTER 2022-01-07 06:36 | Outpatient (CLI) | payer MEDICARE, BC, SELFPAY ==
--- NOTE | 2022-01-07 | CT_ITS ---
WS: [id number] CT CHEST WITH INTRAVENOUS CONTRAST HISTORY: PLEURAL EFFUSION, prior RIGHT upper lobe neoplasm. TECHNIQUE: Contiguous 5 mm axial imaging performed on the thorax. Coronal and sagittal reformats are submitted. All CT scans at [facility] use at least one of these dose optimization techniques: automated exposure control; mA and/or kV adjustment per patient size (includes targeted exams where dose is matched to clinical indication); or iterative reconstruction. CONTRAST: Omnipaque 350; 80 mL IV. DLP: 768.19 mGy.cm COMPARISON: PET CT 02/24/[address] 02/08/2021 Lungs and central airway: Moderate to large RIGHT pleural effusion has increased in size since 021 fluid extends slightly along the fissures. There is compressive atelectasis of the RIGHT lung. No apparent change the soft tissue at the RIGHT hilum. Consistent with compressive atelectasis. Interst itial thickening extending from the RIGHT hilum is similar to the prior study of 02/08/2021. Chronic emphysema. No new pulmonary nodules. Pleura: Moderate to large RIGHT pleural effusion. Heart and pericardium: Heart size is normal. Small pericardial effusion measures up to 10 mm. Effusio n has slightly increased in size the prior study. Mediastinum and nawaf: No new or enlarging mediastinal or hilar lymph nodes. Vessels: Mild atherosclerosis aorta. Normal pulmonary artery. Moderate calcification extends into the LEFT subclavian and carotid arteries. Additional minimal calcification in the RIGHT innominate. Chest wall and lower neck: Right-sided central line. Upper abdomen: No adrenal mass. No liver mass identified. Visualized gallbladder is negative. Osseous structures: No destructive process. CT/CT chest w con* [id number] IMPRESSION: 1. Moderate to large RIGHT pleural effusion. Pleural effusion has increased in size since 02/08/2021. No enhancing pleural nodules are identified. 2. RIGHT hilar soft tissue is stable. No evidence for recurrent neoplasm evide nt by CT. No adenopathy. PET/CT may be helpful to evaluate for recurrent diseas e. 3. Centrilobular emphysema. 4. Small circumferential pericardial effusion. Has increased in size. 5. No adrenal mass. 6. Moderate atherosclerotic changes extend into the LEFT common carotid artery and the LEFT subclavian artery.
[2022-01-07 07:26] LABS: Blood Urea Nitrogen 13 mg/dL (8-23)
[2022-01-07] MEDS: iohexol 350 mg/mL 100 mL Btl IV (07:26)
== END 2022-01-07 06:37 | disposition home or self-care (01) ==
LOC: RAD 06:37
PROVIDERS: PCP Family Medicine; Visit Provider Thoracic Surgery (Cardiothoracic Vascular Surgery)
DX: J90 Pleural effusion, not elsewhere classified (principal); Z85.118 Personal history of other malignant neoplasm of bronchus and lung; J43.2 Centrilobular emphysema
CPT/HCPCS: 71260; 82565; 84520

== ENCOUNTER 2022-01-14 07:52 | Oncology outpatient (recurring) (ONCR) | payer MEDICARE, BC, SELFPAY ==
[2022-01-14 08:12] LABS: Basophils % 0.6 %; Eosinophils # 0.1 10^3/uL (0.0-0.8); Eosinophils % 3.3 %; Hematocrit 41.3 % (42.0-52.0); Hemoglobin 12.7 g/dL (11.7-16.6); Lymphocytes # 0.5 10^3/uL (0.8-4.8); Lymphocytes % 15.6 %; Mean Corpuscular HGB Conc 30.8 g/dL (30.0-36.0); Mean Corpuscular Hemoglobin 27.3 pg (28.0-34.0); Mean Corpuscular Volume 88.6 fl (80-94); Mean Platelet Volume 10.3 fL (7.4-10.4); Monocytes # 0.5 10^3/uL (0.2-0.9); Monocytes % 13.8 %; Neutrophils # 2.22 10^3/uL (1.8-7.7); Neutrophils % 66.4 %; Nucleated Red Blood Cells % 0 %; Platelet Count 214 10^3/cmm (130-400); Red Blood Count 4.66 10^6/uL (4.1-5.3); Red Cell Distribution Width 15.2 % (12.1-15.1); White Blood Count 3.3 10^3/uL (4.0-10.0)
[2022-01-14 08:37] LABS: Alanine Aminotransferase 9 U/L (0-41); Albumin Level 4.2 g/dL (3.5-5.2); Alkaline Phosphatase 99 U/L (40-130); Aspartate Amino Transferase 16 U/L (0-40); Blood Urea Nitrogen 13 mg/dL (8-23); Calcium 9.1 mg/dL (8.5-10.5); Carbon Dioxide 29 mmol/L (22-29); Chloride 101 mmol/L (98-107); Globulin 2.8 g/dL (1.3-4.6); Glucose 202 mg/dL (65-115); Osmolality Calculated 296 mOsm/kg (285-295); Sodium 140 mmol/L (136-145); Total Bilirubin 0.4 mg/dL (0.15-1.2)
[2022-01-14 08:56] LABS: Anion Gap 14.5 (5-19); Potassium 4.5 mmol/L (3.5-5.1)
== END 2022-01-24 23:59 | disposition home or self-care (01) ==
PROVIDERS: Nurse Practitioner Family; PCP Family Medicine; Referring Provider Thoracic Surgery (Cardiothoracic Vascular Surgery); Visit Provider Internal Medicine Hematology & Oncology
DX: Z08 Encounter for follow-up examination after completed treatment for malignant neoplasm; Z92.21 Personal history of antineoplastic chemotherapy; Z92.3 Personal history of irradiation; Z87.891 Personal history of nicotine dependence; J44.9 Chronic obstructive pulmonary disease, unspecified; N18.9 Chronic kidney disease, unspecified; I12.9 Hypertensive chronic kidney disease with stage 1 through stage 4 chronic kidney disease, or unspecified chronic kidney disease; J90 Pleural effusion, not elsewhere classified; Z85.118 Personal history of other malignant neoplasm of bronchus and lung; R06.02 Shortness of breath; J70.0 Acute pulmonary manifestations due to radiation; J84.89 Other specified interstitial pulmonary diseases; Z29.8 Encounter for other specified prophylactic measures; C34.11 Malignant neoplasm of upper lobe, right bronchus or lung
CPT/HCPCS: 36591; 80053; 85025; 99214

== ENCOUNTER 2022-01-19 10:56 | Day surgery (SDC) | payer MEDICARE, BC, SELFPAY ==
[2022-01-18 09:55] VITALS: BMI 32.6
[2022-01-19 11:36] VITALS: BP 153/62; PULSE 54; RESP 18; TEMP 36.2; O2SAT 94
--- NOTE | 2022-01-19 12:32 | XR_ITS ---
WS: [id number] Exam: XR chest 1V portable [id number] Date/Time of Exam: 01/19/2022 12:47 PM Reason For Exam: post thoracentesis Comparison 12/15/2021. Improved right basal pleural effusion since previous study. Extensive chronic fibrosis and scarring i n the right lung. The left lung is clear and fully expanded. Mild cardiac enlargement unchanged. A ri ght subclavian port ends at the cavoatrial junction. Bony structures are intact. XR/XR chest 1V portable [id number] IMPRESSION: 1. Right basal pleural effusion which show significant improvement since prior study. 2. Extensive chronic change in the right lung. No acute cardiopulmonary process noted. 3. Mild cardiac enlargement unchanged. Right subclavian port in satisfactory po sition.
[2022-01-19 14:17] LABS: Body Fluid Polynuclear #Cells 0.005; Body Fluid WBC 995 /uL
[2022-01-19 14:20] LABS: Apprearance, Body Fluid CLEAR; Color, Body Fluid YELLOW
[2022-01-19 14:45] LABS: Cyto Order Verification Order Verified
[2022-01-19 14:50] LABS: Amylase Body Fluid 47 U/L; Cholesterol Body Fluid 47 mg/dL (0-200); Fluid Alkaline Phos. 33 IU/L; LDH Body Fluid 96 U/L; Triglycerides Body Fluid 11 mg/dL (0-150); Uric Acid Body Fluid 7 mg/dL
[2022-01-19 15:10] LABS: Total Protein Pleural Fluid 4.3 g/dL
--- NOTE | 2022-01-20 19:32 | P.PCN_ITS ---
Outpatient Procedures Thoracentesis Consent signed and on chart: Yes Time Out Performed: Yes Procedure: therapeutic thoracentesis Location: Right Local anesthetic used: lidocaine 1% Bedside ultrasound used: yes, pleural effusion confirmed and location marked and yes, real-time guidance Preparation: sterile prep and drape and 10 blade used to make alice in skin Amount of fluid obtained (mL): 1,700 Fluid: other (Straw-colored) and sent to lab for analysis Post Procedure Exam: awake, alert, normal BP, normal HR and normal SpO2 Post-procedure chest x-ray ordered: Yes Estimated blood loss (mL): 5 Patient Tolerated Procedure: well and no complications Procedure Note: Procedure date: 01/19/2022 Pulmonary & Critical Care Medicine Procedure - Ultrasound guided Thoracentesis Procedure: Ultrasound guided right-sided thoracentesis Indication: Right pleural effusion Teacher Cclc(s): Constantine Del Castillor Consent: Signed and placed in chart Anesthesia: 10 cc 1% lidocaine without epinephrine Description: Right pleural effusion was localized using ultrasound guidance and the appropriate site was marked accordingly. A time out was performed. My hands were washed immediately prior to the procedure. I wore a surgical cap, mask with protective eyewear, sterile gown and sterile gloves throughout the procedure. The patient was placed in appropriate position, area of interest was sterilized with chlorhexidine skin prep and draped in a sterile manner. 1% lidocaine was used to anesthesize the skin, subcutaneous tissue, superior aspect of the rib periosteum and parietal pleura. A finder needle was then introduced over the superior aspect of the rib to locate the pleural fluid; 5 cc straw- colored colored fluid was aspirated. A 10-blade scalpel was used to alice the skin at the insertion site. The [id number]-[id number] needle was then introduced through the skin incision into the pleural space using negative aspiration pressure and the red colormetric indicator to confirm appropriate positioning of the needle. The thoracentesis catheter was then threaded without difficulty. 1700 CC straw-colored.colored fluid was removed without difficulty. The catheter was then removed. No immediate complications were noted during the procedure. The fluid will be sent for studies. Estimated blood loss is 5 - 10 CC. Ultrasound guidance used: Yes. EBL: 5 cc Complications: No PCXR: A post-procedure chest x-ray did not show pneumothorax.
== END 2022-01-19 13:06 | disposition home or self-care (01) ==
LOC: GILAB 11:00
PROVIDERS: PCP Family Medicine; Visit Provider Internal Medicine Pulmonary Disease
PROC: (CPT 32554; principal; 2022-01-19 11:45)
DX: J90 Pleural effusion, not elsewhere classified (principal)
CPT/HCPCS: 32554; 71045; 80503; 82042; 82150; 82465; 82945; 83615; 83986; 84075; 84157; 84315; 84478; 84560; 87015; 87070; 87075; 87116; 87205; 87206; 87801; 88108; 88305; 89050

== ENCOUNTER 2022-01-25 06:00 | Outpatient (RCR) | payer MEDICARE, BC, SELFPAY | END 2022-02-23 23:59 | disposition home or self-care (01) | LOC: PULRHB 06:00 | PROVIDERS: PCP Family Medicine; Visit Provider Internal Medicine Pulmonary Disease | DX: J44.9 Chronic obstructive pulmonary disease, unspecified (principal) | CPT/HCPCS: 94626 ==

== ENCOUNTER 2022-03-15 12:11 | Outpatient (CLI) | payer MEDICARE, BC, SELFPAY ==
--- NOTE | 2022-03-15 13:17 | XR_ITS ---
WS: [id number] Exam: XR chest 2V* [id number] Date/Time of Exam: 03/15/2022 1:18 PM Reason For Exam: increased SOB; recurrent pleural effusion Comparison 01/19/2022. Significant increase in right basal pleural effusion noted since previous exam. There is atelectasis of the lower and middle lobes of the right lung. Chronic right perihilar changes are seen. A right molina bclavian port ends in the lower one third of the SVC. The left lung is hyperinflated and clear. Chron ic changes in the middle left lung zone. No pleural effusions on the left. No pneumothorax. Bony stru ctures are intact. The mediastinum is normal in contour. XR/XR chest 2V* [id number] IMPRESSION: 1. Significant increase in the right pleural effusion which now occupies the lo wer third of the right pleural cavity. There is compressive atelectasis of the middle and lower lobes the right lung. There are chronic pulmonary parenchymal changes involving the right perihilar region. 2. Right-sided port in satisfactory position.
== END 2022-03-15 12:12 | disposition home or self-care (01) ==
LOC: RAD 12:13
PROVIDERS: PCP Family Medicine; Visit Provider Internal Medicine Pulmonary Disease
DX: R06.02 Shortness of breath (principal); J90 Pleural effusion, not elsewhere classified
CPT/HCPCS: 71046

== ENCOUNTER 2022-03-17 10:39 | Day surgery (SDC) | payer MEDICARE, BC, SELFPAY ==
[2022-03-15 13:41] VITALS: BMI 31.1
[2022-03-17 10:51] VITALS: BP 159/68; PULSE 59; RESP 18; TEMP 36.3; O2SAT 92
--- NOTE | 2022-03-17 11:43 | XR_ITS ---
WS: [id number] Exam: XR chest 1V portable [id number] Date/Time of Exam: 03/17/2022 11:50 AM Reason For Exam: post thoracentesis-right side Comparison 03/15/2022. There is been significant reduction in right-sided pleural effusion apparently secondary to thoracent esis. No pneumothorax is seen. Again noted are chronic pulmonary parenchymal changes in the mid right lung. The left lung is fully expanded without infiltrate. Mild cardiac enlargement. Right-sided subc lavian port ends in the right atrium. XR/XR chest 1V portable [id number] IMPRESSION: 1. Significant reduction in right-sided pleural effusion apparently secondary t o thoracentesis. No pneumothorax is seen. No other changes since prior exam.
--- NOTE | 2022-03-17 11:48 | P.PCN_ITS ---
Outpatient Procedures Thoracentesis Consent signed and on chart: Yes Time Out Performed: Yes Procedure: therapeutic thoracentesis Location: Right Local anesthetic used: lidocaine 1% Bedside ultrasound used: yes, pleural effusion confirmed and location marked and yes, real-time guidance Preparation: sterile prep and drape and 10 blade used to make alice in skin Amount of fluid obtained (mL): 2,000 Fluid: clear (STRAW COLORED) Size of needle used: 22 Post-procedure chest x-ray ordered: Yes Estimated blood loss (mL): 5 Patient Tolerated Procedure: well and no complications Procedure Note: Pulmonary & Critical Care Medicine Procedure - Ultrasound guided Thoracentesis Procedure: Ultrasound guided Thoracentesis Indication: Pleural effusion Assembler Dielectric Heater(s): Constantine Bettencourt MD Consent: Signed and placed in chart Anesthesia: 10 cc 1% lidocaine without epinephrine Description: Right pleural effusion was localized using ultrasound guidance and the appropriate site was marked accordingly. A time out was performed. My hands were washed? immediately prior to the procedure. I wore a surgical cap, mask with? protective eyewear, sterile gown and sterile gloves throughout the? procedure. The patient was placed in appropriate position, area of interest was sterilized with chlorhexidine skin prep and draped in a sterile manner. 1% lidocaine was used to anesthesize the skin, subcutaneous tissue, superior aspect of the rib periosteum and parietal? pleura. A finder needle was then introduced over the superior aspect of? the rib to locate the pleural fluid; 5 cc straw- colored colored fluid was aspirated. A 10-blade scalpel was used to alice the? skin at the insertion site. The [id number]-v-[id number] needle was then? introduced through the skin incision into the pleural space using? negative aspiration pressure and the red colormetric indicator to confirm? appropriate positioning of the needle. The thoracentesis catheter was? then threaded without difficulty.? 2000 CC straw-colored.colored fluid was removed? without difficulty. The catheter was then removed. No immediate? complications were noted during the procedure. The fluid will be sent for? studies.? Estimated blood loss is 5 - 10 CC. ? Ultrasound guidance used: Yes. EBL: 5 cc Complications: No PCXR: A post-procedure chest? x-ray did not show pneumothorax.
[2022-03-17 11:50] VITALS: BP 177/72; PULSE 61; RESP 17; O2SAT 96
--- NOTE | 2022-03-17 11:51 | CT_ITS ---
WS: [id number] CT CHEST TECHNIQUE: Noncontrast CT of the chest with coronal and sagittal reformatted images. CLINICAL INFORMATION: post thoracentesis-right side COMPARISON: March 17, 2022. Chest CT January 07, [address] August 28, 2021. DLP: 666.[address] scans at [facility] use at least one of these dose optimization techniques: automated e xposure control; mA and/or kV adjustment per patient size (includes targeted exams where dose is matc hed to clinical indication); or iterative reconstruction. FINDINGS: Improved RIGHT pleural effusion compared to previous. Small residual RIGHT pleural effusion. Fluid al jerri the RIGHT major fissure. No pneumothorax. Narrowing of the RIGHT upper and lower lobe bronchi pro gressed compared to prior examination. Bulky RIGHT hilar mass/lymphadenopathy has progressed compared to previous. In particular infrahilar soft tissue has progressed. This can be further evaluated PET/ CT.Interstitial thickening with interstitial infiltrates RIGHT upper lobe may represent lymphangitic spread versus radiation changes slightly progressed compared to previous.. Adrenal glands are normal. Noncontrast liver appears normal. Small esophageal hiatal hernia. Mild fat ty atrophy of the pancreas. Small pericardial effusion. Normal caliber thoracic aorta. Aortic calcification. RIGHT Port-A-Cath. N o axillary lymphadenopathy. Mild thoracic kyphosis with anterior hypertrophic changes thoracic spine. Traction bronchiectasis RIGHT upper lobe. Calcified granuloma LEFT lower lobe. LEFT lung is well aerated. Moderate chronic emphysematous change s. Fibrosis lung apices. CT/CT chest wo con [id number] IMPRESSION: 1. Post RIGHT thoracentesis. No pneumothorax. Improved RIGHT pleural effusion. 2. Fluid along the RIGHT major fissure. 3. Bulky soft tissue thickening involving the RIGHT hilum and infrahilar mass progressed compared to previous suspicious for progressive disease. Narrowing o f the RIGHT upper and lower lobe bronchi. Recommend further evaluation with PET /CT. 4. Interstitial thickening about the RIGHT hilum some of which may be due to l ymphangitic spread versus radiation changes slightly progressed compared to pre vious. 5. LEFT lung is well aerated. 6. No other significant interval changes. 7. Small pericardial effusion.
[2022-03-17 12:09] LABS: Body Fluid Polynuclear #Cells 0.009; Body Fluid WBC 1186 /uL; Monocytes # Body Fluid 1.177
[2022-03-17 12:31] VITALS: BP 165/76; PULSE 61; RESP 17; O2SAT 90
[2022-03-17 12:31] LABS: Apprearance, Body Fluid CLOUDY; Color, Body Fluid YELLOW; Cyto Order Verification Order Verified
[2022-03-17 12:50] LABS: Albumin Body Fluid 3.1 g/dL
[2022-03-17 12:51] LABS: Creatinine Body Fluid 1.18 (0.7-1.2); LDH Pleural Fluid 116 U/L; Total Protein Pleural Fluid 4.4 g/dL; Triglycerides, Pleural Fluid 13 mg/dL
== END 2022-03-17 12:38 | disposition home or self-care (01) ==
LOC: GILAB 10:40
PROVIDERS: PCP Family Medicine; Visit Provider Internal Medicine Pulmonary Disease
PROC: (CPT 32554; principal; 2022-03-17 12:30)
DX: J90 Pleural effusion, not elsewhere classified (principal)
CPT/HCPCS: 32554; 71045; 71250; 82042; 82150; 82570; 82945; 83615; 83986; 84157; 84478; 85014; 87015; 87070; 87075; 87116; 87205; 87206; 87801; 88108; 88305; 89050

== ENCOUNTER 2022-04-02 10:20 | Outpatient (CLI) | payer MEDICARE, BC, SELFPAY ==
--- NOTE | 2022-04-02 10:30 | PETR_ITS ---
PROCEDURE INFORMATION: Exam: PET/CT Skull Base to Mid-thigh Exam date and time: 04/02/2022 10:57 AM Age: 76 years old Clinical indication: Primary cancer: RT lung cancer; Follow-up oncological assessment; Additional info: CT chest on 03/17/22 shows soft tissue thickening in the right lung. LABS AND CLINICAL REPORTS: Glucose: 121 mg/dl Treatment strategy for malignancy (PET staging): Restaging (PS) TECHNIQUE: Imaging protocol: Following at least four-hour fasting and following the injection of F-18-FDG, low dose CT images were obtained. Then, PET images were obtained. Attenuation corrected images were constructed using the CT scan. Fused images of PET and CT were reviewed. The standardized uptake values (SUV) reported below are maximum values within a region of interest, expressed in gm/ml. Exam includes orbital meatal line to mid-thigh. Radiopharmaceutical: 12.4 mCi F-18 FDG (Fluorodeoxyglucose), IV. Time of imaging post radiopharmaceutical administration: 1 hour Injection site: Information not provided COMPARISON: CT chest 03/17/2022 and 01/07/2022, PET -CT 08/28/2021 FINDINGS: Brain: Visualized brain has normal physiologic uptake. Pharynx: No abnormal uptake. Larynx: No abnormal uptake. Lungs, pleura and trachea: No abnormal uptake. Large right pleural effusion has significantly increased since 03/17/2022, currently slightly larger than on the prior PET-CT exam on 08/28/2021. Perihilar consolidation in the right upper lobe on image 61 measures 1.8 SUV and in the right middle lobe on image 69 measures 2.6 SUV suggestive of changes of chronic postradiation pneumonitis/scarring. There are no suspicious nodules or masses in the left lung. There is no left pleural effusion. Heart: Normal physiologic uptake. Mediastinal space: See below in lymph nodes . Liver: No abnormal uptake. Gallbladder and bile ducts: No abnormal uptake. No calcified gallstones. Pancreas: No abnormal uptake. Spleen: No abnormal uptake. The spleen is borderline in size measuring 13.2 cm stable since prior exam. Adrenal glands: No abnormal uptake. No nodules. Kidneys and ureters: Normal physiologic uptake. No hydronephrosis. 2 mm calcification in the upper pole of the right kidney on image 108, possible tiny nonobstructive stone. Stomach and bowel: No abnormal uptake. No abnormal dilatation of the bowel. Extensive diverticulosis of the sigmoid colon. Intraperitoneal and retroperitoneal spaces: No abnormal uptake. No ascites. Bladder: Normal physiologic uptake. Reproductive: No abnormal uptake. The prostate is mildly enlarged. Vasculature: No abnormal uptake. No aortic aneurysm. Lymph nodes: No abnormal uptake. No lymphadenopathy in the head, neck, chest, abdomen, pelvis, and extremities. Stable sequela of exposure to granulomatous disease with calcified granulomas in normal size subcarinal and right hilar lymph nodes. Bones/joints: No abnormal uptake in the visualized axial and appendicular skeleton. Soft tissues: No abnormal uptake in the visualized head, neck, chest, abdomen, pelvis, and extremities. Catheters, tubes and devices: Port catheter placed via the right subclavian vein terminates in the cavoatrial junction. [facility] [id number] IMPRESSION: No abnormal radiotracer uptake to suggest malignancy. Right perihilar soft tissue fullness documented on CT chest on 03/17/2022 appears more prominent in comparison with 01/07/2022 because the exam on 03/17/2022 was obtained after right thoracentesis with much smaller amount of right pleural effusion than before allowing for better visualization of chronic postradiation pneumonitis/scarring in the right lung. The right pleural effusion continues to reaccumulate (from small on 03/17/2022 to large on the current exam) with no abnormal FDG uptake in the pleura.
== END 2022-04-02 10:21 | disposition home or self-care (01) ==
LOC: RAD 04-04 06:00
PROVIDERS: PCP Family Medicine; Visit Provider Internal Medicine Pulmonary Disease
DX: R91.8 Other nonspecific abnormal finding of lung field (principal); C34.11 Malignant neoplasm of upper lobe, right bronchus or lung; J90 Pleural effusion, not elsewhere classified
CPT/HCPCS: 78815; A9552

== ENCOUNTER 2022-04-19 08:37 | Day surgery (SDC) | payer MEDICARE, BC, SELFPAY ==
[2022-04-18 13:29] VITALS: BMI 31.1
[2022-04-19] VITALS (15 sets, daily range): BP systolic 134–178; BP diastolic 65–96; PULSE 51–80; RESP 16–18; TEMP 36.2–36.4; O2SAT 90–100
--- NOTE | 2022-04-19 09:20 | P.ANESASSM_ITS ---
Pre-Anesthetic Assessment Height/Weight: Height 1.83 m Weight 104.326 kg Preop Diagnosis: Lung cancer Operation Date: 04/19/22 10:20 Proposed Procedures p Pleurx Catheter Insertion (Requesting Anesthesia) [id number],J90(Not Applicable) - Constantine Amezquita DatarMD Familial anesthetic complications: NOne Was Beta Edgardo taken within 24 hours: N/A Was Clonidine taken within 24 hours: N/A Last intake: > 8hrs Social No alcohol and No tobacco Exam alert, oriented x 3, clear to auscultation bilaterally and regular rate & rhythm Airway Mallampati: Class III Dentition: full Pulmonary Chronic Obstructive Pulmonary Disease LUng cancer, R effusion CV/HEM Coronary Artery Disease, Hypertension and Peripheral Vascular Disease Chronic Renal Insufficiency Metabolic Hyperlipidemia Anesthetic Plan ASA status: 4 Anesthesia: MAC Risk of > 500 ml blood loss (7ml/kg in children): No Medications/Allergies Home Medications Medication Instructions Recorded Confirmed Last Taken Type amlodipine 10 mg tablet 10 mg PO DAILY@11/14/19 04/18/22 04/18/22 History aspirin 81 mg tablet,delayed 81 mg PO DAILY@ PRN help with 11/14/19 04/18/22 03/01/22 History release (Adult Aspirin Regimen) blood thinning carvedilol 12.5 mg tablet 12.5 mg PO BID@11/14/19 04/18/22 04/18/22 History escitalopram oxalate 20 mg tablet 20 mg PO DAILY@11/14/19 04/18/22 04/18/22 History loratadine 10 mg capsule 10 mg PO DAILY@11/14/19 04/18/22 04/18/22 History omeprazole 20 mg capsule,delayed 20 mg PO DAILY@11/14/19 04/18/22 04/18/22 History release simvastatin 10 mg tablet 10 mg PO DAILY@11/14/19 04/18/22 04/18/22 History lisinopril 10 mg tablet 5 mg PO DAILY PRN high blood 01/22/21 04/18/22 04/18/22 History pressure spirometers and accessories #1 ea 07/30/21 04/18/22 04/18/22 Rx clotrimazole-betamethasone 1 1 applic topical BID Tinea Pedis 4 12/20/21 04/18/22 01/19/22 Rx %-0.05 % topical cream weeks #45 grams vitamin B comp and C no.3 15 mg-10 1 cap PO DAILY 01/14/22 04/18/22 04/18/22 History mg-50 mg-5 mg-300 mg capsule (B Complex Plus Vitamin C) vitamin B complex 1 tab PO DAILY 01/14/22 04/18/22 04/18/22 History fluticasone fur. 100 mcg-umeclid 1 inh inhalation DAILY #60 ea 01/21/22 04/18/22 04/18/22 Rx 62.5 mcg-vilant 25 mcg inhalat.powder (Trelegy Ellipta) Allergies Allergy/AdvReac Type Severity Reaction Status Date / Time No Known Allergies Allergy Verified 04/18/22 13:20 [facility] Anesthesia Medical History Hypertension Kidney stone Lung cancer Seasonal allergies Family History Son Diabetes Mother Cancer Other Hypertension Denies family history of CAD (coronary artery disease) Clotting disorder Dementia Hyperlipidemia Psychiatric illness Chronic kidney disease (CKD) Suicide Anesthesia complication Bleeding disorder Lung disease Stroke Social History Smoking and tobacco status: former smoker (smoked x 40+ years) Quit status (tobacco): has quit using tobacco Year quit tobacco: 2007 [id number] Second hand smoke exposure: Yes Smoking risk assessment/counseling performed?: Yes Alcohol intake: never Lives independently: Yes Household members: spouse Housing: House Marital status: service: Yes Current occupational status: retired Pets and animals: Yes History of recent travel: No Current gender identity: Male Data Anesthesia Cardiac Studies: Echocardiogram 03/22/21 Echocardiogram Ultrasound 03/03/20
[2022-04-19] MEDS: sodium chloride 0.9% 1,000 ML 30 ML IV (09:30)
--- NOTE | 2022-04-19 10:00 | PM.OPSURHP ---
Providers/Chief Complaint Primary Care Provider: Blayne Hooper MD Chief Complaint: gi lab History of Present Illness Blu Howe is a 76 year old male with past medical history of metastatic lung adenocarcinoma s/p chemotherapy. Patient was diagnosed with poorly differentiated adenocarcinoma October 15, 2021. CT PET showed hypermetabolic mass centered in the right major fissure corresponding to suspected primary malignancy with associated hypermetabolic nodularity tracking along the right major fissure and extensive hypermetabolic right hilar right paratracheal and right supraclavicular lymph node. Clinical stage IV or IIIc with biopsy-proven right supraclavicular lymphadenopathy and solitary brain lesion/mets. He received combined chemoradiation 11/20/2019 with carboplatin and paclitaxel. Follow-up CT scan showed excellent response with resolution of supraclavicular lymph node and right upper lobe spiculated mass. He received immunotherapy with durvalumab was held due to worsening shortness of breath. He underwent bronchoscopy and transbronchial biopsies to rule out lymphangitic spread. 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 However his immunotherapy was never started. 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 prednisone over next few months. Patient kept having recurrent right pleural effusion requiring drainage every 4 to 6 weeks. He underwent thoracentesis on January 20, 2022 and again on March 17, 2022 for symptomatic relief.Most recent PET/CT scan 2 weeks ago on 04/02/2021-did not show abnormal radiotracer uptake to suggest malignancy. But there is recurrent pleural effusion and patient complain of increasing shortness of breath. Hence today scheduled for Pleurx catheter procedure. I have discussed in detail about possible complications like bleeding, infection of the pleural cavity with patient and his . They verbalized understanding and agreed to go ahead with the procedure Medications/Allergies Home Medications Medication Instructions Recorded Confirmed Last Taken Type amlodipine 10 mg tablet 10 mg PO DAILY@11/14/19 04/19/22 04/19/22 07:30 History aspirin 81 mg tablet,delayed 81 mg PO DAILY@ PRN help with 11/14/19 04/19/22 03/01/22 History release (Adult Aspirin Regimen) blood thinning carvedilol 12.5 mg tablet 12.5 mg PO BID@,11/14/19 04/19/2224/23 07:30 History escitalopram oxalate 20 mg tablet 20 mg PO DAILY@11/14/19 04/19/22 04/19/22 07:30 History loratadine 10 mg capsule 10 mg PO DAILY@11/14/19 04/19/22 04/19/22 07:30 History omeprazole 20 mg capsule,delayed 20 mg PO DAILY@11/14/19 04/19/22 04/19/22 07:30 History release simvastatin 10 mg tablet 10 mg PO DAILY@11/14/19 04/19/22 04/18/22 History lisinopril 10 mg tablet 5 mg PO DAILY PRN high blood 01/22/21 04/19/22 04/18/22 History pressure spirometers and accessories #1 ea 07/30/21 04/19/22 04/18/22 Rx clotrimazole-betamethasone 1 1 applic topical BID Tinea Pedis 4 12/20/21 04/19/22 01/19/22 Rx %-0.05 % topical cream weeks #45 grams vitamin B comp and C no.3 15 mg-10 1 cap PO DAILY 01/14/22 04/19/22 04/18/22 History mg-50 mg-5 mg-300 mg capsule (B Complex Plus Vitamin C) vitamin B complex 1 tab PO DAILY 01/14/22 04/19/22 04/18/22 History fluticasone fur. 100 mcg-umeclid 1 inh inhalation DAILY #60 ea 01/21/22 04/19/22 04/18/22 Rx 62.5 mcg-vilant 25 mcg inhalat.powder (Trelegy Ellipta) Allergies Allergy/AdvReac Type Severity Reaction Status Date / Time No Known Allergies Allergy Verified 04/18/22 13:20 PFSH PFSH: Medical History Hypertension Kidney stone Lung cancer Seasonal allergies Family History Son Diabetes Mother Cancer Other Hypertension Denies family history of CAD (coronary artery disease) Clotting disorder Dementia Hyperlipidemia Psychiatric illness Chronic kidney disease (CKD) Suicide Anesthesia complication Bleeding disorder Lung disease Stroke Social History Smoking and tobacco status: former smoker (smoked x 40+ years) Quit status (tobacco): has quit using tobacco Year quit tobacco: 2007 [id number] Second hand smoke exposure: Yes Smoking risk assessment/counseling performed?: Yes Alcohol intake: never Lives independently: Yes Household members: spouse Housing: House Marital status: service: Yes Current occupational status: retired Pets and animals: Yes History of recent travel: No Current gender identity: Male Dietary Habits: Caffeine: Yes Caffeine intake frequency: coffee Vital Signs Vitals Signs: Last Vital Signs Temp 97.2 F L 04/19/22 08:55 Pulse 60 04/19/22 08:55 Resp 18 04/19/22 08:55 BP 134/71 04/19/22 08:55 Pulse Ox 95 04/19/22 08:55 O2 Del Method 04/19/22 08:55 Weight: Weight last 48 hrs Weight 230 lb Physical Exam Narrative: EXAM NARRATIVE: General: alert, NAD HEENT: conj clear, EOMI, PERRL, mmm, Neck: supple, no meningismus Heme: no cervical LAP Respiratory: Auscultation: Reduced breath sounds on right lower lung zone Cardiovascular: rrr, nl s1s2, no mrg Abdomen: soft, nt, nd, no r/g, bs+ Extremities: pulses +, no edema, no c/c : no CVA tenderness Skin: intact, no rash MSK: no back or neck pain Neurologic: grossly intact A&P Assessment and plan (1) Recurrent right pleural effusion: (2) Immunotherapy: (3) Radiation pneumonitis: Plan #Recurrent right pleural effusion patient with history of poorly differentiated adenocarcinoma stage IIIc s/p chemoradiation in 2019 followed by 3 doses of immunotherapy early 2020 -Most recent PET/CT 04/02/2022 did not show any abnormal radiotracer uptake -Today scheduled for Pleurx catheter placement for palliation -Discussed in detail about the alternatives, complications like bleeding and pleural cavity infection with patient and his . They verbalized understanding and agreed with the plan -We will schedule patient to come once in every 7 to 10 days to drain the pleural fluid Coding Level of Care Code New Pt Acute Code for Chg Fwd Patient Type New History Comprehensive Exam Comprehensive Medical Decision Making Moderate Complexity Diagnoses Recurrent right pleural effusion J90 Immunotherapy Z29.8 Radiation pneumonitis J70.0 Time Spent (min) 15
[2022-04-19] MEDS: fentaNYL 50 mcg/mL INJ 2mL 25 MCG IVP (10:15)
--- NOTE | 2022-04-19 11:00 | XR_ITS ---
WS: [id number] Exam: XR chest 1V portable [id number] Date/Time of Exam: 04/19/2022 11:10 AM Reason For Exam: post pleurex drain placement Comparison 03/17/2022. Moderate sized right pleural effusion noted. Chronic pulmonary changes again noted in the mid right l cecille. The left lung is clear and fully expanded. Right-sided subclavian port ends at the cavoatrial ju nction. There also appears to be a right chest tube in place ending along the medial upper right pleu ral cavity. Heart size is normal. The mediastinum is normal in contour. Bony structures are intact. XR/XR chest 1V portable [id number] IMPRESSION: 1. Moderate-sized right pleural effusion. Little change since the last exam. Th ere is probably atelectasis in the middle and lower lobes the right lung. 2. Chronic changes in the mid right lung. 3. Right-sided chest tube in place as noted above. Right-sided subclavian port probably ending at the cavoatrial junction.
--- NOTE | 2022-04-19 11:04 | P.OP_ITS ---
Operative Report Date of procedure: April 19, 2022 Pre-op diagnosis: Preop Diagnosis Lung cancer Post-op diagnosis: other Post-op diagnosis: Recurrent pleural effusion causing symptomatic dyspnea Procedure done: 68731: Insertion of tunneled Pleurx catheter in the right pleural cavity 56651: Moderate sedation CPT code Anesthesia: MAC (Fentanyl 25 MCG) Brief History: Blu Howe is a 76 year old male with past medical history of metastatic lung adenocarcinoma s/p chemotherapy. Patient was diagnosed with poorly differentiated adenocarcinoma October 15, 2021.? CT PET showed hypermetabolic mass centered in the right major fissure corresponding to suspected primary malignancy with associated hypermetabolic nodularity tracking along the right major fissure and extensive hypermetabolic right hilar right paratracheal and right supraclavicular lymph node.? Clinical stage IV or IIIc with biopsy-proven right supraclavicular lymphadenopathy and solitary brain lesion/mets. He received combined chemoradiation 11/20/2019 with carboplatin and paclitaxel.? Follow-up CT scan showed excellent response with resolution of supraclavicular lymph node and right upper lobe spiculated mass.? He received immunotherapy with durvalumab was held due to worsening shortness of breath.? He underwent bronchoscopy and transbronchial biopsies to rule out lymphangitic spread.? 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 However his immunotherapy was discontinued. He was started treated with p.o. 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 While he was on steroids he did well but as we tapered steroids-patient kept having right pleural effusion. He was kept on low-dose prednisone and sent him for a second opinion to [facility]. They have recommended to discontinue steroids completely as there was no significant worsening of pleural effusion. However over the summer 2021-he underwent thoracentesis in July 2021 with reaccumulation on subsequent PET/CT scan. He was seen by at [facility] for thoracoscopy-who recommended Pleurx catheter placement. At that point, patient deferred Pleurx catheter placement due to the infection risk and came back to me. Meanwhile he underwent thoracentesis on January 20, 2022 and again on March 17, 2022 for symptomatic relief.Everytime fluid was exudative by lights criteria (Pleural/Serum Protein >0.5) but cytology negative for malignancy. Most recent PET/CT scan 2 weeks ago on 04/02/2021-did not show abnormal radiotracer uptake to suggest malignancy.? But there is recurrent pleural effusion and patient complain of increasing shortness of breath. As this Effusion has been accumulating repeatedly causing symptomatic dyspnea requiring repeat thoracentesis every 4 to 6 weeks-I also offered to place Pleurx catheter drain. I have discussed in detail about possible complications like bleeding, injury to the chest and infection of the catheter and the pleural cavity with patient and his .? They verbalized understanding and agreed to go ahead with the procedure. Procedure: DATE OF PROCEDURE: 04/19/2022 PREOPERATIVE DIAGNOSIS: Recurrent right pleural effusion causing symptomatic dyspnea. POSTOPERATIVE DIAGNOSIS: Recurrent right pleural effusion causing symptomatic dyspnea. PROCEDURE PERFORMED: 09461: Insertion of tunneled Pleurx catheter in the right pleural cavity 57440: Moderate sedation SURGEON: Constantine Bettencourt MD [facility] ANESTHESIA: Moderate sedation with fentanyl 25 MCG ASA: 3 INDICATION FOR PROCEDURE: Recurrent right pleural effusion causing symptomatic dyspnea. In an effort to palliate respiratory symptoms, PleurX catheter placement was considered for home drainage. The patient and his family understood the risks and possible complications of the procedure and wished to proceed. DESCRIPTION OF PROCEDURE: The patient was brought to the operating room. He was placed supine on the operating table. He was connected to telemetry, oxygen, hemodynamic monitoring. After doing appropriate timeout, patient was given fentanyl 25 MCG IV push for moderate sedation (29186). The patient was th en positioned with the head up and a roll under the right shoulder. The right chest and upper abdomen were prepped and draped in the usual sterile fashion. 10 cc 1% local lidocaine is used for local anesthesia. A small counterincision was made in the right upper quadrant area. Through the anterior axillary line area, the pleural space was accessed by Seldinger technique using ultrasound guidance. The counterincision was made around the guidewire and then the indwelling PleurX catheter was tunneled from the right upper quadrant small incision to the one overlying the ribs. After appropriate dilation a sheath introducer was then passed over the wire and then the PleurX catheter was placed through the sheath introducer. There was good return of fluid. 1.5 liters of straw-colored fluid was withdrawn slowly as the small counterincision was closed with Monocryl stitch. The catheter was capped off, and sterile dressings were applied. The patient tolerated the procedure well without any complications. The patient vitals remained stable. Sponge and needle count was correct at the end of the case. OPERATIVE FINDINGS: 1.5 liters of straw-colored was withdrawn before clamping the drainage tube. There were overt no bleeding complications. Estimated blood loss: 5 to 10 cc Immediate complications: None
== END 2022-04-19 11:55 | disposition home or self-care (01) ==
PROVIDERS: PCP Family Medicine; Visit Provider Internal Medicine Pulmonary Disease
PROC: (CPT 32550; principal; 2022-04-19 10:10)
DX: C34.90 Malignant neoplasm of unspecified part of unspecified bronchus or lung (principal); J70.0 Acute pulmonary manifestations due to radiation; Z29.8 Encounter for other specified prophylactic measures; J90 Pleural effusion, not elsewhere classified; J44.9 Chronic obstructive pulmonary disease, unspecified; I25.10 Atherosclerotic heart disease of native coronary artery without angina pectoris; I10 Essential (primary) hypertension; I73.9 Peripheral vascular disease, unspecified; E78.5 Hyperlipidemia, unspecified; Z79.82 Long term (current) use of aspirin; Z87.891 Personal history of nicotine dependence
CPT/HCPCS: 32550; 71045; 96374; C1729; J3010; J7030

== ENCOUNTER 2022-05-18 15:32 | Oncology outpatient (recurring) (ONCR) | payer MEDICARE, BC, SELFPAY | END 2022-05-24 23:59 | disposition home or self-care (01) | PROVIDERS: PCP Family Medicine; Visit Provider Internal Medicine Hematology & Oncology | DX: Z53.9 Procedure and treatment not carried out, unspecified reason (principal) ==

== ENCOUNTER 2022-05-23 08:40 | Outpatient (RCR) | payer MEDICARE, BC, SELFPAY ==
[2022-04-29 11:30] VITALS: BP 156/71; PULSE 69; RESP 18; TEMP 36.2; O2SAT 91; BMI 31.1
--- NOTE | 2022-04-29 11:38 | XR_ITS ---
WS: [id number] Portable AP upright chest, 04/29/2022 Clinical Data: post pleural drain Comparison: Portable chest, 04/19/2022 Findings: The right basilar opacity remains the same which is probably effusion and some atelectasis. The left lung is clear. The heart size is normal. There is a right subclavian port unchanged. There is a right pleural catheter unchanged. XR/XR chest 1V [id number] Impression: 1. No change in right lower lobe opacity. 2. No change in right subclavian port and right basilar catheter whose tip ends in the superior right medial thorax
[2022-05-09 08:50] VITALS: BP 157/77; PULSE 58; RESP 16; TEMP 36.1; O2SAT 94
--- NOTE | 2022-05-09 09:13 | PC.NURSE ---
drain insertion site clean, no s/sx of infection. pt states not pain.
[2022-05-18 15:43] VITALS: BP 147/79; PULSE 60; RESP 18; TEMP 36.4; O2SAT 94
[2022-05-23 08:43] VITALS: BP 167/67; PULSE 64; RESP 16; TEMP 36.3; O2SAT 92
--- NOTE | 2022-05-23 09:25 | XRR_ITS ---
PROCEDURE INFORMATION: Exam: XR Chest Exam date and time: 05/23/2022 9:34 AM Age: 76 years old Clinical indication: Device placement; Other: [place] drain TECHNIQUE: Imaging protocol: Radiologic exam of the chest. Views: 1 view. COMPARISON: CR XR chest 1V [id number] 04/29/2022 11:47 AM FINDINGS: Tubes, catheters and devices: Right-sided central venous chest port noted with the distal tip at the cavoatrial junction. Right-sided chest tube noted in place. Lungs: The aerated lung parenchyma is clear. Mild interstitial prominence in the left lung base similar to prior exam. Pleural spaces: Moderate right-sided pleural effusion similar to prior exam. Heart/Mediastinum: The cardiomediastinal silhouette is within normal limits. Bones/joints: Unremarkable. XR/XR chest 1V portable [id number] IMPRESSION: No significant change from prior exam.
== END 2022-05-24 23:59 | disposition home or self-care (01) ==
LOC: GILAB 08:40
PROVIDERS: PCP Family Medicine; Visit Provider Internal Medicine Pulmonary Disease
DX: J91.8 Pleural effusion in other conditions classified elsewhere (principal)
CPT/HCPCS: 71045; 96523; 99212

== ENCOUNTER 2022-05-31 06:00 | Outpatient (RCR) | payer MEDICARE, BC, SELFPAY | END 2022-06-24 23:59 | disposition home or self-care (01) | LOC: GILAB 06:00 | PROVIDERS: PCP Family Medicine; Visit Provider Internal Medicine Pulmonary Disease | DX: J90 Pleural effusion, not elsewhere classified (principal) | CPT/HCPCS: 99212 ==

== ENCOUNTER 2022-06-21 09:53 | Outpatient (RCR) | payer MEDICARE, BC, SELFPAY ==
[2022-05-31 09:59] VITALS: BMI 30.9
[2022-05-31 10:05] VITALS: BP 138/68; PULSE 60; RESP 18; TEMP 36.1; O2SAT 95
[2022-06-07 09:58] VITALS: BP 130/67; PULSE 57; RESP 18; TEMP 36.1; O2SAT 95
--- NOTE | 2022-06-07 10:14 | XR_ITS ---
WS: [id number] XR chest 1V portable [id number] REASON FOR EXAM: irineo drain FINDINGS: Right chest/right subclavian vein chemotherapy therapy port and catheter remain in proper position. [place] catheter is in place in the right pleural space is unchanged in position compared to 04/19/2022 . Bullous disease in the right upper lung. Large right hilar mass. Right pleural effusion which is decreased in volume compared to 04/19/2022. No other interval change. XR/XR chest 1V portable [id number] IMPRESSION: Decreased volume of right pleural fluid with indwelling Irineo catheter compare d to previous examination.
[2022-06-07 10:57] LABS: Appearance, Pleural Fluid CLOUDY (CLEAR); Color, Pleural Fluid Yellow (Pale Yellow); Mononuclear %, Pleural Fluid 99 %; Mononuclear, Pleural Fluid # 1.518 10^3/uL; Polynuclear Cells, Pleural # 0.019 10^3/uL; Polynuclear Cells, Pleural % 1 %
[2022-06-07 11:06] LABS: Cyto Order Verification No Order; Right Pleural Fluid Right Lung
[2022-06-07 12:36] LABS: LDH Pleural Fluid 184 U/L
[2022-06-13 10:30] VITALS: BP 154/81; PULSE 67; RESP 16; TEMP 36.4; O2SAT 94; BMI 31.4
--- NOTE | 2022-06-13 10:37 | XR_ITS ---
WS: [id number] Portable AP upright chest, 06/13/2022 Clinical Data: Pleural effusion, post Pleurx drainage Comparison: Portable chest, 06/07/2022 Findings: The right infusion port remains in the same position. There is a basilar catheter to drain the right pleural effusion which is not changed. There is right pleural basilar reaction. The right h ilar mass is still present. The left lung has not changed. The heart size remains the same. XR/XR chest 1V portable [id number] Impression: 1. No change in basilar right pleural effusion. 2. No change in right basilar chest tube and right infusion catheter. 3. No change in right hilar mass.
[2022-06-17 09:49] VITALS: BMI 31.4
[2022-06-21 10:08] VITALS: BP 161/83; PULSE 72; RESP 18; TEMP 36.1; O2SAT 96
== END 2022-06-21 10:35 | disposition home or self-care (01) ==
LOC: GILAB 09:53
PROVIDERS: PCP Family Medicine; Visit Provider Internal Medicine Pulmonary Disease
DX: J44.9 Chronic obstructive pulmonary disease, unspecified (principal); J90 Pleural effusion, not elsewhere classified; J70.0 Acute pulmonary manifestations due to radiation; J84.89 Other specified interstitial pulmonary diseases; Z87.891 Personal history of nicotine dependence; Z92.3 Personal history of irradiation; Z92.21 Personal history of antineoplastic chemotherapy; Z85.118 Personal history of other malignant neoplasm of bronchus and lung; Z86.16 Personal history of COVID-19
CPT/HCPCS: 71045; 80503; 82945; 83615; 84157; 87070; 87075; 87205; 89050; 99212; 99214

== ENCOUNTER → 2022-06-28 09:56 | Day surgery (SDC) | payer MEDICARE, BC, SELFPAY ==
[2022-06-27 09:22] VITALS: BMI 31.8
--- NOTE | 2022-06-28 10:11 | XR_ITS ---
WS: [id number] XR chest 1V portable [id number] REASON FOR EXAM: post antonio drain FINDINGS: Chemotherapy infusion port in place over the right chest right subclavian catheter with the tip at th e atrial level. There is a Fill[place] catheter in place which courses parallel to the diaphragm from late ral to medial and then superiorly in the right pleural space to the level of the sonal. All the side holes appear to be within the pleural space. The catheter position is essentially the same as 06/14/19. There appears to be decreased pleural fluid in the right hemithorax compared to 06/13/2022. There is no pneumothorax. No other interval change or new findings compared to 06/13/2022. XR/XR chest 1V portable [id number] IMPRESSION: Right catheter in proper position. No pneumothorax. Decreased right pleural fluid.
[2022-06-28 10:12] VITALS: BP 116/65; PULSE 66; RESP 18; TEMP 36.1; O2SAT 95
--- NOTE | 2022-06-28 10:18 | PC.NURSE ---
Pleurx drain drained 1,350 mL of pleural fluid. Fluid stopped and a small amount of blood tinged fluid came out. Dr. Bettencourt notified. Chest x-ray ordered.
== END ==
PROVIDERS: PCP Family Medicine; Visit Provider Internal Medicine Pulmonary Disease
DX: Z46.82 Encounter for fitting and adjustment of non-vascular catheter (principal)
CPT/HCPCS: 71045; 99213

== ENCOUNTER 2022-07-05 09:46 | Day surgery (SDC) | payer MEDICARE, BC, SELFPAY ==
[2022-07-04 07:59] VITALS: BMI 30.6
[2022-07-05 10:00] VITALS: BP 143/71; PULSE 59; RESP 18; TEMP 36.3; O2SAT 95
--- NOTE | 2022-07-05 10:48 | PC.NURSE ---
PleurX cath output was 1600ml. Dr Bettencourt called to allow patient to have up to 2,000 ml drained with draining.
== END 2022-07-05 10:28 | disposition home or self-care (01) ==
LOC: GILAB 09:49
PROVIDERS: PCP Family Medicine; Visit Provider Internal Medicine Pulmonary Disease
DX: Z45.89 Encounter for adjustment and management of other implanted devices (principal); J91.8 Pleural effusion in other conditions classified elsewhere
CPT/HCPCS: G0463

== ENCOUNTER 2022-07-12 09:46 | Day surgery (SDC) | payer MEDICARE, BC, SELFPAY ==
[2022-07-11 08:03] VITALS: BMI 30.5
[2022-07-12 10:00] VITALS: BP 159/72; PULSE 62; RESP 18; TEMP 36.6; O2SAT 93
[2022-07-12 12:02] LABS: Color, Body Fluid SLIGHT PINK
[2022-07-12 12:03] LABS: Apprearance, Body Fluid CLOUDY; Body Fluid Polynuclear #Cells 0.012; Body Fluid WBC 1111 /uL; Cyto Order Verification Order Verified; Monocytes # Body Fluid 1.099
[2022-07-12 12:33] LABS: Albumin Body Fluid 2.3 g/dL; Creatinine Body Fluid 1.09 (0.7-1.2); LDH Pleural Fluid 190 U/L; Total Protein Pleural Fluid 3.4 g/dL; Triglycerides, Pleural Fluid 15 mg/dL
== END 2022-07-12 10:40 | disposition home or self-care (01) ==
LOC: GILAB 09:47
PROVIDERS: PCP Family Medicine; Visit Provider Internal Medicine Pulmonary Disease
DX: C80.1 Malignant (primary) neoplasm, unspecified (principal); J91.8 Pleural effusion in other conditions classified elsewhere
CPT/HCPCS: 80503; 82042; 82150; 82570; 82945; 83615; 83986; 84157; 84478; 85014; 87015; 87070; 87075; 87116; 87205; 87206; 87801; 88112; 88305; 89050; G0463

== ENCOUNTER 2022-07-18 09:18 | Oncology outpatient (recurring) (ONCR) | payer MEDICARE, BC, SELFPAY ==
[2022-07-18 09:44] VITALS: BP 118/75; PULSE 60; RESP 16; TEMP 36.1; O2SAT 98
[2022-07-18 10:01] LABS: Basophils % 0.6 %; Eosinophils # 0.1 10^3/uL (0.0-0.8); Eosinophils % 3.2 %; Hematocrit 42.1 % (42.0-52.0); Lymphocytes # 0.3 10^3/uL (0.8-4.8); Lymphocytes % 10.4 %; Mean Corpuscular HGB Conc 30.9 g/dL (30.0-36.0); Mean Corpuscular Hemoglobin 27.2 pg (28.0-34.0); Mean Corpuscular Volume 88.1 fl (80-94); Mean Platelet Volume 10.2 fL (7.4-10.4); Monocytes # 0.4 10^3/uL (0.2-0.9); Monocytes % 12.7 %; Neutrophils # 2.24 10^3/uL (1.8-7.7); Neutrophils % 72.8 %; Nucleated Red Blood Cells % 0 %; Platelet Count 242 10^3/cmm (130-400); Red Blood Count 4.78 10^6/uL (4.1-5.3); Red Cell Distribution Width 14.6 % (12.1-15.1); White Blood Count 3.1 10^3/uL (4.0-10.0)
[2022-07-18 10:23] LABS: Alanine Aminotransferase 8 U/L (0-41); Albumin Level 3.6 g/dL (3.5-5.2); Alkaline Phosphatase 98 U/L (40-130); Aspartate Amino Transferase 15 U/L (0-40); Blood Urea Nitrogen 12 mg/dL (8-23); Calcium 8.1 mg/dL (8.5-10.5); Carbon Dioxide 29 mmol/L (22-29); Chloride 103 mmol/L (98-107); Globulin 2.4 g/dL (1.3-4.6); Glucose 117 mg/dL (65-115); Osmolality Calculated 287 mOsm/kg (285-295); Sodium 138 mmol/L (136-145); Total Bilirubin 0.3 mg/dL (0.15-1.2)
== END 2022-07-24 23:59 | disposition home or self-care (01) ==
PROVIDERS: Nurse Practitioner Family; PCP Family Medicine; Visit Provider Internal Medicine Hematology & Oncology
DX: Z08 Encounter for follow-up examination after completed treatment for malignant neoplasm (principal); Z92.21 Personal history of antineoplastic chemotherapy; Z92.3 Personal history of irradiation; Z87.891 Personal history of nicotine dependence; J90 Pleural effusion, not elsewhere classified; Z85.118 Personal history of other malignant neoplasm of bronchus and lung; R06.00 Dyspnea, unspecified; D72.819 Decreased white blood cell count, unspecified
CPT/HCPCS: 80053; 85025; 99213

== ENCOUNTER 2022-08-18 11:23 | Oncology outpatient (recurring) (ONCR) | payer MEDICARE, BC, SELFPAY ==
[2022-08-18 13:03] VITALS: BP 129/65; PULSE 63; RESP 18; TEMP 36.6; O2SAT 95
== END 2022-08-24 23:59 | disposition home or self-care (01) ==
LOC: ONCMED 11:24
PROVIDERS: PCP Family Medicine; Visit Provider Internal Medicine Hematology & Oncology
DX: Z45.2 Encounter for adjustment and management of vascular access device (principal)
CPT/HCPCS: 96523; J1642

== ENCOUNTER → 2022-09-13 14:07 | Outpatient (BNVA) | payer MEDICARE, BC, SELFPAY | PROVIDERS: PCP Family Medicine; Visit Provider Internal Medicine Pulmonary Disease | DX: J44.9 Chronic obstructive pulmonary disease, unspecified (principal); J70.0 Acute pulmonary manifestations due to radiation; J84.89 Other specified interstitial pulmonary diseases; J90 Pleural effusion, not elsewhere classified; Z92.3 Personal history of irradiation; Z92.21 Personal history of antineoplastic chemotherapy; Z85.118 Personal history of other malignant neoplasm of bronchus and lung; Z85.841 Personal history of malignant neoplasm of brain | CPT/HCPCS: 99214 ==

== ENCOUNTER 2022-09-15 12:19 | Oncology outpatient (recurring) (ONCR) | payer MEDICARE, BC, SELFPAY ==
[2022-09-15 12:25] VITALS: BP 109/64; PULSE 65; RESP 18; TEMP 36; O2SAT 96
== END 2022-09-23 23:59 | disposition home or self-care (01) ==
LOC: ONCMED 12:19
PROVIDERS: PCP Family Medicine; Visit Provider Internal Medicine Hematology & Oncology
DX: Z45.2 Encounter for adjustment and management of vascular access device (principal)
CPT/HCPCS: 96523; J1642

== ENCOUNTER 2022-10-08 06:05 | Outpatient (CLI) | payer MEDICARE, BC, SELFPAY ==
--- NOTE | 2022-10-08 09:00 | PETR_ITS ---
PROCEDURE INFORMATION: Exam: PET/CT Skull Base to Mid-thigh Exam date and time: 10/08/2022 9:52 AM Age: 77 years old Clinical indication: Condition or disease; Primary cancer: Lung cancer, upper lobe right bronchus; Follow-up oncological assessment; Additional info: F/u LABS AND CLINICAL REPORTS: Glucose: 170 mg/dl Treatment strategy for malignancy (PET staging): Restaging (PS) TECHNIQUE: Imaging protocol: Following at least four-hour fasting and following the injection of radiopharmaceutical, low dose CT images were obtained. Then, PET images were obtained. Attenuation corrected images were constructed using the CT scan. Fused images of PET and CT were reviewed. The standardized uptake values (SUV) reported below are maximum values within a region of interest, expressed in gm/ml. Exam includes orbital meatal line to mid-thigh. Radiopharmaceutical: 12.51 mCi F-18 FDG (Fluorodeoxyglucose), IV. Time of imaging post radiopharmaceutical administration: 1 hour Injection site: Right antecubital COMPARISON: [facility] [id number] 04/02/2022 10:57 AM FINDINGS: Tubes, catheters and devices: A right subclavian central venous port catheter terminates in the right atrium. A small caliber right-sided chest tube terminates in the right lower lobe. Brain: Visualized brain has normal physiologic uptake. Pharynx: No abnormal uptake. Larynx: No abnormal uptake. Lungs, pleura and trachea: There is a moderate right pleural effusion, decreased in size since the prior PET-CT. Mild uptake throughout the right pleural surface is noted, SUV max 3.7 (previously 1.5). Mild bilateral centrilobular emphysematous changes. Bandlike streaky linear density extending from the right hilar region to the right upper lung pleural surface on series 3 between images 46 and 56 is not radiotracer avid suggestive of scarring. There are postoperative changes of partial right pneumonectomy. Heart: Normal physiologic uptake. Mediastinal space: No abnormal uptake. Liver: No abnormal uptake. Gallbladder and bile ducts: No abnormal uptake. Pancreas: No abnormal uptake. Spleen: No abnormal uptake. Adrenal glands: No abnormal uptake. Kidneys and ureters: Normal physiologic uptake. Stomach and bowel: No abnormal uptake. There are scattered colonic diverticula. Vasculature: No abnormal uptake. There are atherosclerotic calcifications throughout the abdomen and pelvis with no evidence of aneurysm. Lymph nodes: A new focus of uptake in the right perihilar region demonstrates an SUV max 3.5, within a soft tissue density nodule or lymph node on CT series 3, image 55 measuring 1.5 x 1.0 cm. Previously noted likely artifactual uptake in the region of the right hilar surgical staple line currently demonstrates an SUV max 3.1 (previously 3.7). No abnormal uptake is currently identified in the right middle lobe. Bones/joints: No abnormal uptake in the visualized axial and appendicular skeleton. [id number] diffuse degenerative vertebral body spondylosis is noted. Soft tissues: No abnormal uptake in the visualized head, neck, chest, abdomen, pelvis, and extremities. METRICS: Mediastinal blood pool: SUV max 3.3 PET/PET skulltothi SUBSEQ [id number] IMPRESSION: 1. Significant interval decrease in size of right pleural effusion compared with 04/02/2022. There is new mildly elevated uptake throughout the pleural surface of the right hemithorax which may reflect post treatment inflammatory changes. A neoplastic etiology cannot be excluded. 2. There is a new soft tissue density nodule or lymph node in the right hilar region compared to the prior PET-CT with mild uptake (SUV max 3.5). This may be reactive, secondary to infectious or inflammatory involvement. New neoplastic involvement cannot be entirely excluded. 3. Non radiotracer avid bandlike density is noted extending from the right hilar region to the right upper lung pleural surface likely related to scarring. 4. Bilateral centrilobular emphysematous changes. 5. Colonic diverticulosis. 6. Additional nonurgent findings as detailed above.
== END 2022-10-08 06:06 | disposition home or self-care (01) ==
LOC: RAD 10-10 06:06
PROVIDERS: PCP Family Medicine; Visit Provider Internal Medicine Pulmonary Disease
DX: C34.11 Malignant neoplasm of upper lobe, right bronchus or lung (principal); J84.89 Other specified interstitial pulmonary diseases; J90 Pleural effusion, not elsewhere classified
CPT/HCPCS: 78815; A9552

== ENCOUNTER 2022-10-21 06:13 | Outpatient (CLI) | payer MEDICARE, BC, SELFPAY ==
[2022-10-21] VITALS (15 sets, daily range): BP systolic 137–165; BP diastolic 52–76; PULSE 58–67; RESP 12–22; TEMP 36.1–36.7; O2SAT 95–99; BMI 30.7
[2022-10-21] MEDS: sodium chloride 0.9% 1,000 ML 30 ML IV (07:02)
[2022-10-21] MEDS: fentaNYL 50 mcg/mL INJ 2mL 25 MCG IVP (07:55)
--- NOTE | 2022-10-21 08:08 | PC.NURSE ---
Time out performed with all staff present at 0807
[2022-10-21] MEDS: lidocaine 1% INJ 10 mL (per mL) XX ×2 (08:19→08:30)
--- NOTE | 2022-10-21 08:38 | PC.NURSE ---
Dr Strange consulted to room to assist Dr Bettencourt. Dr Cervantes scrubbed into case at this time.
--- NOTE | 2022-10-21 08:59 | PC.NURSE ---
PleurX Cath successfully removed. Patient tolerated well. Vitals stable.
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
== END 2022-10-21 09:18 | disposition home or self-care (01) ==
PROVIDERS: PCP Family Medicine; Visit Provider Internal Medicine Pulmonary Disease
PROC: (CPT 32552; principal; 2022-10-21 07:30)
DX: Z48.03 Encounter for change or removal of drains (principal); J44.9 Chronic obstructive pulmonary disease, unspecified; I25.10 Atherosclerotic heart disease of native coronary artery without angina pectoris; I12.9 Hypertensive chronic kidney disease with stage 1 through stage 4 chronic kidney disease, or unspecified chronic kidney disease; N18.9 Chronic kidney disease, unspecified; C34.90 Malignant neoplasm of unspecified part of unspecified bronchus or lung; C79.9 Secondary malignant neoplasm of unspecified site; Z79.82 Long term (current) use of aspirin; Z87.891 Personal history of nicotine dependence
CPT/HCPCS: 32552; 87070; 87075; 87077; 87186; 87205; 96374; 99152; 99153; J3010; J7030

== ENCOUNTER 2022-10-25 11:25 | Outpatient (CLI) | payer MEDICARE, BC, SELFPAY ==
--- NOTE | 2022-10-25 11:44 | MR_ITS ---
WS: [id number] MRI HEAD WITH CONTRAST TECHNIQUE: Sagittal T1, T2 axial, T2 axial FLAIR, axial susceptibility weighted imaging, axial diffus ion weighted images, and coronal T2 images were obtained. Pre and post-T1 axial and post T1 coronal i mages. ADC and FSPGR images. CLINICAL INFORMATION: BRAIN LESION/MALIGNANT NEOPLASM OF BRAIN COMPARISON: No recent comparisons available. MRI September 2019 FINDINGS: No evidence of restricted diffusion to suggest acute ischemia. Ventricular system and basal cisterns are patent. Moderate small vessel changes. Moderate parenchymal volume loss. Volume loss worse in the frontal lob es. Normal posterior fossa. Normal vascular flow voids at the skull base. No extra-axial fluid collec tions. No evidence of mass or mass effect. Paranasal sinuses are well aerated. Mild mucosal thickenin g RIGHT greater than LEFT mastoid air cells. Normal posterior nasopharynx and parapharyngeal fat. Normal optic chiasm and pituitary infundibulum. Moderate symmetric atrophy temporal lobes and hippocampal formations. No hemosiderin on susceptibly w eighted images. No abnormal gadolinium enhancement. No evidence of enhancing intracranial metastatic disease. Some im ages in the posterior fossa are degraded due to patient motion. Normal visualized dural venous sinuse s MR/MR head wo/w con [id number] IMPRESSION: Outside comparisons not available. 1. No evidence restricted diffusion to suggest acute ischemia. 2. No evidence of enhancing intracranial metastatic disease. 3. Moderate small vessel changes with moderate parenchymal volume loss worse i n the frontal lobes. 4. No hemosiderin on susceptibly weighted images. 5. No other suspicious findings.
[2022-10-25] MEDS: gadobenate dimeglumine 20 mL vial IV (12:46)
== END 2022-10-25 11:26 | disposition home or self-care (01) ==
LOC: RAD 11:27
PROVIDERS: PCP Family Medicine; Visit Provider Nurse Practitioner Adult Health
DX: G93.9 Disorder of brain, unspecified (principal); C71.9 Malignant neoplasm of brain, unspecified
CPT/HCPCS: 70553; A9577

== ENCOUNTER 2022-11-01 13:03 | Day surgery (SDC) | payer MEDICARE, BC, SELFPAY ==
[2022-11-01 13:21] VITALS: BP 160/74; PULSE 76; RESP 20; TEMP 36.5; O2SAT 95; BMI 31.3
--- NOTE | 2022-11-01 14:20 | XR_ITS ---
WS: [id number] CHEST XRAY TECHNIQUE: Portable chest. CLINICAL INFORMATION: post thora COMPARISON: Radiograph 06/28/2022 FINDINGS: Stable right central venous catheter. Heart: Cardiomegaly. Aortic calcification. Lungs: Moderate chronic emphysematous changes. Volume loss right hemithorax. Small right pleural effu roxanna with chronic pleural thickening right hemithorax. No visualized pneumothorax. Left lung is well aerated. Bones: Osteopenia. IMPRESSION: No pneumothorax post thoracentesis.
--- NOTE | 2022-11-01 14:59 | PC.NURSE ---
1448- Datar said that the CXR is ok and pt can go home. Pt has no complaints of shortness of breath.
--- NOTE | 2022-11-01 22:44 | PM.OUTPTPROC ---
Outpatient Procedures Thoracentesis Consent signed and on chart: Yes Time Out Performed: Yes Procedure: diagnostic thoracentesis Location: Right Local anesthetic used: lidocaine 1% Bedside ultrasound used: yes, pleural effusion confirmed and location marked Preparation: sterile prep and drape Amount of fluid obtained (mL): 5 Post Procedure Exam: awake, alert, normal BP, normal HR and normal SpO2 Post-procedure chest x-ray ordered: Yes Estimated blood loss (mL): 3 Patient Tolerated Procedure: well and no complications Procedure Note: Pulmonary & Critical Care Medicine Procedure - Ultrasound guided Thoracentesis Procedure: CPT code 24082 thoracentesis, needle or catheter, aspiration of the pleural space; with imaging guidance Indication: right pleural effusion. C56.2-diagnostic thoracentesis to rule out infection/empyema Home Hospice Rn(s): Constantine Bettencourt MD [facility] Clinical history: 77-year-old male with past medical history of recurrent right pleural effusion-recently removed Pleurx catheter-patient has fever chills with residual right pleural effusion-today scheduled for diagnostic thoracentesis Technique: The study was performed in an ACR accredited facility. Medication reconciliation form reviewed and any changes related this procedure resolved. Report: The procedure for thoracentesis was explained to the patient including the risks, benefits and possible complications. The patient was given the opportunity to ask questions, wished to proceed, and signed the written informed consent form. Using ultrasound guidance, a safe route of access was identified into the right pleural space. The site was then prepped and draped using maximal sterile barrier technique. The 1% lidocaine was used for local anesthetic. With sonographic guidance, a 22 gauze needle inserted into right pleural pocket and aspirated 5 cc serosanguineous pleural fluid. The patient tolerated the procedure well without any immediate complications. Samples. 1. 5 cc serosanguineous right pleural fluid-sent for cultures ICD-10 code-J90 pleural effusion, not elsewhere classified
== END 2022-11-01 14:59 | disposition home or self-care (01) ==
LOC: GILAB 13:03
PROVIDERS: PCP Family Medicine; Visit Provider Internal Medicine Pulmonary Disease
PROC: (CPT 32554; principal; 2022-11-01 13:00)
DX: J90 Pleural effusion, not elsewhere classified (principal); Z87.891 Personal history of nicotine dependence; J44.9 Chronic obstructive pulmonary disease, unspecified; C34.11 Malignant neoplasm of upper lobe, right bronchus or lung; Z92.21 Personal history of antineoplastic chemotherapy
CPT/HCPCS: 32555; 71045; 87070; 87075; 87205; 99214

== ENCOUNTER 2022-11-16 14:14 | Oncology outpatient (recurring) (ONCR) | payer MEDICARE, BC, SELFPAY ==
[2022-11-16 14:17] VITALS: BP 118/74; PULSE 72; RESP 18; TEMP 36.2; O2SAT 94
== END 2022-11-24 23:59 | disposition home or self-care (01) ==
LOC: ONCMED 14:15
PROVIDERS: PCP Family Medicine; Visit Provider Internal Medicine Hematology & Oncology
DX: Z45.2 Encounter for adjustment and management of vascular access device (principal); J44.9 Chronic obstructive pulmonary disease, unspecified; J70.0 Acute pulmonary manifestations due to radiation; Z29.8 Encounter for other specified prophylactic measures; J84.89 Other specified interstitial pulmonary diseases; J90 Pleural effusion, not elsewhere classified; C34.11 Malignant neoplasm of upper lobe, right bronchus or lung; Z87.891 Personal history of nicotine dependence
CPT/HCPCS: 96523; 99214; J1642

== ENCOUNTER 2022-12-15 11:50 | Oncology outpatient (recurring) (ONCR) | payer MEDICARE, BC, SELFPAY ==
[2022-12-15 11:59] VITALS: BP 138/68; PULSE 67; RESP 16; TEMP 36.8; O2SAT 92
== END 2022-12-24 23:59 | disposition home or self-care (01) ==
LOC: ONCMED 11:51
PROVIDERS: PCP Family Medicine; Visit Provider Internal Medicine Medical Oncology
DX: Z45.2 Encounter for adjustment and management of vascular access device (principal)
CPT/HCPCS: 96523; J1642

== ENCOUNTER 2023-03-02 13:38 | Oncology outpatient (recurring) (ONCR) | payer MEDICARE, BC, SELFPAY ==
[2023-03-02 14:10] VITALS: BP 151/79; PULSE 63; RESP 16; TEMP 36.7; O2SAT 98
[2023-03-02 14:40] LABS: Basophils % 0.2 %; Eosinophils # 0.1 10^3/uL (0.0-0.8); Eosinophils % 1.7 %; Lymphocytes # 0.5 10^3/uL (0.8-4.8); Lymphocytes % 12.3 %; Mean Corpuscular HGB Conc 30.3 g/dL (30-55); Mean Corpuscular Hemoglobin 26.5 pg (27-33); Mean Corpuscular Volume 87.5 fl (82-101); Mean Platelet Volume 10.8 fL (7.4-10.4); Monocytes # 0.5 10^3/uL (0.2-0.9); Monocytes % 12.7 %; Neutrophils # 3.02 10^3/uL (1.8-7.7); Neutrophils % 72.6 %; Nucleated Red Blood Cells % 0 %; Platelet Count 239 10^3/cmm (157-399); Red Blood Count 4.57 10^6/uL (3.85-5.65); Red Cell Distribution Width 13.5 % (12.1-15.1); White Blood Count 4.16 10^3/uL (3.29-11.43)
[2023-03-02 15:01] LABS: Alanine Aminotransferase 14 U/L (0-41); Albumin Level 4.3 g/dL (3.5-5.2); Alkaline Phosphatase 97 U/L (40-130); Anion Gap 15.6 (5-19); Aspartate Amino Transferase 18 U/L (0-40); Blood Urea Nitrogen 16 mg/dL (8-23); Calcium 8.9 mg/dL (8.5-10.5); Carbon Dioxide 27 mmol/L (22-29); Chloride 101 mmol/L (98-107); Globulin 2.7 g/dL (1.3-4.6); Glucose 97 mg/dL (65-115); Osmolality Calculated 289 mOsm/kg (285-295); Potassium 4.6 mmol/L (3.5-5.1); Sodium 139 mmol/L (136-145); Total Bilirubin 0.5 mg/dL (0.15-1.2)
== END 2023-03-26 23:59 | disposition home or self-care (01) ==
PROVIDERS: Internal Medicine; PCP Family Medicine; Visit Provider Internal Medicine Medical Oncology
DX: Z45.2 Encounter for adjustment and management of vascular access device (principal); Z95.828 Presence of other vascular implants and grafts; C34.11 Malignant neoplasm of upper lobe, right bronchus or lung; J44.9 Chronic obstructive pulmonary disease, unspecified; J70.0 Acute pulmonary manifestations due to radiation; J84.89 Other specified interstitial pulmonary diseases; Z79.899 Other long term (current) drug therapy
CPT/HCPCS: 36591; 80053; 85025; 99215; J1642

== ENCOUNTER 2023-03-14 13:46 | Outpatient (CLI) | payer MEDICARE, BC, SELFPAY ==
--- NOTE | 2023-03-14 11:00 | PETR_ITS ---
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 History of radiation therapy and chemotherapy 3 years ago. LABS AND CLINICAL REPORTS: Glucose: 122 mg/dl Treatment strategy for malignancy (PET staging): Restaging (PS) TECHNIQUE: Imaging protocol: Following at least four-hour fasting and following the injection of radiopharmaceutical, low dose CT images were obtained. Then, PET images were obtained. Attenuation corrected images were constructed using the CT scan. Fused images of PET and CT were reviewed. The standardized uptake values (SUV) reported below are maximum values within a region of interest, expressed in gm/ml. Exam includes orbital meatal line to mid-thigh. Radiopharmaceutical: 12.05 mCi F-18 FDG (Fluorodeoxyglucose), IV. Time of imaging post radiopharmaceutical administration: 1 hour Injection site: Left antecubital [id number] 10/08/2022 9:52 AM FINDINGS: Tubes, catheters and devices: A right subclavian central venous port catheter terminates in the right atrium. Brain: Visualized brain has normal physiologic uptake. Pharynx: No abnormal uptake. Larynx: No abnormal uptake. Lungs, pleura and trachea: Similar moderate right pleural effusion. Mild uptake in the right lower lobe pleural surface is noted, SUV max 3.1 (previously 3.7). Bandlike soft tissue density extending from the pleural surface of the right upper lobe to the right perihilar region is noted with low-level uptake, SUV max 2.7 (previously 2.3). [id number] bilateral centrilobular emphysematous changes. A left lower lobe calcified granuloma is present. Heart: Small pericardial effusion. Mediastinal space: No abnormal uptake. Liver: No abnormal uptake. Gallbladder and bile ducts: No abnormal uptake. Pancreas: No abnormal uptake. Spleen: No abnormal uptake. Adrenal glands: No abnormal uptake. Kidneys and ureters: Normal physiologic uptake. Punctate nonobstructing bilateral renal calculi are noted. Stomach and bowel: No abnormal uptake. There are scattered colonic diverticula. Vasculature: No abnormal uptake. Lymph nodes: Uptake in the mid right hilar region is noted, SUV max 3.7 (previously 3.1) without a well-defined lymph node or mass on corresponding CT series 3 image 91. Superior to this level in the superior right perihilar region on image 81, uptake without a well-defined mass or lymph node demonstrates an SUV max 3.4 (previously 3.5). Assessment of these regions is limited without intravenous contrast. There are calcified mediastinal and bilateral hilar lymph nodes. Bones/joints: No abnormal uptake in the visualized axial and appendicular skeleton. There is mild to moderate diffuse vertebral body spondylosis. There is mild serpiginous sclerotic density in the superior right femoral head on CT series 3, images 236 through 240 without elevated uptake. Soft tissues: No abnormal uptake in the visualized head, neck, chest, abdomen, pelvis, and extremities. METRICS: Mediastinal blood pool: SUV max 3.0 [id number] IMPRESSION: 1. Interval increase in uptake in the mid right hilar region (SUV max 3.7, previously 3.1) concerning for malignancy. 2. Persistent but slightly decreased uptake in the previously noted region of uptake in the anterior superior right hilar region (SUV max 3.4, previously 3.5). This may represent post treatment inflammatory changes although malignancy cannot be excluded. 3. Similar bandlike density extending from the right pleural surface in the right perihilar region with low-level uptake, likely related to post treatment inflammatory changes and scarring. 4. Similar moderate right pleural effusion. 5. 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 Consider right hip MRI for further assessment. 6. Additional nonurgent findings as detailed above.
== END 2023-03-14 13:47 | disposition home or self-care (01) ==
LOC: RAD 13:47
PROVIDERS: PCP Family Medicine; Visit Provider Internal Medicine
DX: C34.11 Malignant neoplasm of upper lobe, right bronchus or lung (principal); Z92.21 Personal history of antineoplastic chemotherapy; Z92.3 Personal history of irradiation; R91.8 Other nonspecific abnormal finding of lung field; J90 Pleural effusion, not elsewhere classified
CPT/HCPCS: 78815; A9552

== ENCOUNTER 2023-03-30 10:15 | Oncology outpatient (recurring) (ONCR) | payer MEDICARE, BC, SELFPAY | END 2023-04-26 23:59 | disposition home or self-care (01) | PROVIDERS: PCP Family Medicine; Visit Provider Internal Medicine Medical Oncology | DX: Z45.2 Encounter for adjustment and management of vascular access device (principal); Z95.828 Presence of other vascular implants and grafts; C34.11 Malignant neoplasm of upper lobe, right bronchus or lung; J44.9 Chronic obstructive pulmonary disease, unspecified; J70.0 Acute pulmonary manifestations due to radiation; J84.89 Other specified interstitial pulmonary diseases; Z79.899 Other long term (current) drug therapy | CPT/HCPCS: 99214 ==

== ENCOUNTER 2023-05-02 09:03 | Outpatient (CLI) | payer MEDICARE, BC, SELFPAY ==
--- NOTE | 2023-05-02 09:30 | MR_ITS ---
WS: [id number] MRI BRAIN WITH AND WITHOUT CONTRAST HISTORY: Surveillance lung cancer. History of mets to the brain. COMPARISON: 10/25/2022 TECHNIQUE: Multiplanar imaging performed through the brain with MultiHance 20 ml's IV. No acute infarcts are seen. Padilla-white matter differentiation is well preserved. There is extensive s mall vessel ischemic disease throughout the white matter which is very similar to the prior studies. No prior infarcts. Focal scar in the RIGHT temporal lobe may be from a prior treated neoplasm. No susceptibility artifacts or prior lacunar infarcts. Ventricles and extra-axial spaces are normal. Clivus and pituitary gland are normal. Visualized posterior fossa and brainstem are also normal. Postcontrast images are negative for masses or vascular malformations. Dural venous sinuses are normal. Paranasal sinuses: Well aerated with no significant disease. Mastoid air cells: Normal. Calvarium and scalp: Normal. IMPRESSION: 1. No evidence for metastatic disease to the brain. There are no enhancing nodules. 2. Advanced small vessel ischemic disease is similar to prior examinations. 3. No hemorrhage. No acute infarct.
[2023-05-02] MEDS: gadobenate dimeglumine 20 mL vial IV (09:55)
== END 2023-05-02 09:04 | disposition home or self-care (01) ==
LOC: RAD 09:03
PROVIDERS: PCP Family Medicine; Visit Provider Internal Medicine
DX: C34.11 Malignant neoplasm of upper lobe, right bronchus or lung (principal); C79.31 Secondary malignant neoplasm of brain
CPT/HCPCS: 70553; A9577

== ENCOUNTER → 2023-06-30 08:36 | Outpatient (BNVA) | payer MEDICARE, BC, SELFPAY | PROVIDERS: PCP Family Medicine; Visit Provider Internal Medicine Pulmonary Disease | DX: J44.9 Chronic obstructive pulmonary disease, unspecified (principal); J70.0 Acute pulmonary manifestations due to radiation; J84.89 Other specified interstitial pulmonary diseases; J90 Pleural effusion, not elsewhere classified; Z87.891 Personal history of nicotine dependence; Z85.118 Personal history of other malignant neoplasm of bronchus and lung | CPT/HCPCS: 99214 ==

== ENCOUNTER 2023-07-03 11:08 | Outpatient (CLI) | payer MEDICARE, BC, SELFPAY ==
[2023-07-03 12:24] LABS: Blood Urea Nitrogen 14 mg/dL (8-23)
[2023-07-03] MEDS: iohexol 350 mg/mL 500 mL Btl (per mL) PO (12:34)
[2023-07-03] MEDS: iohexol 350 mg/mL 500 mL Btl (per mL) IV (12:35)
--- NOTE | 2023-07-03 13:30 | CT_ITS ---
WS: [id number] CT CHEST, ABDOMEN AND PELVIS WITH CONTRAST HISTORY: Follow-up lung cancer. TECHNIQUE: Contiguous 5 mm axial imaging performed through the chest, abdomen and pelvis with IV cont rast, oral contrast has been provided. Coronal and sagittal reformats chest. Coronal and sagittal ref ormats through the abdomen and pelvis. All CT scans at [facility] use at least one of these d ose optimization techniques: automated exposure control; mA and/or kV adjustment per patient size (in cludes targeted exams where dose is matched to clinical indication); or iterative reconstruction. CONTRAST: Omnipaque 350; 100 mL IV. DLP: 1514.46 mGy.cm COMPARISON: 03/17/2022, PET/CT 03/14/[address]: Volume loss and pleural thickening throughout the RIGHT thorax. Continued RIGHT perihilar s oft tissue thickening surrounding the bronchovascular tree. The extent of the soft tissue thickening does appear improved since 03/17/2022 and the more recent PET/CT. That prior study was performed with out IV contrast making evaluation difficult. Bandlike areas of scarring or atelectasis in the RIGHT u pper thorax are similar to prior studies. Small layering RIGHT pleural effusion as noted on the prior study. There is also a circumferential pericardial effusion which is slightly increased in size. Mil d cardiomegaly. No new adenopathy. RIGHT Mediport. Abdomen CT: Liver and spleen are negative. Normal gallbladder. Negative portal vein. No pancreatic ma ss. No adrenal mass. Mild cortical atrophy of each kidney with no obstruction. Moderate atheroscleros is aorta. No ascites or adenopathy. No GI tract obstruction. Sigmoid diverticulosis without acute diverticulitis. Small ventral abdominal wall hernia contains fat only. Pelvic CT: No free fluid or adenopathy. Negative urinary bladder. Osteonecrosis RIGHT femoral head. IMPRESSION: 1. As compared to the noncontrast chest CT of 03/17/2022 and a prior PET/CT of 03/14/2023 the RIGHT hilar prominence appears improved. There is still parabronchial soft tissue thickening at the hilum. No new mass or new adenopathy identified. 2. Chronic volume loss in the RIGHT thorax with areas of linear scarring and atelectasis. 3. Small layering RIGHT pleural effusion. 4. Small pericardial effusion but increased since 03/17/2022. 5. No metastatic disease to the liver or adrenal glands. 6. Sigmoid diverticulosis without acute diverticulitis. 7. RIGHT femoral head osteonecrosis.
== END 2023-07-03 11:09 | disposition home or self-care (01) ==
LOC: RAD 11:10
PROVIDERS: PCP Family Medicine; Visit Provider Internal Medicine
DX: C34.90 Malignant neoplasm of unspecified part of unspecified bronchus or lung (principal); J90 Pleural effusion, not elsewhere classified; K57.30 Diverticulosis of large intestine without perforation or abscess without bleeding; M87.851 Other osteonecrosis, right femur
CPT/HCPCS: 71260; 74177; 82565; 84520; Q9967

== ENCOUNTER 2023-07-06 09:48 | Oncology outpatient (recurring) (ONCR) | payer MEDICARE, BC, SELFPAY ==
[2023-07-06 10:05] LABS: Basophils % 0.3 %; Eosinophils % 1.3 %; Hematocrit 41.1 % (37-53); Lymphocytes # 0.5 10^3/uL (0.8-4.8); Lymphocytes % 15.3 %; Mean Corpuscular HGB Conc 31.1 g/dL (30-55); Mean Corpuscular Hemoglobin 27.2 pg (27-33); Mean Corpuscular Volume 87.4 fl (82-101); Mean Platelet Volume 10.6 fL (7.4-10.4); Monocytes # 0.5 10^3/uL (0.2-0.9); Monocytes % 15.3 %; Neutrophils # 2.03 10^3/uL (1.8-7.7); Neutrophils % 67.5 %; Nucleated Red Blood Cells % 0 %; Platelet Count 213 10^3/cmm (157-399); Red Cell Distribution Width 14.1 % (12.1-15.1); White Blood Count 3.01 10^3/uL (3.29-11.43)
[2023-07-06 10:22] LABS: Alanine Aminotransferase 11 U/L (0-41); Albumin Level 4.3 g/dL (3.5-5.2); Alkaline Phosphatase 94 U/L (40-130); Aspartate Amino Transferase 15 U/L (0-40); Blood Urea Nitrogen 15 mg/dL (8-23); Calcium 8.8 mg/dL (8.5-10.5); Carbon Dioxide 28 mmol/L (22-29); Chloride 105 mmol/L (98-107); Globulin 2.4 g/dL (1.3-4.6); Glucose 112 mg/dL (65-115); Osmolality Calculated 298 mOsm/kg (285-295); Sodium 143 mmol/L (136-145); Total Bilirubin 0.4 mg/dL (0.15-1.2); Total Protein 6.7 g/dL (6.6-8.7)
== END 2023-07-25 23:59 | disposition home or self-care (01) ==
PROVIDERS: PCP Family Medicine; Visit Provider Internal Medicine
DX: Z45.2 Encounter for adjustment and management of vascular access device (principal); Z95.828 Presence of other vascular implants and grafts; C34.11 Malignant neoplasm of upper lobe, right bronchus or lung; J44.9 Chronic obstructive pulmonary disease, unspecified; J70.0 Acute pulmonary manifestations due to radiation; J84.89 Other specified interstitial pulmonary diseases; Z79.899 Other long term (current) drug therapy
CPT/HCPCS: 36591; 80053; 85025; 99215

== ENCOUNTER 2023-09-05 09:50 | Outpatient (CLI) | payer MEDICARE, BC, SELFPAY ==
--- NOTE | 2023-09-05 11:00 | CTR_ITS ---
PROCEDURE INFORMATION: Exam: CT Chest With Contrast; Diagnostic Exam date and time: 09/05/2023 12:05 PM Age: 78 years old Clinical indication: Condition or disease; Lung condition and disease; Cancer of the lung; Bilateral; Unspecified; Primary cancer: Lung cancer; Prior surgery; Surgery date: 1-6 months; Surgery type: Port TECHNIQUE: Imaging protocol: Diagnostic computed tomography of the chest with contrast. Radiation optimization: All CT scans at this facility use at least one of these dose optimization techniques: automated exposure control; mA and/or kV adjustment per patient size (includes targeted exams where dose is matched to clinical indication); or iterative reconstruction. Contrast material: OMNI 350; Contrast volume: 100 ml; Contrast route: INTRAVENOUS (IV); COMPARISON: CT chest abdpel w/*[id number] 07/03/2023 12:26 PM RADIATION DOSE METRICS: Total DLP (mGy-cm): 1498.83 FINDINGS: Tubes, catheters and devices: There is a right chest port with the line tip appropriately positioned in the lower SVC near the cavoatrial junction. Lungs: There is moderate upper lung predominant centrilobular emphysema. There is extensive right perihilar pulmonary parenchymal architectural distortion. No discrete pulmonary mass or suspicious nodule. Moderate volume loss in the right lung. There is a benign calcified granuloma in the left lower lobe. Pleural spaces: Small loculated simple right pleural effusion. Heart: There is mild cardiac enlargement. There is a small pericardial effusion. Mediastinal space: Stable architectural distortion and soft tissue density in the right hilum. Lymph nodes: There is no mediastinal or hilar lymphadenopathy. Vasculature: There is moderate aortic atherosclerotic disease. Visible portions of the pulmonary arteries are normal. Bones/joints: No suspicious bone lesions. Soft tissues: The extrathoracic soft tissues are unremarkable. PROCEDURE INFORMATION: Exam: CT Abdomen And Pelvis With Contrast Exam date and time: 09/05/2023 12:05 PM Age: 78 years old Clinical indication: Condition or disease; Lung condition and disease; Cancer of the lung; Bilateral; Unspecified; Primary cancer: Lung cancer; Prior surgery; Surgery date: 1-6 months; Surgery type: Port TECHNIQUE: Imaging protocol: Computed tomography of the abdomen and pelvis with contrast. Radiation optimization: All CT scans at this facility use at least one of these dose optimization techniques: automated exposure control; mA and/or kV adjustment per patient size (includes targeted exams where dose is matched to clinical indication); or iterative reconstruction. Contrast material: OMNI 350; Contrast volume: 100 ml; Contrast route: INTRAVENOUS (IV); COMPARISON: CT chest abdpel w/*[id number] 07/03/2023 12:26 PM RADIATION DOSE METRICS: Total DLP (mGy-cm): 1498.83 FINDINGS: Liver: The liver is normal. Gallbladder and bile ducts: The gallbladder is normal. There is no biliary dilation. Pancreas: The pancreas is unremarkable. Spleen: The spleen is mildly enlarged. Adrenal glands: The adrenal glands are unremarkable. Kidneys and ureters: There is a 2 mm nonobstructive stone in each kidney. There is no hydronephrosis or ureteral dilation. Renal parenchymal enhancement pattern is normal. Stomach and bowel: The stomach is nondistended, limiting assessment of wall thickness. The small bowel is nondilated. There is moderate sigmoid colonic diverticulosis without evidence of diverticulitis. Appendix: The appendix is normal. Intraperitoneal space: There is no free air or significant intraperitoneal free fluid. Vasculature: There is severe aortic atherosclerotic disease. 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 The portal, splenic and superior mesenteric veins are patent. Lymph nodes: There is no lymphadenopathy in the retroperitoneum, mesentery, pelvis or inguinal regions. Urinary bladder: The urinary bladder is unremarkable. Reproductive: The prostate and seminal vesicles are unremarkable. Bones/joints: There is moderate degenerative disease in the lumbar spine. There is a serpiginous band of sclerosis in the right femoral head consistent with avascular necrosis. There is no subchondral collapse. The pelvis and hips are intact. No suspicious bone lesions. Soft tissues: There is a small fat containing umbilical hernia. CT/CT chest abdpel w/*[id number] IMPRESSION: 1. No sign of disease progression in the thorax. 2. Stable parenchymal architectural distortion in the right lung consistent with treatment changes. No suspicious pulmonary nodule or mass. 3. Stable architectural distortion and confluent soft tissue density in the right hilum since 07/03/2023. Possible residual neoplasm and/or treatment changes. 4. Small loculated right pleural effusion is decreased since 07/03/2023. 5. Moderate centrilobular emphysema. IMPRESSION: 1. No sign of metastases in the abdomen or pelvis. 2. Incidental findings above.
[2023-09-05 11:53] LABS: Blood Urea Nitrogen 19 mg/dL (8-23)
[2023-09-05] MEDS: iohexol 350 mg/mL 500 mL Btl (per mL) IV (13:24)
[2023-09-05] MEDS: iohexol 350 mg/mL 500 mL Btl (per mL) PO (13:25)
== END 2023-09-05 09:51 | disposition home or self-care (01) ==
PROVIDERS: PCP Family Medicine; Visit Provider Internal Medicine
DX: C34.90 Malignant neoplasm of unspecified part of unspecified bronchus or lung (principal); Z95.9 Presence of cardiac and vascular implant and graft, unspecified; I70.0 Atherosclerosis of aorta
CPT/HCPCS: 71260; 74177; 82565; 84520; Q9967

== ENCOUNTER 2023-10-10 13:23 | Oncology outpatient (recurring) (ONCR) | payer MEDICARE, BC, SELFPAY ==
[2023-10-10 13:42] LABS: Basophils % 0.2 %; Eosinophils # 0.1 10^3/uL (0.0-0.8); Eosinophils % 2.1 %; Hematocrit 40.6 % (37-53); Lymphocytes # 0.5 10^3/uL (0.8-4.8); Lymphocytes % 11.2 %; Mean Corpuscular HGB Conc 31.5 g/dL (30-55); Mean Corpuscular Hemoglobin 27.3 pg (27-33); Mean Corpuscular Volume 86.6 fl (82-101); Mean Platelet Volume 10.7 fL (7.4-10.4); Monocytes # 0.6 10^3/uL (0.2-0.9); Monocytes % 13.3 %; Neutrophils % 72.5 %; Nucleated Red Blood Cells % 0 %; Platelet Count 195 10^3/cmm (157-399); Red Blood Count 4.69 10^6/uL (3.85-5.65); Red Cell Distribution Width 14.6 % (12.1-15.1); White Blood Count 4.28 10^3/uL (3.29-11.43)
[2023-10-10 13:58] LABS: Alanine Aminotransferase 13 U/L (0-41); Albumin Level 4.3 g/dL (3.5-5.2); Alkaline Phosphatase 90 U/L (40-130); Anion Gap 17.9 (5-19); Aspartate Amino Transferase 18 U/L (0-40); Blood Urea Nitrogen 18 mg/dL (8-23); Calcium 8.9 mg/dL (8.5-10.5); Carbon Dioxide 26 mmol/L (22-29); Chloride 100 mmol/L (98-107); Globulin 2.6 g/dL (1.3-4.6); Glucose 104 mg/dL (65-115); Osmolality Calculated 290 mOsm/kg (285-295); Potassium 4.9 mmol/L (3.5-5.1); Sodium 139 mmol/L (136-145); Total Bilirubin 0.5 mg/dL (0.15-1.2); Total Protein 6.9 g/dL (6.6-8.7)
[2023-10-10 14:40] LABS: Hepatitis A Antibody IgM Non-Reactive (Nonreactive); Hepatitis B Core AB, Total Non-Reactive (Nonreactive); Hepatitis B Surface AB < 3.5 (11.5-1000); Hepatitis B Surface Antigen Non-Reactive (Nonreactive); Hepatitis C Virus Antibody Non-Reactive (Nonreactive)
== END 2023-10-25 23:59 | disposition home or self-care (01) ==
PROVIDERS: PCP Family Medicine; Visit Provider Internal Medicine
DX: C34.11 Malignant neoplasm of upper lobe, right bronchus or lung; J44.9 Chronic obstructive pulmonary disease, unspecified; Z79.899 Other long term (current) drug therapy; J90 Pleural effusion, not elsewhere classified
CPT/HCPCS: 36591; 80053; 85025; 86705; 86706; 86709; 86803; 87340; 99214

== ENCOUNTER 2024-01-16 11:04 | Oncology outpatient (recurring) (ONCR) | payer MEDICARE, BC, SELFPAY ==
[2024-01-16 11:40] LABS: Basophils % 0.5 %; Eosinophils # 0.1 10^3/uL (0.0-0.8); Eosinophils % 2.4 %; Hematocrit 39.1 % (37-53); Lymphocytes # 0.4 10^3/uL (0.8-4.8); Lymphocytes % 11.4 %; Mean Corpuscular HGB Conc 31.5 g/dL (30-55); Mean Corpuscular Hemoglobin 28.3 pg (27-33); Mean Corpuscular Volume 90.1 fl (82-101); Mean Platelet Volume 10.1 fL (7.4-10.4); Monocytes # 0.5 10^3/uL (0.2-0.9); Monocytes % 14.6 %; Neutrophils # 2.59 10^3/uL (1.8-7.7); Neutrophils % 70.3 %; Nucleated Red Blood Cells % 0 %; Platelet Count 193 10^3/cmm (157-399); Red Blood Count 4.34 10^6/uL (3.85-5.65); Red Cell Distribution Width 14.8 % (12.1-15.1); White Blood Count 3.69 10^3/uL (3.29-11.43)
[2024-01-16 11:55] LABS: Alanine Aminotransferase 12 U/L (0-41); Albumin Level 4.2 g/dL (3.5-5.2); Alkaline Phosphatase 79 U/L (40-130); Anion Gap 12.9 (5-19); Aspartate Amino Transferase 17 U/L (0-40); Blood Urea Nitrogen 13 mg/dL (8-23); Calcium 8.6 mg/dL (8.5-10.5); Carbon Dioxide 29 mmol/L (22-29); Chloride 102 mmol/L (98-107); Creatinine Clr Calc Pharmacy 66.0984; Globulin 2.3 g/dL (1.3-4.6); Glucose 107 mg/dL (65-115); Osmolality Calculated 289 mOsm/kg (285-295); Potassium 4.9 mmol/L (3.5-5.1); Sodium 139 mmol/L (136-145); Total Bilirubin 0.5 mg/dL (0.15-1.2); Total Protein 6.5 g/dL (6.6-8.7)
== END 2024-01-25 23:59 | disposition home or self-care (01) ==
PROVIDERS: Nurse Practitioner Family; PCP Family Medicine; Visit Provider Internal Medicine
DX: C34.11 Malignant neoplasm of upper lobe, right bronchus or lung (principal); J44.9 Chronic obstructive pulmonary disease, unspecified; J90 Pleural effusion, not elsewhere classified; Z79.899 Other long term (current) drug therapy; Z53.9 Procedure and treatment not carried out, unspecified reason
CPT/HCPCS: 36591; 80053; 85025; 99214

== ENCOUNTER 2024-02-16 11:00 | Oncology outpatient (recurring) (ONCR) | payer MEDICARE, BC, SELFPAY ==
--- NOTE | 2024-02-01 10:15 | MR_ITS ---
WS: [id number] MRI BRAIN WITH AND WITHOUT CONTRAST HISTORY: surveillance, history of brain metastasis. COMPARISON: 05/02/2023 TECHNIQUE: Multiplanar imaging performed through the brain with MultiHance 20 ml's IV. No acute infarcts are seen. Padilla-white matter differentiation is well preserved. Extensive increased T2 and FLAIR signal hyperintensities throughout the white matter with very mild progression since the prior study. No additional infarct. Scars in the RIGHT temporal lobe. No susceptibility artifacts or prior lacunar infarcts. Ventricles and extra-axial spaces are normal. Clivus and pituitary gland are normal. Visualized posterior fossa and brainstem are also normal. Postcontrast images are negative for masses or vascular malformations. Dural venous sinuses are normal. Paranasal sinuses: Well aerated with no significant disease. Mastoid air cells: Normal. Calvarium and scalp: Normal. MR/MR head wo/w con [id number] IMPRESSION: 1. No evidence for metastatic disease to the brain. There are no enhancing mas ses or nodules within the brain. 2. Advanced small vessel disease with mild progression since the most recent s tudies. 3. No acute infarct or hemorrhage.
[2024-02-01] MEDS: gadobenate dimeglumine 20 mL vial IV (10:31)
[2024-02-02] MEDS: iohexol 350 mg/mL 500 mL Btl (per mL) IV (08:00)
[2024-02-02] MEDS: iohexol 350 mg/mL 500 mL Btl (per mL) PO (08:01)
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
== END 2024-02-24 23:59 | disposition home or self-care (01) ==
PROVIDERS: PCP Family Medicine; Visit Provider Nurse Practitioner Family
DX: Z53.9 Procedure and treatment not carried out, unspecified reason (principal)
CPT/HCPCS: 70553; 71260; 74177

== ENCOUNTER 2024-02-29 10:49 | Outpatient (CLI) | payer MEDICARE, BC, SELFPAY ==
--- NOTE | 2024-02-29 11:00 | FL_ITS ---
WS: [id number] FL barium swallow modifd [id number] REASON FOR EXAM: Food sticking FLUOROSCOPY TIME: 2min [id number] # OF SPOT FILMS: None FINDINGS: Examination was supervised by the speech therapy department. Patient was examined in the sitting upright lateral projection. Swallowing of various barium consistencies was monitored fluoroscopically and video recorded. No obstruction or aspiration. Detailed report of the swallow rendered by the speech therapy department. FL/FL barium swallow modifd [id number] IMPRESSION: Modified barium swallow as above.
== END 2024-02-29 10:50 | disposition home or self-care (01) ==
LOC: RAD 10:49
PROVIDERS: PCP Family Medicine; Visit Provider Nurse Practitioner Family
DX: R13.10 Dysphagia, unspecified (principal)
CPT/HCPCS: 74230; 92611

== ENCOUNTER 2024-04-17 11:29 | Oncology outpatient (recurring) (ONCR) | payer MEDICARE, OTHER, SELFPAY ==
[2024-04-17 11:43] LABS: Basophils % 0.3 %; Eosinophils # 0.1 10^3/uL (0.0-0.8); Eosinophils % 0.7 %; Hematocrit 44.5 % (37-53); Lymphocytes # 0.6 10^3/uL (0.8-4.8); Lymphocytes % 7.9 %; Mean Corpuscular HGB Conc 30.3 g/dL (30-55); Mean Corpuscular Hemoglobin 27.2 pg (27-33); Mean Corpuscular Volume 89.5 fl (82-101); Mean Platelet Volume 10.6 fL (7.4-10.4); Monocytes # 0.7 10^3/uL (0.2-0.9); Monocytes % 9.7 %; Neutrophils # 5.75 10^3/uL (1.8-7.7); Nucleated Red Blood Cells % 0 %; Platelet Count 145 10^3/cmm (157-399); Red Blood Count 4.97 10^6/uL (3.85-5.65); Red Cell Distribution Width 13.5 % (12.1-15.1); White Blood Count 7.19 10^3/uL (3.29-11.43)
[2024-04-17 12:03] LABS: Alanine Aminotransferase 15 U/L (0-41); Alkaline Phosphatase 77 U/L (40-130); Anion Gap 14.1 (5-19); Aspartate Amino Transferase 12 U/L (0-40); Blood Urea Nitrogen 26 mg/dL (8-23); Calcium 8.9 mg/dL (8.5-10.5); Carbon Dioxide 29 mmol/L (22-29); Chloride 101 mmol/L (98-107); Globulin 2.3 g/dL (1.3-4.6); Glucose 113 mg/dL (65-115); Osmolality Calculated 294 mOsm/kg (285-295); Potassium 5.1 mmol/L (3.5-5.1); Sodium 139 mmol/L (136-145); Total Bilirubin 0.5 mg/dL (0.15-1.2); Total Protein 6.3 g/dL (6.6-8.7)
[2024-04-17 12:06] LABS: Creatinine Clr Calc Pharmacy 60.4033
== END 2024-04-26 23:59 | disposition home or self-care (01) ==
PROVIDERS: PCP Family Medicine; Visit Provider Nurse Practitioner Family
DX: Z08 Encounter for follow-up examination after completed treatment for malignant neoplasm (principal); Z85.118 Personal history of other malignant neoplasm of bronchus and lung; Z85.841 Personal history of malignant neoplasm of brain; J44.9 Chronic obstructive pulmonary disease, unspecified; J90 Pleural effusion, not elsewhere classified; Z87.891 Personal history of nicotine dependence; Z92.3 Personal history of irradiation; Z92.25 Personal history of immunosuppression therapy; Z92.21 Personal history of antineoplastic chemotherapy
CPT/HCPCS: 36591; 80053; 85025; 99213

== ENCOUNTER 2024-05-10 12:05 | Oncology outpatient (recurring) (ONCR) | payer MEDICARE, OTHER, SELFPAY ==
--- NOTE | 2024-05-10 12:15 | CTR_ITS ---
PROCEDURE INFORMATION: Exam: CT Chest With Contrast; Diagnostic Exam date and time: 05/10/2024 12:32 PM Age: 78 years old Clinical indication: Abnormal findings; Abnormal radiologic exam of lung or chest; Prior surgery; Surgery date: 6+ months; Surgery type: Port, fluid removal; Narrowing of central right bronchi, PT denies any issues today. History of lung CA with chemo/radiation x5 yrs ago TECHNIQUE: Imaging protocol: Diagnostic computed tomography of the chest with contrast. Radiation optimization: All CT scans at this facility use at least one of these dose optimization techniques: automated exposure control; mA and/or kV adjustment per patient size (includes targeted exams where dose is matched to clinical indication); or iterative reconstruction. Contrast material: OMNI 350; Contrast volume: 95 ml; Contrast route: INTRAVENOUS (IV); COMPARISON: CT chest abdpel w/*[id number] 02/02/2024 8:52 AM RADIATION DOSE METRICS: Total DLP (mGy-cm): 621.63 FINDINGS: Tubes, catheters and devices: Right port infusion catheter is present with tip in SVC. Thyroid: No significant thyroid pathology. Lungs: Volume loss in the right hemithorax with features of prior surgery again noted. Surgical clips are present posterior to the right mainstem bronchus. Right hilar peribronchovascular soft tissue thickening is again noted. Narrowing of the central right lower lobe bronchi again noted. Adjacent bandlike opacities extending to the peripheral pleural surfaces again seen. Stable soft tissue thickening along the medial aspect of the right upper lobe at the mediastinal pleural surface. Stable irregular opacity at the pleural surface of the right upper lobe anterolaterally on series 3, image 18. Other areas of peripheral scarring in the right lower lobe again seen. Severe pulmonary emphysema again noted. Pleural spaces: Small complex right pleural effusion associated with pleural thickening noted without change. No left pleural abnormality evident. Heart: Stable small pericardial effusion. Coronary arteries: Coronary artery calcifications. Lymph nodes: Unremarkable. No enlarged lymph nodes. Vasculature: No evidence of thoracic aortic aneurysm. Intraperitoneal space: No significant pathology in the imaged upper abdomen. Bones/joints: Mild degenerative change present in the spine. No bony metastasis evident. Soft tissues: Unremarkable. CT/CT chest w con* [id number] IMPRESSION: 1. Stable exam. Diffuse peribronchovascular soft tissue thickening of the right hilum again noted. Stable areas peripheral irregular opacity in the right upper lobe likely at least partially secondary to scarring. 2. Unchanged small complex right pleural effusion associated with pleural thickening and 3. Small pericardial effusion. 4. Stable small pericardial effusion. COMMENTS: The presence of pulmonary emphysema on CT is an independent risk factor for lung cancer. In the absence of a history or active diagnosis of lung cancer, it is recommended that this patient with emphysema be evaluated for enrollment in a low dose CT lung cancer screening program.
[2024-05-10] MEDS: iohexol 350 mg/mL 500 mL Btl (per mL) IV (12:39)
== END 2024-05-24 23:59 | disposition home or self-care (01) ==
LOC: RAD 12:06 → ONCMED 05-13 10:07
PROVIDERS: PCP Family Medicine; Visit Provider Nurse Practitioner Family
DX: Z08 Encounter for follow-up examination after completed treatment for malignant neoplasm (principal); Z85.118 Personal history of other malignant neoplasm of bronchus and lung; Z85.841 Personal history of malignant neoplasm of brain; J44.9 Chronic obstructive pulmonary disease, unspecified; J90 Pleural effusion, not elsewhere classified; Z87.891 Personal history of nicotine dependence; Z92.3 Personal history of irradiation; Z92.25 Personal history of immunosuppression therapy; Z92.21 Personal history of antineoplastic chemotherapy; Z53.9 Procedure and treatment not carried out, unspecified reason; C34.11 Malignant neoplasm of upper lobe, right bronchus or lung; C34.90 Malignant neoplasm of unspecified part of unspecified bronchus or lung; C79.31 Secondary malignant neoplasm of brain; I67.9 Cerebrovascular disease, unspecified
CPT/HCPCS: 71260

== ENCOUNTER 2024-08-01 10:30 | Oncology outpatient (recurring) (ONCR) | payer MEDICARE, OTHER, SELFPAY ==
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
[2024-07-25 16:10] LABS: Blood Urea Nitrogen 13 mg/dL (8-23)
[2024-07-25] MEDS: iohexol 350 mg/mL 500 mL Btl (per mL) IV (16:14)
[2024-07-25] MEDS: iohexol 350 mg/mL 500 mL Btl (per mL) PO (16:14)
[2024-08-01 10:32] LABS: Basophils % 0.7 %; Eosinophils % 0.9 %; Lymphocytes # 0.5 10^3/uL (0.8-4.8); Lymphocytes % 10.8 %; Mean Corpuscular HGB Conc 31.2 g/dL (30-55); Mean Corpuscular Hemoglobin 28.4 pg (27-33); Mean Corpuscular Volume 91.1 fl (82-101); Mean Platelet Volume 10.4 fL (7.4-10.4); Monocytes # 0.6 10^3/uL (0.2-0.9); Neutrophils # 3.07 10^3/uL (1.8-7.7); Neutrophils % 71.9 %; Nucleated Red Blood Cells % 0 %; Platelet Count 191 10^3/cmm (157-399); Red Cell Distribution Width 14.2 % (12.1-15.1); White Blood Count 4.27 10^3/uL (3.29-11.43)
[2024-08-01 10:49] LABS: Alanine Aminotransferase 10 U/L (0-41); Alkaline Phosphatase 79 U/L (40-130); Anion Gap 14.9 (5-19); Aspartate Amino Transferase 12 U/L (0-40); Blood Urea Nitrogen 15 mg/dL (8-23); Calcium 8.9 mg/dL (8.5-10.5); Carbon Dioxide 28 mmol/L (22-29); Chloride 104 mmol/L (98-107); Globulin 2.7 g/dL (1.3-4.6); Glucose 86 mg/dL (65-115); Lactate Dehydrogenase 160 U/L (135-225); Osmolality Calculated 294 mOsm/kg (285-295); Potassium 4.9 mmol/L (3.5-5.1); Sodium 142 mmol/L (136-145); Total Bilirubin 0.4 mg/dL (0.15-1.2); Total Protein 6.7 g/dL (6.6-8.7)
== END 2024-08-24 23:59 | disposition home or self-care (01) ==
PROVIDERS: PCP Family Medicine; Visit Provider Internal Medicine
DX: Z53.9 Procedure and treatment not carried out, unspecified reason; Z08 Encounter for follow-up examination after completed treatment for malignant neoplasm; Z85.118 Personal history of other malignant neoplasm of bronchus and lung; Z85.841 Personal history of malignant neoplasm of brain; J44.9 Chronic obstructive pulmonary disease, unspecified; J90 Pleural effusion, not elsewhere classified; Z87.891 Personal history of nicotine dependence; Z92.3 Personal history of irradiation; Z92.25 Personal history of immunosuppression therapy; Z92.21 Personal history of antineoplastic chemotherapy; C34.11 Malignant neoplasm of upper lobe, right bronchus or lung; C34.90 Malignant neoplasm of unspecified part of unspecified bronchus or lung; C79.31 Secondary malignant neoplasm of brain; I67.9 Cerebrovascular disease, unspecified; J43.9 Emphysema, unspecified; I31.39 Other pericardial effusion (noninflammatory)
CPT/HCPCS: 36415; 71260; 74177; 80053; 82565; 83615; 84520; 85025; 99213

== ENCOUNTER 2024-10-23 08:17 | Outpatient (CLI) | payer MEDICARE, OTHER, SELFPAY | END 2024-10-23 08:18 | disposition home or self-care (01) | LOC: RAD 10-25 07:37 | PROVIDERS: PCP Family Medicine; Visit Provider Specialist | DX: Z85.118 Personal history of other malignant neoplasm of bronchus and lung (principal); J44.9 Chronic obstructive pulmonary disease, unspecified; Z85.830 Personal history of malignant neoplasm of bone; J90 Pleural effusion, not elsewhere classified; Z95.828 Presence of other vascular implants and grafts; J70.0 Acute pulmonary manifestations due to radiation; R13.12 Dysphagia, oropharyngeal phase | CPT/HCPCS: 99213 ==

== ENCOUNTER 2024-10-23 08:38 | Oncology outpatient (recurring) (ONCR) | payer MEDICARE, OTHER, SELFPAY ==
[2024-10-23 08:55] LABS: Hematocrit 41.2 % (37-53); Hemoglobin 12.70 g/dL (11.27-16.99); Mean Corpuscular HGB Conc 30.8 g/dL (30-55); Mean Corpuscular Hemoglobin 27.7 pg (27-33); Mean Corpuscular Volume 89.8 fl (82-101); Nucleated Red Blood Cells % 0 %; Platelet Count 195 10^3/cmm (157-399); Red Blood Count 4.59 10^6/uL (3.85-5.65); White Blood Count 5.83 10^3/uL (3.29-11.43)
[2024-10-23 09:11] LABS: Alanine Aminotransferase 11 U/L (0-41); Albumin Level 4.0 g/dL (3.5-5.2); Alkaline Phosphatase 86 U/L (40-130); Anion Gap 13.5 (5-19); Aspartate Amino Transferase 13 U/L (0-40); Blood Urea Nitrogen 21 mg/dL (8-23); Calcium 9.0 mg/dL (8.5-10.5); Carbon Dioxide 30 mmol/L (22-29); Chloride 104 mmol/L (98-107); Creatinine Clr Calc Pharmacy 54.9753; Globulin 2.8 g/dL (1.3-4.6); Glucose 106 mg/dL (65-115); Osmolality Calculated 299 mOsm/kg (285-295); Potassium 4.5 mmol/L (3.5-5.1); Sodium 143 mmol/L (136-145); Total Protein 6.8 g/dL (6.6-8.7)
== END 2024-10-24 23:59 | disposition home or self-care (01) ==
PROVIDERS: PCP Family Medicine; Visit Provider Internal Medicine
DX: Z53.9 Procedure and treatment not carried out, unspecified reason (principal); Z08 Encounter for follow-up examination after completed treatment for malignant neoplasm; Z85.118 Personal history of other malignant neoplasm of bronchus and lung; Z85.841 Personal history of malignant neoplasm of brain; J44.9 Chronic obstructive pulmonary disease, unspecified; J90 Pleural effusion, not elsewhere classified; Z87.891 Personal history of nicotine dependence; Z92.3 Personal history of irradiation; Z92.25 Personal history of immunosuppression therapy; Z92.21 Personal history of antineoplastic chemotherapy; C34.11 Malignant neoplasm of upper lobe, right bronchus or lung; C34.90 Malignant neoplasm of unspecified part of unspecified bronchus or lung; C79.31 Secondary malignant neoplasm of brain; I67.9 Cerebrovascular disease, unspecified; J43.9 Emphysema, unspecified; I31.39 Other pericardial effusion (noninflammatory)
CPT/HCPCS: 36415; 80053; 83615; 85025; 96523

== ENCOUNTER 2024-11-27 10:53 | Oncology outpatient (recurring) (ONCR) | payer MEDICARE, OTHER, SELFPAY | END 2024-12-24 23:59 | disposition home or self-care (01) | PROVIDERS: PCP Family Medicine; Visit Provider Internal Medicine | DX: Z45.2 Encounter for adjustment and management of vascular access device (principal); Z95.828 Presence of other vascular implants and grafts | CPT/HCPCS: 96523 ==

== ENCOUNTER 2025-01-01 10:35 | Oncology outpatient (recurring) (ONCR) | payer MEDICARE, OTHER, SELFPAY | END 2025-01-24 23:59 | disposition home or self-care (01) | PROVIDERS: PCP Family Medicine; Visit Provider Internal Medicine | DX: Z45.2 Encounter for adjustment and management of vascular access device (principal); Z95.828 Presence of other vascular implants and grafts | CPT/HCPCS: 96523 ==

== ENCOUNTER 2025-02-19 11:05 | Oncology outpatient (recurring) (ONCR) | payer MEDICARE, OTHER, SELFPAY ==
[2025-02-05 10:08] LABS: Blood Urea Nitrogen 22 mg/dL (8-23)
--- NOTE | 2025-02-05 10:15 | CTR_ITS ---
PROCEDURE INFORMATION: Exam: CT Chest With Contrast; Diagnostic Exam date and time: 02/05/2025 10:10 AM Age: 79 years old Clinical indication: Condition or disease; Other: Primary adenocarcinoma of upper lobe of right lung; Prior surgery; Surgery date: 6+ months; Surgery type: --port TECHNIQUE: Imaging protocol: Diagnostic computed tomography of the chest with contrast. Radiation optimization: All CT scans at this facility use at least one of these dose optimization techniques: automated exposure control; mA and/or kV adjustment per patient size (includes targeted exams where dose is matched to clinical indication); or iterative reconstruction. Contrast material: OMNI 350; Contrast volume: 100 ml; Contrast route: INTRAVENOUS (IV); COMPARISON: CT chest abdpel w/*[id number] 07/25/2024 3:51 PM RADIATION DOSE METRICS: Total DLP (mGy-cm): 1535.15 FINDINGS: Tubes, catheters and devices: The right subclavian venous portacatheter tip is in the mid right atrium. Lungs: Previous right lower lobectomy. Right upper lobe pulmonary parenchymal scarring, stable. Left lower lobe calcified pulmonary parenchymal granuloma. Pleural spaces: Minimal right pleural effusion, stable. No pneumothorax. Heart: Interval significant increase in pericardial effusion. No pericardial nodules identified. Coronary arteries: Proximal LAD coronary artery calcifications. Lymph nodes: Bilateral hilar and subcarinal granulomatous nelly calcifications are present. Vasculature: Unremarkable. No aortic aneurysm. Bones/joints: Limited upper thoracic spine syndesmophytes. No destructive bony process identified. Soft tissues: Unremarkable. PROCEDURE INFORMATION: Exam: CT Abdomen And Pelvis With Contrast Exam date and time: 02/05/2025 10:10 AM Age: 79 years old Clinical indication: Condition or disease; Other: Primary adenocarcinoma of upper lobe of right lung; Prior surgery; Surgery date: 6+ months; Surgery type: --port TECHNIQUE: Imaging protocol: Computed tomography of the abdomen and pelvis with contrast. Radiation optimization: All CT scans at this facility use at least one of these dose optimization techniques: automated exposure control; mA and/or kV adjustment per patient size (includes targeted exams where dose is matched to clinical indication); or iterative reconstruction. Contrast material: OMNI 350; Contrast volume: 100 ml; Contrast route: INTRAVENOUS (IV); COMPARISON: CT chest abdpel w/*[id number] 07/25/2024 3:51 PM RADIATION DOSE METRICS: Total DLP (mGy-cm): 1535.15 FINDINGS: Liver: Normal. No mass. Gallbladder and biliary ducts: Normal. No calcified stones. No ductal dilation. Pancreas: Normal. No ductal dilation. Spleen: The spleen is borderline enlarged measuring 13.4 cm longitudinally. Adrenal glands: Normal. No mass. Kidneys and ureters: Right renal benign cysts, largest 0.2 cm. Stomach and bowel: Sigmoid colonic diverticula are present without evidence of diverticulitis. Appendix: No evidence of appendicitis. Intraperitoneal space: No free air. No significant fluid collection. Vasculature: Moderate abdominal aortic atherosclerotic calcification without aneurysm. The iliac vasculature shows marked bilateral atherosclerotic calcifications without evidence of aneurysm. Lymph nodes: No enlarged lymph nodes. Urinary bladder: Unremarkable as visualized. Reproductive: Unremarkable as visualized. Bones/joints: Bilateral lower lumbar facet primary osteoarthritis. Lumbar spine vertebral body marginal osteophytes are noted at multiple levels. No destructive bony process identified. Diffuse osteopenia. The patient demonstrates a transitional vertebra, which is considered to be a partially lumbarized S1 segment, normal variant. 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 Soft tissues: Unremarkable. CT/CT chest abdpel w/*[id number] IMPRESSION: 1. Previous right lower lobectomy. 2. Right upper lobe pulmonary parenchymal scarring, stable. 3. Nonspecific increase in pericardial fluid. 4. Minimal right pleural effusion, stable. 5. No specific evidence of interval/progressive thoracic neoplasia. 6. Coronary atherosclerosis. 7. Please see the abdomen/pelvis CT report of the same date for additional findings. IMPRESSION: 1. Right renal benign cysts. No follow-up imaging is recommended. 2. Diverticulosis. 3. No specific evidence of interval/active abdominal/pelvic neoplasia. 4. Borderline splenomegaly. 5. Right femoral head osteonecrosis. 6. Please see the CT chest report of the same date for additional findings. COMMENTS: Consistent with the [employer]'s Incidental Findings Committee white paper (J Am Edgar Radiol 2018): Any incidental renal lesion less than 1 cm or classified as too small to characterize, or any incidental cystic renal lesion characterized as simple-appearing, is likely benign. No follow-up imaging is recommended for these lesions per consensus recommendations based on imaging criteria.
[2025-02-05] MEDS: iohexol 350 mg/mL 500 mL Btl (per mL) PO (10:22)
[2025-02-05] MEDS: iohexol 350 mg/mL 500 mL Btl (per mL) IV (10:23)
[2025-02-05 11:11] LABS: Hematocrit 39.3 % (37-53); Hemoglobin 12.20 g/dL (11.27-16.99); Mean Corpuscular HGB Conc 31.0 g/dL (30-55); Mean Corpuscular Hemoglobin 27.1 pg (27-33); Mean Corpuscular Volume 87.1 fl (82-101); Nucleated Red Blood Cells % 0 %; Platelet Count 206 10^3/cmm (157-399); Red Blood Count 4.51 10^6/uL (3.85-5.65); White Blood Count 5.29 10^3/uL (3.29-11.43)
[2025-02-05 11:32] LABS: Alanine Aminotransferase 10 U/L (0-41); Albumin Level 4.1 g/dL (3.5-5.2); Alkaline Phosphatase 74 U/L (40-130); Anion Gap 16.1 (5-19); Aspartate Amino Transferase 11 U/L (0-40); Blood Urea Nitrogen 20 mg/dL (8-23); Calcium 8.5 mg/dL (8.5-10.5); Carbon Dioxide 26 mmol/L (22-29); Chloride 99 mmol/L (98-107); Globulin 2.2 g/dL (1.3-4.6); Glucose 96 mg/dL (65-115); Osmolality Calculated 284 mOsm/kg (285-295); Potassium 5.1 mmol/L (3.5-5.1); Sodium 136 mmol/L (136-145); Total Protein 6.3 g/dL (6.6-8.7)
--- NOTE | 2025-02-05 12:15 | MR_ITS ---
WS: [id number] MRI HEAD WITH CONTRAST TECHNIQUE: Sagittal T1, T2 axial, T2 axial FLAIR, axial susceptibility weighted imaging, axial diffusion weighted images, and coronal T2 images were obtained. Pre and post-T1 axial and post T1 coronal images. ADC and FSPGR images. CLINICAL INFORMATION: adenocarcinoma of upper lobe of right lung COMPARISON: 2023 FINDINGS: Some images degraded by motion No evidence of enhancing intracranial metastatic disease considering motion artifact. No hydrocephalus. No mass or mass effect. Moderate small vessel changes. Moderate parenchymal volume loss. No hemosiderin. No restricted diffusion to suggest acute ischemia. No other acute findings MR/MR head wo/w con [id number] IMPRESSION: Some images degraded by motion 1. No evidence of enhanced intracranial metastatic disease. 2. Moderate small vessel changes with moderate parenchymal volume loss. 3. No other acute findings
== END 2025-02-23 23:59 | disposition home or self-care (01) ==
PROVIDERS: PCP Family Medicine; Visit Provider Internal Medicine
DX: Z08 Encounter for follow-up examination after completed treatment for malignant neoplasm (principal); Z85.841 Personal history of malignant neoplasm of brain; Z85.118 Personal history of other malignant neoplasm of bronchus and lung; J44.9 Chronic obstructive pulmonary disease, unspecified; J90 Pleural effusion, not elsewhere classified; Z92.3 Personal history of irradiation; Z95.828 Presence of other vascular implants and grafts
CPT/HCPCS: 36591; 70553; 71260; 74177; 80053; 82565; 83615; 84520; 85025; 99213

== ENCOUNTER 2025-03-03 08:20 | Outpatient (CLI) | payer MEDICARE, OTHER, SELFPAY ==
--- NOTE | 2025-03-03 12:23 | FL_ITS ---
MS barium swallow [id number] REASON FOR EXAM: DYSPHAGIA FLUOROSCOPY TIME: 1min [id number] # OF SPOT FILMS: Multiple TECHNIQUE: The esophagus was evaluated in the standing upright PA and lateral projections, prone MIMS projection, and supine projection. The swallowing of barium was monitored fluoroscopically with multiple rapid sequence spot films obtained. FINDINGS: Cervical esophagus demonstrated no laryngeal vestibule penetration by contrast for aspiration. No cricopharyngeus impingement. Thoracic esophagus demonstrated intermittent lower esophageal sphincter spasm with loss of primary peristaltic wave and retention of contrast within the esophagus in the distal two thirds of the esophagus. There were intermittent tertiary contractions and retropulsion of retained contrast to the level of the sternal notch. IMPRESSION: Normal cervical esophagus. Mild thoracic esophageal dysmotility as above. MTDD
== END 2025-03-03 08:21 | disposition home or self-care (01) ==
LOC: RAD 08:22
PROVIDERS: PCP Family Medicine; Visit Provider Specialist
DX: R13.19 Other dysphagia (principal); K22.89 Other specified disease of esophagus
CPT/HCPCS: 74220

== ENCOUNTER 2025-03-06 12:36 | Outpatient (CLI) | payer MEDICARE, OTHER, SELFPAY ==
--- NOTE | 2025-03-06 12:41 | CT_ITS ---
WS: [id number] CT NECK WITH CONTRAST HISTORY: DYSPHAGIA, history of lung cancer. Radiation treatments 5 to 6 years ago. TECHNIQUE: Contiguous 2 mm axial images are performed through the neck with intravenous contrast. Sagittal and coronal reformats are also submitted. All CT scans at [facility] use at least one of these dose optimization techniques: automated exposure control; mA and/or kV adjustment per patient size (includes targeted exams where dose is matched to clinical indication); or iterative reconstruction. CONTRAST: CONTRAST: Omnipaque 350; 100 mL IV. DLP: 225.72 mGy.cm COMPARISON: Chest CT 02/05/2025 No stenosis involving the larynx or subglottic airway or trachea. Nasopharynx, oropharynx, hypopharynx and larynx are unremarkable. No soft tissue masses or abnormal enhancement. Torus tubarius and fossa of Rosenmuller and parapharyngeal fat are normal. No significant lymphadenopathy is identified. Thyroid gland and salivary glands are normally enhancing with no masses. Mild degenerative disc disease in the mid to lower cervical spine. No destructive bone process. Visualized portions of the skull base demonstrate no abnormalities. Orbits and globes are within normal limits. No soft tissue masses. Visualized paranasal sinuses and mastoid air cells are normal. Volume loss in the RIGHT upper thorax. Opacification with pleural tethering and tagging and loss of volume in the RIGHT upper lobe corresponds to the area of prior radiation treatment. Recent CT demonstrated no interval change. This area is incompletely visualized on this neck CT. Centrilobular emphysema at the apices. Dense calcification in the aortic arch. No adenopathy. Right-sided Mediport. CT/CT neck w con* [id number] IMPRESSION: 1. No laryngeal, subglottic or tracheal stenosis identified. 2. No cervical chain adenopathy. 3. Volume loss in the RIGHT upper thorax with opacification related to surgery and prior radiation treatment. Recent chest CT from 02/06/2024 described no in terval change.
[2025-03-06] MEDS: iohexol 350 mg/mL 500 mL Btl (per mL) IV (13:06)
== END 2025-03-06 12:37 | disposition home or self-care (01) ==
LOC: RAD 12:37
PROVIDERS: PCP Family Medicine; Visit Provider Specialist
DX: R13.10 Dysphagia, unspecified (principal); Z85.118 Personal history of other malignant neoplasm of bronchus and lung; Z92.3 Personal history of irradiation; M50.320 Other cervical disc degeneration, mid-cervical region, unspecified level; R91.8 Other nonspecific abnormal finding of lung field; J43.2 Centrilobular emphysema; J70.1 Chronic and other pulmonary manifestations due to radiation
CPT/HCPCS: 70491